=== PATIENT | male | born 1970 | race Caucasian/White ===

== ENCOUNTER 2022-03-05 15:16 | Emergency (ER) | payer OTHER ==
[~2022-03-05] VITALS: Ht 162.6 cm; Wt 93.4 kg
[2022-03-05 15:33] VITALS: BP 162/106
[2022-03-05 18:35] LABS: BASOPHILS # (AUTO) 0.1 K/uL (0.00-0.22); BASOPHILS % (AUTO) 0.7 % (0.0-2.0); EOSINOPHILS # (AUTO) 0.5 K/uL (0-0.4); EOSINOPHILS % (AUTO) 4.6 % (0.0-4.0); HEMATOCRIT 36.5 % (36-52); HEMOGLOBIN 12.1 g/dL (12.0-18.0); LYMPHOCYTES # (AUTO) 1.5 K/uL (2.0-11.5); MEAN CORPUSCULAR HEMOGLOBIN 31 pg (27-31); MEAN CORPUSCULAR HGB CONC 33 g/dL (33-37); MEAN CORPUSCULAR VOLUME 92.4 fL (80-94); MONOCYTES # (AUTO) 0.6 K/uL (0.8-1.0); MONOCYTES % (AUTO) 6.3 % (1.7-9.3); NEUTROPHILS # (AUTO) 7.3 K/uL (1.8-7.7); NEUTROPHILS % (AUTO) 73.4 % (42.2-75.2); PLATELET COUNT (AUTO) 260 K/uL (140-450); RED BLOOD CELL COUNT(AUTO) 3.95 MIL/uL (4.20-6.10); RED CELL DISTRIBUTION WIDTH 15.8 % (11.6-13.7); WHITE BLOOD COUNT (AUTO) 9.9 K/uL (4.8-10.8)
[2022-03-05 18:56] LABS: ALBUMIN 1.8 g/dL (3.4-5.0); ANION GAP 13.7 (8-16); CHLORIDE 103 mmol/L (98-107); CREATININE 1.3 mg/dL (0.6-1.3); GFR ARICAN-AMERICAN 75 mL/min (>90); GLUCOSE 136 mg/dL (74-106); POTASSIUM 4.7 mmol/L (3.5-5.1); SODIUM SERUM 135 mmol/L (136-145); TOTAL BILIRUBIN 1.5 mg/dL (0.0-1.0); UREA NITROGEN, BLOOD 19 mg/dL (7-18)
== END 2022-03-05 18:59 | disposition left against medical advice (07) ==
LOC: MED 15:16
DX: R14.0 Abdominal distension (gaseous) (principal); R11.10 Vomiting, unspecified; R06.02 Shortness of breath; Z87.19 Personal history of other diseases of the digestive system; R60.0 Localized edema; Z88.6 Allergy status to analgesic agent
CPT/HCPCS: 36415; 80053; 85025; 99283

== ENCOUNTER 2022-03-06 08:30 | Inpatient (IN) | payer OTHER ==
[~2022-03-06] VITALS: Ht 162.6 cm; Wt 95.7 kg
[2022-03-06 08:41] VITALS: BP 140/89
[2022-03-06] MEDS ORDERED: MORPHINE SULFATE 4 MG/ML SYR IVP ONE (09:05)
[2022-03-06] MEDS ORDERED: ONDANSETRON 4 MG/2 ML VIAL IVP ONE (09:05)
[2022-03-06] MEDS ORDERED: cefTRIAXone 2,000 MG in DEXTROSE 5% 100 ML IV ONE (09:05)
[2022-03-06] MEDS ORDERED: cefTRIAXone 2,000 MG VIAL ONE (09:10)
[2022-03-06] MEDS ORDERED: LIDOCAINE/EPI MPF 1%1:200000 30 ML VIAL INJ ONE (09:20)
[2022-03-06 09:28] LABS: BASOPHILS # (AUTO) 0.1 K/uL (0.00-0.22); BASOPHILS % (AUTO) 0.7 % (0.0-2.0); EOSINOPHILS # (AUTO) 0.6 K/uL (0-0.4); EOSINOPHILS % (AUTO) 6.9 % (0.0-4.0); HEMATOCRIT 36.2 % (36-52); LYMPHOCYTES # (AUTO) 1.9 K/uL (2.0-11.5); LYMPHOCYTES % (AUTO) 20.4 % (20.5-51.1); MEAN CORPUSCULAR HEMOGLOBIN 30 pg (27-31); MEAN CORPUSCULAR HGB CONC 33 g/dL (33-37); MEAN CORPUSCULAR VOLUME 91.6 fL (80-94); MONOCYTES # (AUTO) 0.6 K/uL (0.8-1.0); MONOCYTES % (AUTO) 6.8 % (1.7-9.3); NEUTROPHILS % (AUTO) 65.2 % (42.2-75.2); PLATELET COUNT (AUTO) 235 K/uL (140-450); RED BLOOD CELL COUNT(AUTO) 3.95 MIL/uL (4.20-6.10); RED CELL DISTRIBUTION WIDTH 15.5 % (11.6-13.7); WHITE BLOOD COUNT (AUTO) 9.2 K/uL (4.8-10.8)
--- NOTE | 2022-03-06 09:30 | NUR ---
X-Ray at bedside. Addendum: 03/06/22 at 1539 by MEDR The patient's care was reviewed and supervised by Christine Elias, RN, RN.
--- NOTE | 2022-03-06 09:40 | NUR ---
51 y/o male bib self, pt presents to ed with c/o abd pain for 2 weeks, pt was seen here yesterday with same s/s. a&ox4, syriac speaking, ambulates with steady gait. abd round/hard/tender with palpation. pmh: liver cirrhosis allergy: ibuprofen
[2022-03-06 09:45] LABS: PROTHROMBIN TIME 13.1 secs (10.8-13.4)
[2022-03-06 09:58] LABS: ALBUMIN 1.8 g/dL (3.4-5.0); ANION GAP 12.9 (8-16); CARBON DIOXIDE 23.4 mmol/L (21-32); CHLORIDE 104 mmol/L (98-107); CREATININE 1.2 mg/dL (0.6-1.3); GFR ARICAN-AMERICAN 82 mL/min (>90); GLUCOSE 91 mg/dL (74-106); POTASSIUM 4.3 mmol/L (3.5-5.1); TOTAL BILIRUBIN 1.6 mg/dL (0.0-1.0); UREA NITROGEN, BLOOD 20 mg/dL (7-18)
[2022-03-06 09:59] LABS: SODIUM SERUM 136 mmol/L (136-145)
[2022-03-06 10:05] LABS: APPEARANCE,URINE CLEAR (CLEAR); BILIRUBIN,URINE 1+ (NEGATIVE); BLOOD, URINE 3+ (NEGATIVE); COLOR,URINE YELLOW (YELLOW); LEUKOCYTE ESTERASE ,URINE NEGATIVE (NEGATIVE); NITRITE, URINE NEGATIVE (NEGATIVE); UGLUCOSE NEGATIVE (NEGATIVE)
[2022-03-06 10:25] LABS: OTHER CASTS, URINE None Seen /LPF (None Seen); RBC,URINE 11-20 (MOD) /HPF (0-5); WBC,URINE 0-5 /HPF (0-5)
--- NOTE | 2022-03-06 10:26 | NUR ---
Med recon done. Patient does not take any medication.
[2022-03-06] MEDS ORDERED: ONDANSETRON 4 MG/2 ML VIAL IVP PRN (10:30)
[2022-03-06] MEDS ORDERED: MORPHINE SULFATE 2 MG/ML SYR IVP PRN (10:30)
[2022-03-06] MEDS ORDERED: ACETAMINOPHEN 325 MG TAB PO PRN (10:30)
[2022-03-06] MEDS ORDERED: LORazepam 2 MG/ML VIAL IVP PRN (10:30)
[2022-03-06] MEDS ORDERED: HYDROcodone/APAP 5/325 MG 1 TAB TAB PO PRN (10:30)
[2022-03-06] MEDS ORDERED: LACTULOSE 20 GM/30 ML UDC PO ONE (10:55)
--- NOTE | 2022-03-06 11:07 | NUR ---
Patient will be admitted to care of DR. BURRELL. Admited to MED-SURG. Will go to room 122A. Belongings list completed. Report to BROCK MCDANIEL.
[2022-03-06] MEDS: LEVOFLOXACIN 750 MG/D5W PREMIX 150 ML IV SCH (11:40)
--- NOTE | 2022-03-06 11:56 | NUR ---
AROUND 1130, ER NURSE BROUGHT PATIENT TO [facility] WITH WHEELCHAIR. PATIENT IS ABLE TO AMBULATORY TO HIS BED WITH NO ASSIST. PER ER NURSE REPORT THAT PATIENT COME FROM HOME FOR ABDOMEN DISTENTION WITH PAIN. PATIENT DIAGNOSIS ASCITES W/ HX OF LIVER CIRRHOSIS. PATIENT IS FULL COD, ALLERGY TO IBUPROFEN, IV SITE AT R. AC 20G, SALINE LOCK. STRAIGHT I&O. OBSERVATIONS STATUS. ADMISSION VITAL WITHIN PATIENT'S BASELINE (T-P-R:[id number], BP:141/104 ON ROOM AIR, DENY PAIN). WILL CONTINUE TO MONITOR.
[2022-03-06] MEDS: ALBUMIN HUMAN 25% 100 ML IV SCH ×2 (14:12→21:44)
[2022-03-06 15:17] VITALS: BP 141/104
--- NOTE | 2022-03-06 19:31 | NUR ---
RECEIVED ENDORSEMENT FROM DAY SHIFT NURSE FOR CONTINUITY OF CARE. PT IS ON BED, AWAKE, ALERT AND VERBALLY RESPONSIVE. PT VERBA;IZED OF HAVING MILD AND TOLERABLE PAIN ON UPPER ABDOMEN AREA WHICH HE DOES NOT NEED MEDICATION AT THIS TIME. PT IS AT ROOM AIR. NO SOB OR DISTRESS. PT SALINE LOCK ON RIGHT AC 20G INTACT AND PATENT. SKIN INTACT, NO SKIN PROBLEM. CONTINUE MONITORING.
--- NOTE | 2022-03-06 19:32 | NUR ---
ENDORSE PATIENT TO PM SHIFT NURSE WHILE PATIENT REST ON BED, PIV R. AC 20G, SALINE LOCK. STRAIGHT I&O. OBSERVATIONS STATUS
[2022-03-06 20:00] VITALS: BP 154/101
--- NOTE | 2022-03-06 21:44 | NUR ---
INFUSE ALBUMIN WITH WELL TOLERATED, NO SIDE REACTION.
[2022-03-06] MEDS: FUROSEMIDE 40 MG/4 ML VIAL IVP SCH (21:45)
--- NOTE | 2022-03-06 23:44 | NUR ---
ALBUMIN INFUSION COMPLETED. WELL TOLERATED.
[2022-03-07] VITALS: BP 141/90
--- NOTE | 2022-03-07 00:15 | NUR ---
PT IS ASLEEP. NO SOB OR DISTRESS. NO GAGGING OR VOMITING.
[2022-03-07 04:00] VITALS: BP 121/64
[2022-03-07 05:26] LABS: BASOPHILS % (AUTO) 0.5 % (0.0-2.0); EOSINOPHILS # (AUTO) 0.4 K/uL (0-0.4); EOSINOPHILS % (AUTO) 4.8 % (0.0-4.0); HEMATOCRIT 32.6 % (36-52); HEMOGLOBIN 10.8 g/dL (12.0-18.0); LYMPHOCYTES # (AUTO) 1.3 K/uL (2.0-11.5); LYMPHOCYTES % (AUTO) 15.9 % (20.5-51.1); MEAN CORPUSCULAR HEMOGLOBIN 30 pg (27-31); MEAN CORPUSCULAR HGB CONC 33 g/dL (33-37); MONOCYTES # (AUTO) 0.7 K/uL (0.8-1.0); MONOCYTES % (AUTO) 8.9 % (1.7-9.3); NEUTROPHILS # (AUTO) 5.6 K/uL (1.8-7.7); NEUTROPHILS % (AUTO) 69.9 % (42.2-75.2); PLATELET COUNT (AUTO) 186 K/uL (140-450); RED BLOOD CELL COUNT(AUTO) 3.54 MIL/uL (4.20-6.10); RED CELL DISTRIBUTION WIDTH 15.4 % (11.6-13.7)
[2022-03-07] MEDS: ALBUMIN HUMAN 25% 100 ML IV SCH (05:34)
--- NOTE | 2022-03-07 05:34 | NUR ---
INFUSE ALBUMIN PER ORDER WITH WELL TOLERATED, NO SIDE REACTION.
[2022-03-07 06:12] LABS: ALBUMIN 2.3 g/dL (3.4-5.0); CARBON DIOXIDE 25.4 mmol/L (21-32); CREATININE 1.2 mg/dL (0.6-1.3); MAGNESIUM 1.9 mg/dL (1.8-2.4); POTASSIUM 4.4 mmol/L (3.5-5.1); TOTAL BILIRUBIN 1.5 mg/dL (0.0-1.0)
--- NOTE | 2022-03-07 07:26 | NUR ---
PT IS ASLEEP AND STABLE. ALL SAFETY MEASURES IN PLACE. WILL ENDORSE TO THE DAY SHIFT NURSE FOR CONTINUITY OF CARE.
[2022-03-07 08:00] VITALS: BP 126/74
[2022-03-07] MEDS: FUROSEMIDE 40 MG/4 ML VIAL IVP SCH ×2 (09:14→21:07)
[2022-03-07] MEDS: SPIRONOLACTONE 50 MG TAB PO SCH (09:14)
--- NOTE | 2022-03-07 09:27 | NUR ---
PATIENT HAS BEEN SCREENED AND CATEGORIZED LOW NUTRITION RISK. PATIENT WILL BE SEEN WITHIN 7 DAYS OF ADMISSION. 03/13/[address]
[2022-03-07 12:00] VITALS: BP 126/74
[2022-03-07] MEDS ORDERED: ALBUMIN HUMAN 25% 200 ML IV SCH (12:30)
[2022-03-07] MEDS: LEVOFLOXACIN 750 MG/D5W PREMIX 150 ML IV SCH (13:11)
[2022-03-07 16:00] VITALS: BP 118/66
--- NOTE | 2022-03-07 19:25 | NUR ---
RECEIVED PT ENDORSEMENT FROM DAY SHIFT NURSE FOR CONTINUITY OF CARE. PT IS ON BED AWAKE, ALERT AND RESPONSIVE. SKIN INTACT AND WARM. SALINE LOCK IV ON RIGHT AC INTACT AND PATENT. PT STATED FEELS BETTER THAN YESTERDAY. BILATERAL LOWER EXTREMITIES WITH PITTING EDEMA +4, PT STATED FEELING OF TOLERATED PAIN ON BLE WHEN SKIN IS PRESSED. CONTINUE MONITORING.
[2022-03-07 20:00] VITALS: BP 130/69
--- NOTE | 2022-03-07 21:10 | NUR ---
PT RECEIVES EVENING MED WITH WELL TOLERATED, NO SIDE REACTION. PT IS AWAKE ALERT AND VERBALLY RESPONSIVE.
[2022-03-08] VITALS: BP 122/70
--- NOTE | 2022-03-08 01:13 | NUR ---
PT IS SLEEPING, NO SOB OR DISTRESS.
--- NOTE | 2022-03-08 02:00 | NUR ---
PT ASLEEP. NO SOB OR DISTRESS.
[2022-03-08 04:00] VITALS: BP 123/71
--- NOTE | 2022-03-08 04:30 | NUR ---
PT USES RESTROOM, AMBULATE INDEPENDENTLY. DENIES OF ANY PAIN OR DISCOMFORT AT THIS TIME.
--- NOTE | 2022-03-08 07:22 | NUR ---
PT IS ON BED, ASLEEP AND ON STABLE CONDITION. NO SOB OR DISTRESS. ALL SAFETY MEASURES IN PLACE. ENDORSED TO DAY SHIFT NURSE FOR CONTINUITY OF CARE.
--- NOTE | 2022-03-08 07:30 | NUR ---
RECEIVED REPORT FROM [facility]. PT A/O X4. ABLE TO MAKE NEEDS KNOWN. NO SOB OR RESPIRATORY DISTRESS. ON RA. RR EVEN & UNLABORED. DENIES PAIN. LLQ DRESSING C/D/I (S/P PARACENTESIS 03/07/22 WITH 10 L OUT). BLE PITTING EDEMA +4. STRICT I&O. RAC #20 SL. NEEDS ALL MET AT THIS TIME. ALL SAFETY MEASURES IN PLACE.
[2022-03-08 08:00] VITALS: BP 108/68
[2022-03-08] MEDS: SPIRONOLACTONE 50 MG TAB PO SCH (09:07)
[2022-03-08] MEDS: FUROSEMIDE 40 MG/4 ML VIAL IVP SCH (09:07)
[2022-03-08 09:50] LABS: ANION GAP 7.5 (8-16); CARBON DIOXIDE 29.6 mmol/L (21-32); CREATININE 1.2 mg/dL (0.6-1.3); POTASSIUM 4.1 mmol/L (3.5-5.1)
[2022-03-08 10:14] LABS: ALBUMIN 2.4 g/dL (3.4-5.0); BILIRUBIN,DIRECT 0.7 mg/dL (0.0-0.3); MAGNESIUM 1.6 mg/dL (1.8-2.4); TOTAL BILIRUBIN 1.5 mg/dL (0.0-1.0)
[2022-03-08 10:19] LABS: BASOPHILS # (AUTO) 0.1 K/uL (0.00-0.22); BASOPHILS % (AUTO) 0.7 % (0.0-2.0); EOSINOPHILS # (AUTO) 0.4 K/uL (0-0.4); EOSINOPHILS % (AUTO) 5.6 % (0.0-4.0); HEMATOCRIT 37.5 % (36-52); HEMOGLOBIN 12.3 g/dL (12.0-18.0); LYMPHOCYTES # (AUTO) 1.3 K/uL (2.0-11.5); LYMPHOCYTES % (AUTO) 17.9 % (20.5-51.1); MEAN CORPUSCULAR HEMOGLOBIN 30 pg (27-31); MEAN CORPUSCULAR HGB CONC 33 g/dL (33-37); MEAN CORPUSCULAR VOLUME 92.3 fL (80-94); MONOCYTES # (AUTO) 0.5 K/uL (0.8-1.0); MONOCYTES % (AUTO) 6.2 % (1.7-9.3); NEUTROPHILS # (AUTO) 5.2 K/uL (1.8-7.7); NEUTROPHILS % (AUTO) 69.6 % (42.2-75.2); PLATELET COUNT (AUTO) 185 K/uL (140-450); RED BLOOD CELL COUNT(AUTO) 4.06 MIL/uL (4.20-6.10); RED CELL DISTRIBUTION WIDTH 15.5 % (11.6-13.7); WHITE BLOOD COUNT (AUTO) 7.4 K/uL (4.8-10.8)
[2022-03-08] MEDS ORDERED: MAG SULF 2000 MG/WATER PREMIX 100 ML IV SCH (11:00)
[2022-03-08] MEDS: LEVOFLOXACIN 750 MG/D5W PREMIX 150 ML IV SCH (11:01)
--- NOTE | 2022-03-08 12:40 | NUR ---
ONE TIME DOSE MAGNESIUM SULFATE IVPB GIVEN PER MD ORDER. ALL QUESTIONS ANSWERED. ALL NEEDS MET. ALL SAFETY MEASURES IN PLACE.
[2022-03-08 16:00] VITALS: BP 127/81
[2022-03-08] MEDS: FUROSEMIDE 40 MG TAB PO SCH (16:07)
--- NOTE | 2022-03-08 17:34 | NUR ---
PT RESTING COMFORTABLY IN BED. NO SOB NOTED. RR EVEN & UNLABORED. NO COMPLAINTS AT THIS TIME. ALL SAFETY MEASURES IN PLACE.
--- NOTE | 2022-03-08 19:26 | NUR ---
REPORT GIVEN TO NIGHTSHIFT NURSEJEFERSON FOR CONTINUITY OF CARE. PT STABLE.
--- NOTE | 2022-03-08 19:27 | NUR ---
RECEIVED SHIFT REPORT FROM CHRIS GUTIÉRREZ, PATIENT WAS STABLE DURING SHIFT REPORT. PATIENT WAS IN BED AWAKE WATCHING TV. PATIENT CAN VERBALIZE WHY HE IS IN THE HOSPITAL. NURSING NOTED DRESSING CLEAN AND INTACT ON HIS LEFT LATERAL ABDOMEN WHERE PARACENTESIS WAS DONE 03/07/22. PATIENT WAS BREATHING ON ROOM AIR WITHOUT INCIDENT. KEPT CLEAN AND DRY. SIDE RAILS UP X 3 FOR SAFETY AND REPOSITIONING. CALL LIGHT WITHIN REACH FOR ASSISTANCE AND PATIENT WAS ENCOURAGE TO USE THE CALL LIGHT. [email or web address]
[2022-03-08 20:00] VITALS: BP 102/72
--- NOTE | 2022-03-08 22:02 | NUR ---
COVERING RN NEHAL WAS GIVEN A WRITTEN REPORT OF PATIENT AND IV COVERAGES TO COVER FOR THE ENTIRE SHIFT. NEHAL WAS ENCOURAGED TO CHECK IN THE CHART TO VERIFY THE REPORT AND LOOK FOR ANY UPDATED NEW ORDERS. [email or web address]
--- NOTE | 2022-03-08 23:56 | NUR ---
PATIENT NOTED IN BED ASLEEP. NO NOTED S/S OF PAIN/DISCOMFORT. NO NOTED S/S OF RESPIRATORY DISTRESS. CALL LIGHT WITHIN REACH FOR ASSISTANCE. [email or web address]
--- NOTE | 2022-03-09 01:21 | NUR ---
PATIENT NOTED IN BED ASLEEP. NO NOTED S/S OF PAIN/DISCOMFORT. NO NOTED S/S OF RESPIRATORY DISTRESS. CALL LIGHT WITHIN REACH FOR ASSISTANCE. [email or web address]
--- NOTE | 2022-03-09 03:40 | NUR ---
PATIENT NOTED IN BED ASLEEP. NO NOTED S/S OF PAIN/DISCOMFORT. NO NOTED S/S OF RESPIRATORY DISTRESS. CALL LIGHT WITHIN REACH FOR ASSISTANCE. [email or web address]
--- NOTE | 2022-03-09 05:11 | NUR ---
PATIENT WAS ABLE TO SLEEP DURING THE NIGHT. PATIENT WAS CONCERN ABOUT HIS BLOOD PRESSURE NOTED LOW, NURSING STAFF GAVE PATIENT EDUCATION ON THE MATTER. PATIENT UNDERSTOOD AND WAS ABLE TO REPEAT BACK WITH UNDERSTANDING. DRESSING TO ABDOMEN STILL INTACT. PATIENT REMAIN CLEAN AND DRY. SIDE RAILS UP X 2 FOR SAFETY AND ADJUSTMENT. CALL LIGHT WITHIN REACH. [email or web address]
--- NOTE | 2022-03-09 07:35 | NUR ---
ENDORSED PATIENT TO CHRIS RN, PATIENT WAS STABLE DURING SHIFT CHANGE. [email or web address]
--- NOTE | 2022-03-09 07:36 | NUR ---
RECEIVED REPORT FROM NIGHTSHIFT NURSE. PT A/O X4. ABLE TO MAKE NEEDS KNOWN. NO SOB OR RESPIRATORY DISTRESS. ON RA. ABDOMEN DISTENDED. LLQ WITH DRESSING C/D/I, (S/P PARACENTESIS 03/07). PITTING EDEMA +4 BLE. IV TO SL. SKIN INTACT. PLAN OF CARE DISCUSSED. ALL NEEDS MET AT THIS TIME. ALL SAFETY MEASURES IN PLACE.
[2022-03-09 08:00] VITALS: BP 111/61
[2022-03-09] MEDS: FUROSEMIDE 40 MG TAB PO SCH (08:39)
[2022-03-09] MEDS: SPIRONOLACTONE 50 MG TAB PO SCH (08:39)
[2022-03-09] MEDS ORDERED: FURO40TA9 PO (09:36)
[2022-03-09] MEDS ORDERED: LEVO750T75 PO (09:36)
[2022-03-09] MEDS ORDERED: ACET-1182 PO (09:36)
[2022-03-09] MEDS ORDERED: SPIR50TA PO (09:36)
[2022-03-09] MEDS: LEVOFLOXACIN 750 MG/D5W PREMIX 150 ML IV SCH (11:26)
--- NOTE | 2022-03-09 11:30 | NUR ---
ANTIBIOTICS INFUSING. PT IN NO DISTRESS. ON RA. DENIES PAIN. NEEDS ALL MET. ALL SAFETY MEASURES IN PLACE.
[2022-03-09 12:53] VITALS: BP 111/61
--- NOTE | 2022-03-09 14:40 | NUR ---
DISCHARGE INSTRUCTIONS GIVEN. PT VERBALIZED UNDERSTANDING. IV ON RAC #20 FLUSHED AND DISCONTINUED, CATHETER INTACT, NO ACTIVE BLEEDING. PT WHEELED OUT VIA WHEELCHAIR.
== END 2022-03-09 14:40 | disposition home or self-care (01) | DRG 720 ==
LOC: MED 08:30 → MMU 10:36 → MTU 10:54 → OBSVTOIN 03-08 09:37
PROVIDERS: ADMIT Hospitalist; ATTEND Hospitalist
PROC: 0W9G3ZZ Drainage of Peritoneal Cavity, Percutaneous Approach (ICD-10-PCS; principal; 2022-03-07)
DX: A41.9 Sepsis, unspecified organism (principal); E43 Unspecified severe protein-calorie malnutrition; K65.2 Spontaneous bacterial peritonitis; R18.8 Other ascites; E88.09 Other disorders of plasma-protein metabolism, not elsewhere classified; K74.60 Unspecified cirrhosis of liver; E80.6 Other disorders of bilirubin metabolism; Z20.822 Contact with and (suspected) exposure to COVID-19; Z88.1 Allergy status to other antibiotic agents
CPT/HCPCS: 49083; G0378; 36415; 71045; 76705; 80048; 80053; 80076; 81001; 82140; 82550; 82553; 83605; 83735; 83880; 84484; 85025; 85610; 85730; 87040; 87081; 87086; 93005; J0696; J1940; J1956; J2001; J2270; J2405; J3475; P9046; Q0092

== ENCOUNTER 2022-07-28 10:47 | Inpatient (IN) | payer OTHER ==
[~2022-07-28] VITALS: Ht 162.6 cm; Wt 79.4 kg
[~2022-07-28 10:47] MED LIST: FURO40TA9 PO; SPIR50TA PO
[2022-07-28 11:10] VITALS: BP 146/85
--- NOTE | 2022-07-28 11:11 | NUR ---
PT AMB TO BED 6
--- NOTE | 2022-07-28 11:31 | NUR ---
52 Y/O MALE BIB SELF C/O ABD PAIN AND SOB SECONDARY TO ASCITES, NOTED JAUNDICED SKIN AND ABD DISTENTION AT THIS TIME. DENIES ANY NVD. STATES THAT HIS LAST PARACENTESIS WAS 1 MONTH AGO. CHANGED INTO A GOWN AND PLACED ON BEDSIDE MONITOR. HOB ADJUSTED FOR COMFORT PMH: LIVER DISEASE, ASCITES, PARACENTESIS, LIVER CIRRHOSIS
--- NOTE | 2022-07-28 13:27 | NUR ---
CALL RECEIVED FROM PREETI Fang AT [facility]. "PLACE PT UNDER OBSERVATION UNTIL PENDING LABS ARE COMPLETED "
[2022-07-28 13:38] LABS: BASOPHILS # (AUTO) 0.1 K/uL (0.00-0.22); BASOPHILS % (AUTO) 1.2 % (0.0-2.0); EOSINOPHILS # (AUTO) 0.2 K/uL (0-0.4); HEMATOCRIT 21.4 % (36-52); HEMOGLOBIN 7.2 g/dL (12.0-18.0); LYMPHOCYTES # (AUTO) 1.2 K/uL (2.0-11.5); LYMPHOCYTES % (AUTO) 16.2 % (20.5-51.1); MEAN CORPUSCULAR HEMOGLOBIN 29 pg (27-31); MEAN CORPUSCULAR HGB CONC 34 g/dL (33-37); MEAN CORPUSCULAR VOLUME 86.2 fL (80-94); MONOCYTES # (AUTO) 0.7 K/uL (0.8-1.0); MONOCYTES % (AUTO) 9.4 % (1.7-9.3); NEUTROPHILS # (AUTO) 5.3 K/uL (1.8-7.7); NEUTROPHILS % (AUTO) 70.2 % (42.2-75.2); PLATELET COUNT (AUTO) 247 K/uL (140-450); RED BLOOD CELL COUNT(AUTO) 2.48 MIL/uL (4.20-6.10); RED CELL DISTRIBUTION WIDTH 14.1 % (11.6-13.7); WHITE BLOOD COUNT (AUTO) 7.5 K/uL (4.8-10.8)
[2022-07-28] MEDS ORDERED: POTASSIUM CHLORIDE 10 MEQ TABER PO PRN (14:00)
[2022-07-28] MEDS ORDERED: ACETAMINOPHEN 325 MG TAB PO PRN (14:00)
[2022-07-28] MEDS ORDERED: MAG SULF 2000 MG/WATER PREMIX 50 ML IV PRN (14:00)
[2022-07-28] MEDS ORDERED: HYDROcodone/APAP 7.5/325 MG 1 TAB PO PRN (14:00)
[2022-07-28] MEDS ORDERED: ONDANSETRON 4 MG/2 ML VIAL IVP PRN (14:00)
[2022-07-28] MEDS ORDERED: PANT40EC56 PO (14:01)
[2022-07-28] MEDS ORDERED: BUME1TAB92 PO (14:02)
[2022-07-28 14:03] LABS: PROTHROMBIN TIME 12.8 secs (10.8-13.4)
[2022-07-28] MEDS ORDERED: LACT10SO40 PO (14:03)
[2022-07-28 14:14] LABS: ALBUMIN 2.7 g/dL (3.4-5.0); ANION GAP 8.7 (8-16); CARBON DIOXIDE 28.4 mmol/L (21-32); CREATININE 1.5 mg/dL (0.6-1.3); POTASSIUM 4.1 mmol/L (3.5-5.1)
[2022-07-28 14:22] LABS: APPEARANCE,URINE CLEAR (CLEAR); BILIRUBIN,URINE NEGATIVE (NEGATIVE); BLOOD, URINE 3+ (NEGATIVE); LEUKOCYTE ESTERASE ,URINE NEGATIVE (NEGATIVE); NITRITE, URINE NEGATIVE (NEGATIVE); PH,URINE 5.5 (5.0-9.0); UGLUCOSE NEGATIVE (NEGATIVE)
[2022-07-28 14:26] LABS: COLOR,URINE AMBER (YELLOW)
--- NOTE | 2022-07-28 14:30 | NUR ---
US AT BEDSIDE
[2022-07-28 14:35] LABS: WBC,URINE 0-5 /HPF (0-5)
--- NOTE | 2022-07-28 14:44 | NUR ---
XRAY AT BEDSIDE
--- NOTE | 2022-07-28 14:51 | NUR ---
LAB AT BEDSIDE
[2022-07-28 14:59] LABS: AMYLASE 29 U/L (25-115); CHOL/HDL RATIO 2.8 (1-4.5); HDL CHOLESTEROL 48 mg/dL (40-60); LDL (CALC) 78 mg/dL (60-100); MAGNESIUM 2.1 mg/dL (1.8-2.4); PHOSPHORUS 3.4 mg/dL (2.5-4.9); THYROID STIMULATING HORMONE 2.91 uIU/mL (0.34-3.74); TRIGLYCERIDES 45 mg/dL (30-150)
--- NOTE | 2022-07-28 19:21 | NUR ---
REPORT GIVEN TO JUICE SHAW. TRANSFER OF CARE AT THIS TIME
--- NOTE | 2022-07-28 20:00 | NUR ---
pt awaiting admission, on personnel monitor.
[2022-07-28] MEDS: DOCUSATE SODIUM 100 MG GELCAP PO SCH (20:50)
--- NOTE | 2022-07-28 23:13 | NUR ---
pt repositioned for comfort, awaiting admission
--- NOTE | 2022-07-29 01:30 | NUR ---
pt resting in room and on surveillance system monitor awaiting admission. mouth care provided due to NPO status.
--- NOTE | 2022-07-29 03:15 | NUR ---
pt resting in room and stated his pain went down to a 3/10
--- NOTE | 2022-07-29 06:44 | NUR ---
lab at bedside
[2022-07-29 07:08] LABS: BASOPHILS # (AUTO) 0.1 K/uL (0.00-0.22); BASOPHILS % (AUTO) 1.4 % (0.0-2.0); EOSINOPHILS # (AUTO) 0.3 K/uL (0-0.4); EOSINOPHILS % (AUTO) 4.1 % (0.0-4.0); HEMATOCRIT 21.7 % (36-52); HEMOGLOBIN 7.2 g/dL (12.0-18.0); LYMPHOCYTES # (AUTO) 1.7 K/uL (2.0-11.5); LYMPHOCYTES % (AUTO) 25.5 % (20.5-51.1); MEAN CORPUSCULAR HEMOGLOBIN 29 pg (27-31); MEAN CORPUSCULAR HGB CONC 33 g/dL (33-37); MONOCYTES # (AUTO) 0.6 K/uL (0.8-1.0); MONOCYTES % (AUTO) 9.3 % (1.7-9.3); NEUTROPHILS # (AUTO) 3.9 K/uL (1.8-7.7); NEUTROPHILS % (AUTO) 59.7 % (42.2-75.2); PLATELET COUNT (AUTO) 261 K/uL (140-450); RED BLOOD CELL COUNT(AUTO) 2.52 MIL/uL (4.20-6.10); RED CELL DISTRIBUTION WIDTH 13.8 % (11.6-13.7); WHITE BLOOD COUNT (AUTO) 6.6 K/uL (4.8-10.8)
--- NOTE | 2022-07-29 07:23 | NUR ---
Pt report given to Yuni. Transfer of care at this time.
--- NOTE | 2022-07-29 07:27 | NUR ---
Report recieved from COLIN Donald for transfer of care.
[2022-07-29 07:31] LABS: ANION GAP 10.4 (8-16); CARBON DIOXIDE 27.5 mmol/L (21-32); CREATININE 1.3 mg/dL (0.6-1.3); POTASSIUM 3.9 mmol/L (3.5-5.1)
[2022-07-29 07:35] LABS: MAGNESIUM 2.3 mg/dL (1.8-2.4); PHOSPHORUS 4.4 mg/dL (2.5-4.9)
--- NOTE | 2022-07-29 09:15 | NUR ---
Patient is currently laying in bed, all needs met by staff.
[2022-07-29] MEDS: PANTOPRAZOLE 40 MG INJ VIAL IVP SCH (09:17)
[2022-07-29] MEDS: DOCUSATE SODIUM 100 MG GELCAP PO SCH ×2 (09:21→21:38)
[2022-07-29] MEDS: FUROSEMIDE 40 MG TAB PO SCH (09:22)
[2022-07-29] MEDS: SPIRONOLACTONE 50 MG TAB PO SCH (09:24)
--- NOTE | 2022-07-29 11:45 | NUR ---
Patient requesting to eat or he will go AMA. Patient explained he is currently NPO. Dr. Sears notified of patients request.
--- NOTE | 2022-07-29 12:12 | NUR ---
per md aviles, pt is okay for liquid diet at this time, but npo at midnight
--- NOTE | 2022-07-29 13:22 | NUR ---
Patient was offered a snack.
--- NOTE | 2022-07-29 16:55 | NUR ---
Per patient, brother dropped off liquids for him to eat. Patient noted to be drinking juice.
--- NOTE | 2022-07-29 18:24 | NUR ---
Patient is laying in bed, respirations even and unlabored. All needs met by staff.
--- NOTE | 2022-07-29 19:11 | NUR ---
Report given to COLIN Donald for transfer of care.
--- NOTE | 2022-07-29 19:28 | NUR ---
PT IN ROOM ON THE PHONE, PT STATED PAIN IS 3/10. NPO AFTER 0000, CLEAR LIQUID DIET
--- NOTE | 2022-07-29 20:00 | NUR ---
pt repostioned for comfort, pt denied pain at this time
--- NOTE | 2022-07-29 21:47 | NUR ---
report given to mathew clements
--- NOTE | 2022-07-29 22:00 | NUR ---
Patient will be admitted to care of Dr. Benson. Admited to Tele. Will go to room 111A. Belongings list completed. Report to Ani GUTIÉRREZ.
[2022-07-29 22:05] VITALS: BP 120/72
--- NOTE | 2022-07-29 22:05 | NUR ---
PATIENT ADMITTED FROM ED, CAME VIA GURNEY, TRANSFERRED TO BED X3 STAFF. PATIENT IS AWAKE, ALERT AND ORIENTED, DENIES PAIN, SOB NOTED WITH EXERTION. VITALS TAKEN, MRSA DONE. ASCITES NOTED. PATIENT ORIENTED TO ROOM, ALL SAFETY MEASURES IN PLACE.
--- NOTE | 2022-07-29 23:30 | NUR ---
URINE COLLECTED FOR DRUG SCREEN, SENT TO LAB.
[2022-07-30] VITALS: BP 128/75
[2022-07-30 01:40] LABS: BARBITURATE, URINE NEGATIVE ng/ml (NEG <=200); BENZODIAZEPINE, URINE NEGATIVE ng/mL (NEG <=200); CANNABINOID, URINE NEGATIVE ng/mL (NEG <=50); COCAINE, URINE NEGATIVE ng/mL (NEG <=300); OPIATE, URINE POSITIVE ng/mL (NEG <=2000); PHENCYCLIDINE SCREEN,URINE NEGATIVE ng/mL (NEG <=25)
--- NOTE | 2022-07-30 03:16 | NUR ---
PATIENT IS ASLEEP, NO SIGNS OF DISTRESS NOTED. CALL LIGHT WITHIN REACH.
[2022-07-30 04:00] VITALS: BP 121/80
--- NOTE | 2022-07-30 07:13 | NUR ---
ENDORSED PATIENT TO DAY NURSE FOR CONTINUITY OF CARE. NEEDS MET THROUGHOUT THE SHIFT, PATIENT IN STABLE CONDITION.
[2022-07-30 07:28] LABS: ANION GAP 10.2 (8-16); CARBON DIOXIDE 27.5 mmol/L (21-32); CREATININE 1.3 mg/dL (0.6-1.3); POTASSIUM 3.7 mmol/L (3.5-5.1)
[2022-07-30 07:29] LABS: MAGNESIUM 1.9 mg/dL (1.8-2.4); PHOSPHORUS 3.8 mg/dL (2.5-4.9)
[2022-07-30 07:50] VITALS: BP 129/80
[2022-07-30 07:52] LABS: BASOPHILS # (AUTO) 0.1 K/uL (0.00-0.22); EOSINOPHILS # (AUTO) 0.2 K/uL (0-0.4); LYMPHOCYTES # (AUTO) 1.4 K/uL (2.0-11.5); LYMPHOCYTES % (AUTO) 22.4 % (20.5-51.1); MEAN CORPUSCULAR HEMOGLOBIN 29 pg (27-31); MEAN CORPUSCULAR HGB CONC 34 g/dL (33-37); MEAN CORPUSCULAR VOLUME 84.9 fL (80-94); MONOCYTES # (AUTO) 0.6 K/uL (0.8-1.0); MONOCYTES % (AUTO) 9.3 % (1.7-9.3); NEUTROPHILS # (AUTO) 3.9 K/uL (1.8-7.7); NEUTROPHILS % (AUTO) 64.3 % (42.2-75.2); PLATELET COUNT (AUTO) 243 K/uL (140-450); RED BLOOD CELL COUNT(AUTO) 2.31 MIL/uL (4.20-6.10); RED CELL DISTRIBUTION WIDTH 13.8 % (11.6-13.7); WHITE BLOOD COUNT (AUTO) 6.1 K/uL (4.8-10.8)
[2022-07-30 08:29] LABS: HEMATOCRIT 19.6 % (36-52); HEMOGLOBIN 6.7 g/dL (12.0-18.0)
--- NOTE | 2022-07-30 08:47 | NUR ---
PATIENT HAS BEEN SCREENED AND CATEGORIZED MODERATE NUTRITION RISK. PATIENT WILL BE SEEN WITHIN 3-5 DAYS OF ADMISSION. 07/28/22-08/02/[address]
[2022-07-30] MEDS ORDERED: LIDOCAINE MPF 1% 0 ML ONE (09:33)
[2022-07-30] MEDS: SPIRONOLACTONE 50 MG TAB PO SCH (09:56)
[2022-07-30] MEDS: FUROSEMIDE 40 MG TAB PO SCH (09:56)
[2022-07-30] MEDS: PANTOPRAZOLE 40 MG INJ VIAL IVP SCH (09:56)
[2022-07-30] MEDS: DOCUSATE SODIUM 100 MG GELCAP PO SCH ×2 (09:56→20:42)
[2022-07-30 12:22] VITALS: BP 112/68
--- NOTE | 2022-07-30 14:25 | NUR ---
PATIENT REFUSES BLOOD TRANSFUSION.
[2022-07-30 17:42] LABS: SPECIMENTYPE,BODY FLUID PARACENTESIS
[2022-07-30 17:43] LABS: APPEARANCE,SPUN,BODY FLUID CLEAR (CLEAR); APPEARANCE,UNSPUN,BODY FLUID CLEAR (CLEAR); COLOR,BODY FLUID YELLOW (LT YELLOW); GLUCOSE,BODY FLUID 105 mg/dL; RBC, BODY FLUID 16 /cu. mm.; TOTAL VOLUME,BODY FLUID 16.5 mL; WBC, BODY FLUID 2 /cu. mm.
[2022-07-30 18:39] VITALS: BP 111/95
--- NOTE | 2022-07-30 19:30 | NUR ---
PATIENT IN BED, IS AWAKE, ALERT AND ORIENTED, DENIES PAIN UPON ASSESSMENT, NO SIGNS OF DISTRESS NOTED. CALL LIGHT WITHIN REACH.
[2022-07-30 20:00] VITALS: BP 106/55
--- NOTE | 2022-07-30 20:42 | NUR ---
SCHEDULED MEDICATION GIVEN ORDERED.
--- NOTE | 2022-07-31 00:30 | NUR ---
PATIENT IS AWAKE, TALKING WITH ROOM MATE. PATIENT DENIES PAIN, DENIES SOB UPON ASSESSMENT. PATIENT INFORMED OF NPO STATUS, VERBALIZED UNDERSTANDING.
[2022-07-31 04:00] VITALS: BP 98/55
--- NOTE | 2022-07-31 07:26 | NUR ---
ENDORSED TO DAY NURSE FOR CONTINUITY OF CARE. NEEDS MET THROUGHOUT THE SHIFT. PATIENT IN STABLE CONDITION.
--- NOTE | 2022-07-31 07:30 | NUR ---
RECEIVED REPORT FROM PAPER REWINDER. PT IN BED WITH HOB ELEVATED. AOX4, ABLE TO MAKE NEEDS KNOWN. ON ROOM AIR, NO C/O PAIN. AMBULATORY TO BATHROOM. LAC IV 20G SALINE LOCKED
[2022-07-31] MEDS ORDERED: fentaNYL citrate 0.05 MG/ML VIAL ONE (07:58)
[2022-07-31] MEDS ORDERED: MIDAZOLAM 5 MG/5 ML VIAL ONE (07:58)
--- NOTE | 2022-07-31 08:30 | NUR ---
EDUCATION PROVIDED REGARDING EGD AND BLOOD TRANSFUSION. PT REFUSED BOTH PROCEDURES DR LUNA NOTIFIED
[2022-07-31] MEDS: PANTOPRAZOLE 40 MG INJ VIAL IVP SCH (08:43)
[2022-07-31] MEDS: DOCUSATE SODIUM 100 MG GELCAP PO SCH (08:43)
[2022-07-31] MEDS: SPIRONOLACTONE 50 MG TAB PO SCH (08:43)
[2022-07-31] MEDS: FUROSEMIDE 40 MG TAB PO SCH (08:43)
[2022-07-31 10:19] VITALS: BP 115/66
[2022-07-31] MEDS ORDERED: EPOETIN ALFA-EPBX 4,000 UNITS/ML VIAL ONE (10:55)
--- NOTE | 2022-07-31 10:55 | NUR ---
DR LUNA AT BEDSIDE SPEAKING TO PT. PT DECIDED TO GO AMA
[2022-07-31] MEDS ORDERED: EPOETIN ALFA-EPBX 4,000 UNITS/ML VIAL SUBQ SCH (11:00)
--- NOTE | 2022-07-31 11:05 | NUR ---
RETACRIT GIVEN ORDERED. PT SIGNED AMA FORM. ASSISTED TO FRONT LOBBY
== END 2022-07-31 11:05 | disposition left against medical advice (07) | DRG 280 ==
LOC: MED 10:47 → MTU 14:03
PROC: 0W9G3ZZ Drainage of Peritoneal Cavity, Percutaneous Approach (ICD-10-PCS; principal; 2022-07-31)
DX: K70.31 Alcoholic cirrhosis of liver with ascites (principal); N17.0 Acute kidney failure with tubular necrosis; E44.0 Moderate protein-calorie malnutrition; E87.1 Hypo-osmolality and hyponatremia; Z20.822 Contact with and (suspected) exposure to COVID-19; D64.9 Anemia, unspecified; E83.51 Hypocalcemia; R31.9 Hematuria, unspecified; N40.0 Benign prostatic hyperplasia without lower urinary tract symptoms; Z91.199 Patient's noncompliance with other medical treatment and regimen due to unspecified reason; Z88.6 Allergy status to analgesic agent; Z79.899 Other long term (current) drug therapy; Z68.30 Body mass index [BMI] 30.0-30.9, adult; I85.10 Secondary esophageal varices without bleeding
CPT/HCPCS: 36415; 71045; 76705; 80048; 80053; 80305; 81001; 82140; 82150; 82945; 83036; 83605; 83690; 83735; 83880; 84100; 84157; 84439; 84443; 84484; 85025; 85610; 85730; 86886; 86900; 86901; 86920; 87081; 87086; 89051; 93005; 96374; 99285; C9113; J2001; J2250; J3010; Q0092; Q5106

== ENCOUNTER 2022-08-20 10:16 | Emergency (ER) | payer OTHER ==
[~2022-08-20] VITALS: Ht 152.4 cm; Wt 80.3 kg
[~2022-08-20 10:16] MED LIST changes: +BUME1TAB92 PO; -FURO40TA9 PO; +LACT10SO40 PO; +PANT40EC56 PO; -SPIR50TA PO
[2022-08-20 10:34] VITALS: BP 126/79
[2022-08-20 11:20] LABS: BASOPHILS # (AUTO) 0.1 K/uL (0.00-0.22); BASOPHILS % (AUTO) 1.1 % (0.0-2.0); EOSINOPHILS # (AUTO) 0.4 K/uL (0-0.4); EOSINOPHILS % (AUTO) 5.8 % (0.0-4.0); HEMATOCRIT 26.1 % (36-52); HEMOGLOBIN 8.6 g/dL (12.0-18.0); LYMPHOCYTES # (AUTO) 1.3 K/uL (2.0-11.5); MEAN CORPUSCULAR HEMOGLOBIN 28 pg (27-31); MEAN CORPUSCULAR HGB CONC 33 g/dL (33-37); MONOCYTES # (AUTO) 0.4 K/uL (0.8-1.0); MONOCYTES % (AUTO) 6.1 % (1.7-9.3); NEUTROPHILS # (AUTO) 4.8 K/uL (1.8-7.7); PLATELET COUNT (AUTO) 207 K/uL (140-450); RED BLOOD CELL COUNT(AUTO) 3.07 MIL/uL (4.20-6.10); RED CELL DISTRIBUTION WIDTH 17.1 % (11.6-13.7)
[2022-08-20 11:41] LABS: ALBUMIN 2.3 g/dL (3.4-5.0); ANION GAP 9.8 (8-16); CARBON DIOXIDE 25.2 mmol/L (21-32); CREATININE 1.2 mg/dL (0.6-1.3); TOTAL BILIRUBIN 0.7 mg/dL (0.0-1.0)
--- NOTE | 2022-08-20 11:46 | NUR ---
52 Y/O MALE BIB SELF C/O ABD DISTENTION, LAST PARACENTESIS 08/12/22 IN [facility], PER PT LAST CENTESIS REMOVED 12LITERS. DENIES ANY NVD ALLERGY: MOTRIN PMH: LIVER CIRRHOSIS, KIDNEY FAILURE
--- NOTE | 2022-08-20 11:52 | NUR ---
ASSUMED PATIENT , NURSING ASSESSMENT COMPLETED.
--- NOTE | 2022-08-20 12:16 | NUR ---
SEEN AND EVALUATED BY , MSE COMPLETED.
[2022-08-20] MEDS ORDERED: ALBUMIN HUMAN 25% 100 ML IV ONE (15:05)
[2022-08-20 16:31] VITALS: BP 119/68
--- NOTE | 2022-08-20 16:32 | NUR ---
Patient discharged with v/s stable. Written and verbal after care instructions given and explained. Patient verbalized understanding. Ambulatory with steady gait. All questions addressed prior to discharge. Advised to follow up with PMD.
== END 2022-08-20 16:32 | disposition home or self-care (01) ==
LOC: MED 10:16
DX: R18.8 Other ascites (principal); K74.60 Unspecified cirrhosis of liver; Z79.1 Long term (current) use of non-steroidal anti-inflammatories (NSAID); Z79.899 Other long term (current) drug therapy
CPT/HCPCS: 36415; 49083; 80053; 83690; 85025; 96365; 99285; P9046

== ENCOUNTER 2022-08-31 15:09 | Emergency (ER) | payer OTHER ==
[~2022-08-31] VITALS: Ht 162.6 cm; Wt 77.1 kg
[2022-08-31 15:26] VITALS: BP 137/74
[2022-08-31] MEDS ORDERED: MORPHINE SULFATE 4 MG/ML SYR IM ONE (16:00)
--- NOTE | 2022-08-31 19:27 | NUR ---
Patiet lying in bed, A/Ox4, chest rise and fall symmetrical, no c/o pain or s/s of distress.
--- NOTE | 2022-08-31 19:28 | NUR ---
Note schuyler in EDM - 08/31/22 at 1929 by [email or web address] Patiet lying in bed, A/Ox4, chest rise and fall symmetrical, no c/o pain or s/s of distress.
--- NOTE | 2022-08-31 20:00 | NUR ---
Patiet lying in bed, A/Ox4, chest rise and fall symmetrical, no c/o pain or s/s of distress.
--- NOTE | 2022-08-31 20:30 | NUR ---
Patiet lying in bed, A/Ox4, chest rise and fall symmetrical, no c/o pain or s/s of distress.
--- NOTE | 2022-08-31 21:40 | NUR ---
Paracentesis draining stopped, total 11 bottles. ER physician aware. Patient lying in bed, A/Ox4, chest rise and fall symmetrical, no c/o pain or s/s of distress.
--- NOTE | 2022-08-31 21:50 | NUR ---
Patient discharged with v/s stable, procedure site covered, no drainage or bleeding. Ambulatory with steady gait. Patiet A/Ox4, chest rise and fall symmetrical, no c/o pain or s/s of distress. Written and verbal after care instructions given and explained. Patient verbalized understanding. All questions addressed prior to discharge. Advised to follow up with PMD.
[2022-08-31 21:55] VITALS: BP 108/61
== END 2022-08-31 21:50 | disposition home or self-care (01) ==
LOC: MED 15:09
DX: R18.8 Other ascites (principal); Z79.899 Other long term (current) drug therapy; Z88.6 Allergy status to analgesic agent
CPT/HCPCS: 49083; 96372; 99285; J2270

== ENCOUNTER 2022-09-17 07:25 | Inpatient (IN) | payer OTHER ==
[~2022-09-17] VITALS: Ht 162.6 cm; Wt 79.4 kg
[~2022-09-17 07:25] MED LIST changes: +LACT-58 PO; -LACT10SO40 PO
[2022-09-17 07:48] VITALS: BP 112/67
--- NOTE | 2022-09-17 07:50 | NUR ---
PT AMBULATED TO ER BED 4
[2022-09-17] MEDS ORDERED: MAG SULF 2000 MG/WATER PREMIX 50 ML IV PRN (08:00)
--- NOTE | 2022-09-17 08:40 | NUR ---
ASSUMED PATIENT CARE, NURSING ASSESSMENT COMPLETED.
[2022-09-17 08:44] LABS: BASOPHILS # (AUTO) 0.1 K/uL (0.00-0.22); BASOPHILS % (AUTO) 1.3 % (0.0-2.0); EOSINOPHILS # (AUTO) 0.2 K/uL (0-0.4); EOSINOPHILS % (AUTO) 3.4 % (0.0-4.0); HEMATOCRIT 21.7 % (36-52); HEMOGLOBIN 7.1 g/dL (12.0-18.0); LYMPHOCYTES # (AUTO) 0.9 K/uL (2.0-11.5); LYMPHOCYTES % (AUTO) 18.3 % (20.5-51.1); MEAN CORPUSCULAR HEMOGLOBIN 26 pg (27-31); MEAN CORPUSCULAR HGB CONC 33 g/dL (33-37); MEAN CORPUSCULAR VOLUME 78.5 fL (80-94); MONOCYTES # (AUTO) 0.4 K/uL (0.8-1.0); MONOCYTES % (AUTO) 9.4 % (1.7-9.3); NEUTROPHILS # (AUTO) 3.2 K/uL (1.8-7.7); NEUTROPHILS % (AUTO) 67.6 % (42.2-75.2); PLATELET COUNT (AUTO) 143 K/uL (140-450); RED BLOOD CELL COUNT(AUTO) 2.76 MIL/uL (4.20-6.10); WHITE BLOOD COUNT (AUTO) 4.7 K/uL (4.8-10.8)
--- NOTE | 2022-09-17 08:44 | NUR ---
DR DEGROOT AT BEDSIDE, MSE COMPLETED.
[2022-09-17 08:54] LABS: ALBUMIN 1.6 g/dL (3.4-5.0); ANION GAP 10.9 (8-16); CREATININE 1.4 mg/dL (0.6-1.3); POTASSIUM 4.9 mmol/L (3.5-5.1); TOTAL BILIRUBIN 0.8 mg/dL (0.0-1.0)
[2022-09-17] MEDS ORDERED: MORPHINE SULFATE 4 MG/ML SYR IVP ONE (09:05)
[2022-09-17] MEDS ORDERED: ONDANSETRON 4 MG/2 ML VIAL IVP ONE (09:05)
--- NOTE | 2022-09-17 12:00 | NUR ---
RECEIVED REPORT FROM ER NURSE AT 1150. PT ARRIVED TO MST UNIT @1200. PT IS AOX4, ON RM AIR, AMBULATORY, IV TO RIGHT AC 20G CLEAN AND INTACT - SALINE LOCK, PT ABDOMEN VERY DISTENDED (ASCITES), PT REPORTS PAIN IN ABDOMEN BUT TOLERABLE AT THIS TIME (GIVEN PAIN MED IN ER). CHIEF COMPLAINT: ABD PAIN/DISTENTION PT VITALS STABLE UPON ARRIVAL. ORIENTED PT TO ROOM, BATHROOM, BED MECHANICS, CALL LIGHT. BED IN LOWEST POSITION, 2 SIDE RAILS UP, CALL LIGHT PLACED WITHIN REACH.
--- NOTE | 2022-09-17 12:15 | NUR ---
Patient will be admitted to care of [facility]. Admited to MED-SURG. Will go to room 120. Belongings list completed. Report to
[2022-09-17 15:47] LABS: PROTHROMBIN TIME 11.8 secs (10.8-13.4)
[2022-09-17 16:00] VITALS: BP 109/61
--- NOTE | 2022-09-17 19:00 | NUR ---
ENDORSED PT TO NIGHTSHIFT NURSE FOR CONTINUITY OF CARE. PT STABLE, NO SIGNS OF DISTRESS, NO REPORTS OF PAIN. BED IN LOWEST POSITION, SIDE RAILS UP, CALL LIGHT WITHIN REACH.
--- NOTE | 2022-09-17 19:20 | NUR ---
RECEIVED REPORT FROM DAY SHIFT NURSE FOR CONTINUITY OF CARE. PT IS AWAKE, A&O X4, THAI SPEAKING BUT DOES UNDERSTAND SOME MOH[place]K. AMBULATORY AND CONTINENT. ON ROOM AIR WITH NO SIGNS OF RESPIRATORY DISTRESS NOTED. PT ABDOMEN VERY DISTENDED BUT REPORTS NO PAIN AT THIS TIME. CALL LIGHT WITHIN REACH, BED TO LOWEST POINT. WILL MAKE FREQUENT ROUNDS.
[2022-09-17 20:00] VITALS: BP 106/66
[2022-09-17] MEDS ORDERED: POTASSIUM CHLORIDE 10 MEQ TABER PO PRN (22:00)
[2022-09-17] MEDS ORDERED: DOCUSATE SODIUM 100 MG GELCAP PO PRN (22:00)
[2022-09-17] MEDS ORDERED: ZOLPIDEM 10 MG TAB PO PRN (22:00)
[2022-09-17] MEDS ORDERED: ONDANSETRON 4 MG/2 ML VIAL IVP PRN (22:00)
[2022-09-17] MEDS ORDERED: MORPHINE SULFATE 2 MG/ML SYR IVP PRN (22:00)
[2022-09-17] MEDS ORDERED: ACETAMINOPHEN 325 MG TAB PO PRN (22:00)
[2022-09-17] MEDS ORDERED: LORazepam 2 MG/ML VIAL IVP PRN (22:00)
--- NOTE | 2022-09-17 22:00 | NUR ---
PULLED OUT WRONG MEDICATION
--- NOTE | 2022-09-17 22:20 | NUR ---
PT RECEIVED FIRST DOSE OF ROCEPHIN. TOLERATED WELL, NO REACTIONS PRESENT. WILL CONTINUE TO MONITOR.
[2022-09-17] MEDS ORDERED: ceFAZolin 1,000 MG VIAL ONE (22:22)
[2022-09-17] MEDS ORDERED: cefTRIAXone 1,000 MG VIAL ONE (22:23)
--- NOTE | 2022-09-18 02:08 | NUR ---
PT ASLEEP AT THIS TIME. NO SIGNS OF ACUTE DISTRESS NOTED. CHEST RISE AND FALL NOTED. WILL CONTINUE TO MONITOR
[2022-09-18 04:41] VITALS: BP 101/61
[2022-09-18 06:10] LABS: BASOPHILS # (AUTO) 0.1 K/uL (0.00-0.22); EOSINOPHILS # (AUTO) 0.3 K/uL (0-0.4); EOSINOPHILS % (AUTO) 5.6 % (0.0-4.0); HEMATOCRIT 20.9 % (36-52); LYMPHOCYTES # (AUTO) 1.5 K/uL (2.0-11.5); MEAN CORPUSCULAR HEMOGLOBIN 26 pg (27-31); MEAN CORPUSCULAR HGB CONC 33 g/dL (33-37); MEAN CORPUSCULAR VOLUME 78.4 fL (80-94); MONOCYTES # (AUTO) 0.5 K/uL (0.8-1.0); MONOCYTES % (AUTO) 9.3 % (1.7-9.3); NEUTROPHILS # (AUTO) 3.3 K/uL (1.8-7.7); NEUTROPHILS % (AUTO) 58.1 % (42.2-75.2); PLATELET COUNT (AUTO) 142 K/uL (140-450); RED BLOOD CELL COUNT(AUTO) 2.66 MIL/uL (4.20-6.10); RED CELL DISTRIBUTION WIDTH 16.8 % (11.6-13.7); WHITE BLOOD COUNT (AUTO) 5.7 K/uL (4.8-10.8)
[2022-09-18 06:12] LABS: HEMOGLOBIN 6.8 g/dL (12.0-18.0)
[2022-09-18 06:14] LABS: ANION GAP 11.4 (8-16); CARBON DIOXIDE 21.9 mmol/L (21-32); CREATININE 1.3 mg/dL (0.6-1.3); POTASSIUM 6.3 mmol/L (3.5-5.1)
--- NOTE | 2022-09-18 09:15 | NUR ---
PATIENT HAS BEEN SCREENED AND CATEGORIZED LOW NUTRITION RISK. PATIENT WILL BE SEEN WITHIN 7 DAYS OF ADMISSION. 09/24/[address]
[2022-09-18] MEDS ORDERED: LIDOCAINE 1% 500 MG/ 50 ML VIAL INJ SCH (10:50)
--- NOTE | 2022-09-18 11:30 | NUR ---
PT HAVING PARACENTESIS DONE AT BEDSIDE (@1130) PRE PROCEDURE VITALS STABLE (TEMP:98.7, PULSE:62, BP: 110/64, RR: 16, O2: 99)
--- NOTE | 2022-09-18 12:05 | NUR ---
PT DONE WITH PARACENTESIS. 8L OUT. PT VITALS STABLE.
[2022-09-18 12:41] VITALS: BP 107/65
--- NOTE | 2022-09-18 13:00 | NUR ---
PT NEED BLOOD TRANSFUSION, HGB: 6.8L. MD INFORMED, BLOOD TRANSFUSION ORDERED. PT INFORMED, CONSENT OBTAINED.
--- NOTE | 2022-09-18 16:35 | NUR ---
BLOOD TRANSFUSION START @1630 PRE-TRANSFUSION VITALS, TEMP: 98.2, PULSE: 89, RR: 16, BP: 93/56, NO PAIN 15-MIN VIBHA VITALS, TEMP: 98.3, PULSE: 88, RR: 16, BP: 96/55, NO PAIN PT IS STABLE, REPORTS NO PAIN, WILL CONTINUE WITH TRANSFUSION.
--- NOTE | 2022-09-18 19:30 | NUR ---
RECEIVED REPORT FROM DAY SHIFT NURSE DENNIS FOR CONTINUITY OF CARE. PT AWAKE IN BED. BLOOD TRANSFUSION ON GOING. RESPIRATIONS EVEN AND UNLABORED ON RA. NO DISTRESS NOTED. DENIES PAIN. POC DISCUSSED WITH PT AND RN LITZY. CALL LIGHT WITHIN REACH. SAFETY PRECAUTIONS IN PLACE.
[2022-09-18 20:00] VITALS: BP 106/61
--- NOTE | 2022-09-18 20:23 | NUR ---
INFORMED DR VIVAS ABOUT PT'S POTASSIUM 6.3. AWAITING FOR ORDERS.
--- NOTE | 2022-09-18 20:25 | NUR ---
BLOOD TRANSFUSION DONE. V/S 106/61, 82,18,98.2, 99%. NO BLOOD TRANSFUSION REACTION NOTED.
--- NOTE | 2022-09-18 21:34 | NUR ---
ADMINISTERED DUE MED. PT TOLERATED WELL.
[2022-09-18 22:09] LABS: HEMATOCRIT 24.9 % (36-52); HEMOGLOBIN 8.3 g/dL (12.0-18.0)
--- NOTE | 2022-09-19 00:53 | NUR ---
PT COMPLAINING OF DIFFICULTY DEFECATING. PT STATED HIS LAST BM WAS ONE WEEK AGO. PRN MED FOR CONSTIPATION GIVEN.
[2022-09-19 04:00] VITALS: BP 101/66
--- NOTE | 2022-09-19 04:22 | NUR ---
PT REQUESTED FOR SNACKS. SNACKS GIVEN. NO COMPLAINTS OF PAIN. BREATHING EVEN AND UNLABORED. NO DISTRESS NOTED. SAFETY PRECAUTIONS IN PLACE.
[2022-09-19 05:57] LABS: BASOPHILS % (AUTO) 0.7 % (0.0-2.0); EOSINOPHILS # (AUTO) 0.2 K/uL (0-0.4); EOSINOPHILS % (AUTO) 3.3 % (0.0-4.0); HEMATOCRIT 26.2 % (36-52); HEMOGLOBIN 8.6 g/dL (12.0-18.0); LYMPHOCYTES # (AUTO) 1.2 K/uL (2.0-11.5); LYMPHOCYTES % (AUTO) 19.2 % (20.5-51.1); MEAN CORPUSCULAR HEMOGLOBIN 26 pg (27-31); MEAN CORPUSCULAR HGB CONC 33 g/dL (33-37); MONOCYTES # (AUTO) 0.5 K/uL (0.8-1.0); MONOCYTES % (AUTO) 7.7 % (1.7-9.3); NEUTROPHILS # (AUTO) 4.2 K/uL (1.8-7.7); NEUTROPHILS % (AUTO) 69.1 % (42.2-75.2); PLATELET COUNT (AUTO) 132 K/uL (140-450); RED BLOOD CELL COUNT(AUTO) 3.31 MIL/uL (4.20-6.10); RED CELL DISTRIBUTION WIDTH 16.4 % (11.6-13.7)
[2022-09-19 07:13] LABS: ANION GAP 13.1 (8-16); CARBON DIOXIDE 20.5 mmol/L (21-32); CREATININE 1.2 mg/dL (0.6-1.3); POTASSIUM 5.6 mmol/L (3.5-5.1)
--- NOTE | 2022-09-19 07:23 | NUR ---
GAVE BEDSIDE REPORT TO BROCK HYATT. PT IS STABLE.
[2022-09-19 07:40] VITALS: BP 104/60
[2022-09-19 11:26] VITALS: BP 101/62
--- NOTE | 2022-09-19 13:47 | NUR ---
PATIENT DISCHARGE TO HOME WITH A COPY OF DISCHARGE INSTRUCTIONS AND ALL BELONGINGS . INTACT 20 GAUGE INTRAVENOUS CATHETER TIP REMOVAL FROM RIGHT ANTECUBITAL SPACE. PATIENT IDENTIFICATION BRACELET REMOVAL. PATIENT TRANSPORT TO HOME VIA BROTHER'S PRIVATE AUTOMOBILE.
== END 2022-09-19 13:05 | disposition home or self-care (01) | DRG 280 ==
LOC: MED 07:25 → MTU 11:00 → OBSVTOIN 09-18 11:13
PROVIDERS: ADMIT Family Medicine; ATTEND Family Medicine
PROC: 0W9G3ZZ Drainage of Peritoneal Cavity, Percutaneous Approach (ICD-10-PCS; principal; 2022-09-18)
PROC: 30233N1 Transfusion of Nonautologous Red Blood Cells into Peripheral Vein, Percutaneous Approach (ICD-10-PCS; 2022-09-18)
DX: K70.31 Alcoholic cirrhosis of liver with ascites (principal); E43 Unspecified severe protein-calorie malnutrition; E83.51 Hypocalcemia; E87.1 Hypo-osmolality and hyponatremia; D64.9 Anemia, unspecified; Z20.822 Contact with and (suspected) exposure to COVID-19; F10.10 Alcohol abuse, uncomplicated; D72.819 Decreased white blood cell count, unspecified; R14.0 Abdominal distension (gaseous); Z88.6 Allergy status to analgesic agent; Z79.899 Other long term (current) drug therapy; Y90.9 Presence of alcohol in blood, level not specified; Z68.30 Body mass index [BMI] 30.0-30.9, adult; E66.9 Obesity, unspecified
CPT/HCPCS: 49083; 96374; 96375; 99285; G0378; 36415; 36430; 76705; 80048; 80053; 83036; 83605; 83690; 83735; 85018; 85025; 85610; 85730; 86886; 86900; 86901; 86920; 87040; 87081; J0690; J0696; J1644; J2001; J2270; J2405; J7060; P9016; Q0092

== ENCOUNTER 2022-10-05 07:08 | Emergency (ER) | payer OTHER ==
[~2022-10-05] VITALS: Ht 162.6 cm; Wt 78.9 kg
[2022-10-05 07:24] VITALS: BP 122/79
--- NOTE | 2022-10-05 07:28 | NUR ---
AMB. TO BED 11 W NO DIFFICULTY. NO DISTRESS
--- NOTE | 2022-10-05 07:48 | NUR ---
PT C/O ABD PAIN 8/10 X 5DYS, HX OF PSORISIS. PT RESTING IN BED. NO ACUTE DISTRESS.
--- NOTE | 2022-10-05 07:54 | NUR ---
DR. CUMMINGS AT BEDSIDE.
--- NOTE | 2022-10-05 08:40 | NUR ---
DR. CUMMINGS AT BEDSIDE PERFORMING PARACENTESIS.
--- NOTE | 2022-10-05 08:57 | NUR ---
ONE LITER COMPLETED, CHANGED CANISTER PER SECOND LITER. PT TOLERATED WELL. VITALS STABLE.
--- NOTE | 2022-10-05 10:53 | NUR ---
NINE LITERS COMPLETED. PT TOLERATED WELL. VITALS STABLE.
[2022-10-05 11:18] VITALS: BP 109/65
== END 2022-10-05 11:19 | disposition home or self-care (01) ==
LOC: MED 07:08
DX: R18.8 Other ascites (principal); Z79.899 Other long term (current) drug therapy; Z88.6 Allergy status to analgesic agent
CPT/HCPCS: 49083; 99285

== ENCOUNTER 2022-10-10 11:57 | Emergency (ER) | payer OTHER ==
[~2022-10-10] VITALS: Ht 162.6 cm; Wt 77.1 kg
[2022-10-10 12:13] VITALS: BP 132/85
--- NOTE | 2022-10-10 12:47 | NUR ---
52 YO MALE BIBS PATIENT C/O ASCITES WORSENING. STATES HE HAD PARACENTESIS 1X WEEK AGO. STATES THE FLUID BUILT UP FAST THIS TIME ARROUND. HX OF LIVER CIRRHOSIS. ALLERGIES TO IBUPROFEN
--- NOTE | 2022-10-10 12:54 | NUR ---
PROVIDED WATER, ANNIA BELLO
[2022-10-10 13:30] LABS: BASOPHILS # (AUTO) 0.1 K/uL (0.00-0.22); EOSINOPHILS # (AUTO) 0.2 K/uL (0-0.4); EOSINOPHILS % (AUTO) 4.2 % (0.0-4.0); HEMATOCRIT 22.7 % (36-52); HEMOGLOBIN 7.4 g/dL (12.0-18.0); LYMPHOCYTES # (AUTO) 1.1 K/uL (2.0-11.5); LYMPHOCYTES % (AUTO) 20.8 % (20.5-51.1); MEAN CORPUSCULAR HEMOGLOBIN 25 pg (27-31); MEAN CORPUSCULAR HGB CONC 32 g/dL (33-37); MEAN CORPUSCULAR VOLUME 78.2 fL (80-94); MONOCYTES # (AUTO) 0.7 K/uL (0.8-1.0); MONOCYTES % (AUTO) 12.4 % (1.7-9.3); NEUTROPHILS # (AUTO) 3.3 K/uL (1.8-7.7); NEUTROPHILS % (AUTO) 61.6 % (42.2-75.2); PLATELET COUNT (AUTO) 199 K/uL (140-450); WHITE BLOOD COUNT (AUTO) 5.3 K/uL (4.8-10.8)
[2022-10-10 13:46] LABS: PROTHROMBIN TIME 12.1 secs (10.8-13.4)
[2022-10-10 14:12] LABS: ALBUMIN 1.4 g/dL (3.4-5.0); ANION GAP 12.1 (8-16); CREATININE 1.1 mg/dL (0.6-1.3); POTASSIUM 4.1 mmol/L (3.5-5.1); TOTAL BILIRUBIN 0.5 mg/dL (0.0-1.0)
[2022-10-10] MEDS ORDERED: LIDOCAINE 1% 500 MG/ 50 ML VIAL INJ ONE (15:00)
--- NOTE | 2022-10-10 15:06 | NUR ---
CONSENT OBTAINED FOR PARACENTESIS.
[2022-10-10] MEDS ORDERED: LIDOCAINE MPF 1% 5 ML ONE (15:08)
[2022-10-10] MEDS ORDERED: LIDOCAINE MPF 1% 10 MG/ML VIAL INJ ONE (15:10)
[2022-10-10 15:18] LABS: APPEARANCE,URINE CLEAR (CLEAR); BILIRUBIN,URINE NEGATIVE (NEGATIVE); BLOOD, URINE TRACE-I (NEGATIVE); COLOR,URINE YELLOW (YELLOW); LEUKOCYTE ESTERASE ,URINE NEGATIVE (NEGATIVE); NITRITE, URINE NEGATIVE (NEGATIVE); UGLUCOSE NEGATIVE (NEGATIVE)
[2022-10-10 15:32] LABS: RBC,URINE 0-5 /HPF (0-5); WBC,URINE NONE SEEN /HPF (0-5)
--- NOTE | 2022-10-10 15:50 | NUR ---
PARACENTESIS DONE BY DR FERNANDEZ. SITE DRAINING NORMALLY. PT VITALS STABLE AT THIS TIME
[2022-10-10] MEDS ORDERED: MORPHINE SULFATE 4 MG/ML SYR IVP ONE (16:05)
--- NOTE | 2022-10-10 17:20 | NUR ---
PT SWABBED FOR COVID AND SENT TO LAB
[2022-10-10 17:36] LABS: APPEARANCE,SPUN,BODY FLUID CLEAR (CLEAR); APPEARANCE,UNSPUN,BODY FLUID CLEAR (CLEAR); COLOR,BODY FLUID LT YELLOW (LT YELLOW); RBC, BODY FLUID 0 /cu. mm.; SPECIMENTYPE,BODY FLUID PARACENTESIS; TOTAL VOLUME,BODY FLUID 75 mL; WBC, BODY FLUID 0 /cu. mm.
[2022-10-10 17:42] LABS: GLUCOSE,BODY FLUID 116 mg/dL
[2022-10-10 17:47] VITALS: BP 107/69
== END 2022-10-10 18:45 | disposition home or self-care (01) ==
LOC: MED 11:57
DX: R18.8 Other ascites (principal); Z20.822 Contact with and (suspected) exposure to COVID-19; K74.60 Unspecified cirrhosis of liver; Z79.899 Other long term (current) drug therapy; Z98.890 Other specified postprocedural states
CPT/HCPCS: 36415; 49083; 80053; 81001; 82945; 83605; 83690; 84157; 85025; 85610; 85730; 87040; 87070; 87205; 87426; 89051; 96374; 99285; J2001; J2270

== ENCOUNTER 2022-10-15 07:10 | Emergency (ER) | payer OTHER ==
[~2022-10-15] VITALS: Ht 162.6 cm; Wt 79.8 kg
[2022-10-15 07:21] VITALS: BP 129/76
--- NOTE | 2022-10-15 08:10 | NUR ---
pt already seen by md, will get paracentesis, signed consent
[2022-10-15 08:22] LABS: BASOPHILS # (AUTO) 0.1 K/uL (0.00-0.22); BASOPHILS % (AUTO) 0.9 % (0.0-2.0); EOSINOPHILS # (AUTO) 0.4 K/uL (0-0.4); EOSINOPHILS % (AUTO) 5.8 % (0.0-4.0); HEMATOCRIT 26.1 % (36-52); HEMOGLOBIN 8.3 g/dL (12.0-18.0); LYMPHOCYTES # (AUTO) 1.2 K/uL (2.0-11.5); LYMPHOCYTES % (AUTO) 19.5 % (20.5-51.1); MEAN CORPUSCULAR HEMOGLOBIN 25 pg (27-31); MEAN CORPUSCULAR HGB CONC 32 g/dL (33-37); MEAN CORPUSCULAR VOLUME 77.7 fL (80-94); MONOCYTES # (AUTO) 0.4 K/uL (0.8-1.0); MONOCYTES % (AUTO) 7.2 % (1.7-9.3); NEUTROPHILS # (AUTO) 4.1 K/uL (1.8-7.7); NEUTROPHILS % (AUTO) 66.6 % (42.2-75.2); PLATELET COUNT (AUTO) 215 K/uL (140-450); RED BLOOD CELL COUNT(AUTO) 3.35 MIL/uL (4.20-6.10); RED CELL DISTRIBUTION WIDTH 17.6 % (11.6-13.7); WHITE BLOOD COUNT (AUTO) 6.1 K/uL (4.8-10.8)
[2022-10-15 08:46] LABS: ALBUMIN 1.5 g/dL (3.4-5.0); CARBON DIOXIDE 22.8 mmol/L (21-32); CREATININE 1.3 mg/dL (0.6-1.3); POTASSIUM 3.8 mmol/L (3.5-5.1); TOTAL BILIRUBIN 0.6 mg/dL (0.0-1.0)
[2022-10-15 09:08] LABS: PROTHROMBIN TIME 11.4 secs (10.8-13.4)
--- NOTE | 2022-10-15 10:18 | NUR ---
had paracentesis done, denies any pain, sr on cm, o2 sat 98 % ra, sr up times 2
[2022-10-15 10:29] VITALS: BP 112/71
== END 2022-10-15 10:29 | disposition home or self-care (01) ==
LOC: MED 07:10
DX: R18.8 Other ascites (principal); K74.60 Unspecified cirrhosis of liver; Z88.5 Allergy status to narcotic agent; Z79.899 Other long term (current) drug therapy
CPT/HCPCS: 36415; 49083; 80053; 83690; 85025; 85610; 85730; 99285

== ENCOUNTER 2022-10-20 20:27 | Emergency (ER) | payer OTHER ==
[~2022-10-20] VITALS: Ht 162.6 cm; Wt 77.1 kg
[2022-10-20 20:53] VITALS: BP 121/77
--- NOTE | 2022-10-20 21:06 | NUR ---
PT TO ROOM 4
[2022-10-20 21:25] LABS: BASOPHILS # (AUTO) 0.1 K/uL (0.00-0.22); BASOPHILS % (AUTO) 0.9 % (0.0-2.0); EOSINOPHILS # (AUTO) 0.4 K/uL (0-0.4); EOSINOPHILS % (AUTO) 5.4 % (0.0-4.0); HEMATOCRIT 23.7 % (36-52); HEMOGLOBIN 7.7 g/dL (12.0-18.0); LYMPHOCYTES # (AUTO) 1.1 K/uL (2.0-11.5); LYMPHOCYTES % (AUTO) 14.9 % (20.5-51.1); MEAN CORPUSCULAR HEMOGLOBIN 25 pg (27-31); MEAN CORPUSCULAR HGB CONC 32 g/dL (33-37); MEAN CORPUSCULAR VOLUME 76.3 fL (80-94); MONOCYTES # (AUTO) 0.6 K/uL (0.8-1.0); MONOCYTES % (AUTO) 7.6 % (1.7-9.3); NEUTROPHILS # (AUTO) 5.3 K/uL (1.8-7.7); NEUTROPHILS % (AUTO) 71.2 % (42.2-75.2); PLATELET COUNT (AUTO) 264 K/uL (140-450); RED BLOOD CELL COUNT(AUTO) 3.11 MIL/uL (4.20-6.10); RED CELL DISTRIBUTION WIDTH 17.6 % (11.6-13.7); WHITE BLOOD COUNT (AUTO) 7.4 K/uL (4.8-10.8)
[2022-10-20 21:41] LABS: PROTHROMBIN TIME 11.5 secs (10.8-13.4)
[2022-10-20 21:42] LABS: ALBUMIN 1.4 g/dL (3.4-5.0); ANION GAP 10.5 (8-16); CARBON DIOXIDE 23.8 mmol/L (21-32); CREATININE 1.4 mg/dL (0.6-1.3); POTASSIUM 4.3 mmol/L (3.5-5.1); TOTAL BILIRUBIN 0.3 mg/dL (0.0-1.0)
[2022-10-20] MEDS ORDERED: ALBUMIN HUMAN 25% 100 ML IV ONE (21:50)
--- NOTE | 2022-10-20 21:59 | NUR ---
consent signed for paracentesis and placed in the chart.
--- NOTE | 2022-10-20 22:17 | NUR ---
REINA MEZA at bedside for procedure.
--- NOTE | 2022-10-20 23:32 | NUR ---
Approximately 11.2 L of fluid output from paracentesis procedure. Drainage is non-purulent, no odor, yellow in color, and noted no output of blood. ER MD aware and per MD no send out for culture or analysis.
--- NOTE | 2022-10-21 00:31 | NUR ---
IV removed, catheter intact and site benign. Applied folded 4x4 gauze and tape to stop bleeding.
--- NOTE | 2022-10-21 00:35 | NUR ---
called patient's brother to pick patient up. was told will be here in 30mins. patient made aware
[2022-10-21 00:37] VITALS: BP 104/60
--- NOTE | 2022-10-21 00:37 | NUR ---
Patient discharged. Written and verbal after care instructions given and explained. Patient verbalized understanding. Ambulatory with steady gait. ID band removed. All questions addressed prior to discharge. Advised to follow up with PMD.
== END 2022-10-21 00:37 | disposition home or self-care (01) ==
LOC: MED 20:27
DX: R18.8 Other ascites (principal); Z79.899 Other long term (current) drug therapy; Z88.6 Allergy status to analgesic agent
CPT/HCPCS: 36415; 49083; 80053; 85025; 85610; 96365; 96366; 99285; P9046

== ENCOUNTER 2022-10-25 19:56 | Emergency (ER) | payer OTHER ==
[~2022-10-25] VITALS: Ht 162.6 cm; Wt 72.6 kg
[2022-10-25 20:00] VITALS: BP 115/70
--- NOTE | 2022-10-25 20:00 | NUR ---
TO BED AMBULATORY
[2022-10-25 21:39] LABS: BASOPHILS # (AUTO) 0.1 K/uL (0.00-0.22); BASOPHILS % (AUTO) 1.2 % (0.0-2.0); EOSINOPHILS # (AUTO) 0.4 K/uL (0-0.4); HEMATOCRIT 23.1 % (36-52); HEMOGLOBIN 7.3 g/dL (12.0-18.0); LYMPHOCYTES # (AUTO) 1.2 K/uL (2.0-11.5); LYMPHOCYTES % (AUTO) 16.7 % (20.5-51.1); MEAN CORPUSCULAR HEMOGLOBIN 24 pg (27-31); MEAN CORPUSCULAR HGB CONC 32 g/dL (33-37); MEAN CORPUSCULAR VOLUME 75.7 fL (80-94); MONOCYTES # (AUTO) 0.6 K/uL (0.8-1.0); MONOCYTES % (AUTO) 9.1 % (1.7-9.3); NEUTROPHILS # (AUTO) 4.6 K/uL (1.8-7.7); PLATELET COUNT (AUTO) 263 K/uL (140-450); RED BLOOD CELL COUNT(AUTO) 3.05 MIL/uL (4.20-6.10); RED CELL DISTRIBUTION WIDTH 17.3 % (11.6-13.7); WHITE BLOOD COUNT (AUTO) 6.9 K/uL (4.8-10.8)
--- NOTE | 2022-10-25 21:47 | NUR ---
PT TO BED 11
[2022-10-25 21:50] LABS: PROTHROMBIN TIME 12.1 secs (10.8-13.4)
[2022-10-25 21:54] LABS: ALBUMIN 1.6 g/dL (3.4-5.0); ANION GAP 10.8 (8-16); CARBON DIOXIDE 23.7 mmol/L (21-32); CREATININE 1.5 mg/dL (0.6-1.3); POTASSIUM 4.5 mmol/L (3.5-5.1); TOTAL BILIRUBIN 0.4 mg/dL (0.0-1.0)
--- NOTE | 2022-10-25 21:57 | NUR ---
Patient resting in bed, A/Ox4, chest rise and fall symmetrical, no s/s of distress, on monitor.
--- NOTE | 2022-10-25 22:02 | NUR ---
ER Physician at bedside assessing patient.
--- NOTE | 2022-10-25 23:00 | NUR ---
Dr. Palm starting Paracentesis setup.
--- NOTE | 2022-10-25 23:48 | NUR ---
Dr. Palm finished Paracentesis setup.
--- NOTE | 2022-10-25 23:50 | NUR ---
Starting draining procedure. Patient tolerating procedure, no c/o pain or s/s of distress. Patient verbalizes pain relief.
--- NOTE | 2022-10-26 00:02 | NUR ---
Starting draining procedure. Patient tolerating procedure, no c/o pain or s/s of distress. Patient verbalizes pain relief. Addendum: 10/26/22 at 0210 by [email or web address] Continuing draining procedure. Patient tolerating procedure, no c/o pain or s/s of distress. Patient verbalizes pain relief.
--- NOTE | 2022-10-26 00:18 | NUR ---
Patient resting in bed, A/Ox4, chest rise and fall symmetrical, no s/s of distress, on monitor. Dr. Palm at bedside performing procedure.
--- NOTE | 2022-10-26 01:00 | NUR ---
Starting draining procedure. Patient tolerating procedure, no c/o pain or s/s of distress. Patient verbalizes pain relief. Addendum: 10/26/22 at 0210 by [email or web address] Continuing draining procedure. Patient tolerating procedure, no c/o pain or s/s of distress. Patient verbalizes pain relief.
--- NOTE | 2022-10-26 01:45 | NUR ---
Continuing draining procedure. Patient tolerating procedure, no c/o pain or s/s of distress. Patient verbalizes pain relief.
--- NOTE | 2022-10-26 01:50 | NUR ---
Draining procedure completed. Patient tolerated procedure, no c/o pain or s/s of distress. Patient verbalizes pain relief.
[2022-10-26 02:17] VITALS: BP 100/64
== END 2022-10-26 02:16 | disposition home or self-care (01) ==
LOC: MED 19:56
DX: R18.8 Other ascites (principal); K74.60 Unspecified cirrhosis of liver; D64.9 Anemia, unspecified; Z88.8 Allergy status to other drugs, medicaments and biological substances; Z79.899 Other long term (current) drug therapy
CPT/HCPCS: 36415; 49083; 80053; 83690; 85025; 85610; 99285

== ENCOUNTER 2022-10-30 09:56 | Emergency (ER) | payer OTHER ==
[~2022-10-30] VITALS: Ht 162.6 cm; Wt 72.6 kg
[2022-10-30 11:00] VITALS: BP 109/70
[2022-10-30 11:35] LABS: BASOPHILS # (AUTO) 0.1 K/uL (0.00-0.22); BASOPHILS % (AUTO) 1.2 % (0.0-2.0); EOSINOPHILS # (AUTO) 0.4 K/uL (0-0.4); EOSINOPHILS % (AUTO) 7.4 % (0.0-4.0); HEMATOCRIT 23.8 % (36-52); HEMOGLOBIN 7.5 g/dL (12.0-18.0); LYMPHOCYTES # (AUTO) 1.1 K/uL (2.0-11.5); LYMPHOCYTES % (AUTO) 17.9 % (20.5-51.1); MEAN CORPUSCULAR HEMOGLOBIN 24 pg (27-31); MEAN CORPUSCULAR HGB CONC 32 g/dL (33-37); MEAN CORPUSCULAR VOLUME 74.9 fL (80-94); MONOCYTES # (AUTO) 0.6 K/uL (0.8-1.0); MONOCYTES % (AUTO) 9.7 % (1.7-9.3); NEUTROPHILS # (AUTO) 3.9 K/uL (1.8-7.7); NEUTROPHILS % (AUTO) 63.8 % (42.2-75.2); PLATELET COUNT (AUTO) 250 K/uL (140-450); RED BLOOD CELL COUNT(AUTO) 3.17 MIL/uL (4.20-6.10); RED CELL DISTRIBUTION WIDTH 17.2 % (11.6-13.7); WHITE BLOOD COUNT (AUTO) 6.1 K/uL (4.8-10.8)
[2022-10-30 11:53] LABS: PROTHROMBIN TIME 11.9 secs (10.8-13.4)
[2022-10-30 11:56] LABS: ALBUMIN 1.5 g/dL (3.4-5.0); ANION GAP 11.1 (8-16); CARBON DIOXIDE 22.7 mmol/L (21-32); CREATININE 1.5 mg/dL (0.6-1.3); POTASSIUM 3.8 mmol/L (3.5-5.1); TOTAL BILIRUBIN 0.5 mg/dL (0.0-1.0)
--- NOTE | 2022-10-30 12:42 | NUR ---
PT AMBULATED TO BED 5
--- NOTE | 2022-10-30 12:45 | NUR ---
52YO MALE PT C/O ABD PRESSURED PAIN AND DISTENTION X5DAYS. PAIN AT MOST ON MOVEMENT. REPORTS ONSET W/ N/V-blood AND SOB. PT W/ HX ASCITES AND RECENTLY SEEN IN ER ON 10/25 FOR S/S. STATES PARACENTESIS COMPLETION W/ 10L COLLECTED DURING VISIT. ABD FIRM, DISTENDED AND TENDER. DENIES V, CHEST PAIN, OR TAKING MEDICATION. 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 O2 100% RA. RESPIRATIONS EVEN AND UNLABORED. HOB POSITIONED PER COMFORT HX: ASCITES, CIRRHOSIS ALLEGIES: IBUPROFEN
--- NOTE | 2022-10-30 17:41 | NUR ---
1 LITER OF AMNIOCENTHESIS WALKED TO LAB PER DR LOONEY VERBAL ORDER.
--- NOTE | 2022-10-30 17:59 | NUR ---
HOUSE SUP CALLED TO REQUEST PARACENTHESIS CONTAINERS.
[2022-10-30] MEDS ORDERED: ALBUMIN HUMAN 25% 100 ML IV ONE (18:20)
--- NOTE | 2022-10-30 18:52 | NUR ---
The patient's care was reviewed and supervised by ELIGIO FELICIANO RN.
[2022-10-30 18:56] LABS: APPEARANCE,SPUN,BODY FLUID CLEAR (CLEAR); APPEARANCE,UNSPUN,BODY FLUID CLEAR (CLEAR); COLOR,BODY FLUID LT YELLOW (LT YELLOW); SPECIMENTYPE,BODY FLUID PARACENTESIS
[2022-10-30 18:57] LABS: TOTAL VOLUME,BODY FLUID 1150 mL; WBC, BODY FLUID 7 /cu. mm.
[2022-10-30 18:59] LABS: GLUCOSE,BODY FLUID 107 mg/dL; RBC, BODY FLUID 17 /cu. mm.
[2022-10-30 19:00] VITALS: BP 111/67
--- NOTE | 2022-10-30 19:00 | NUR ---
ALBUMIN IV RATE INCREASED TO INFUSE IN [address] NAVARRO
--- NOTE | 2022-10-30 20:26 | NUR ---
The patient's care was reviewed and supervised by Federica Banda RN.
== END 2022-10-30 20:10 | disposition home or self-care (01) ==
LOC: MED 09:56
DX: K70.31 Alcoholic cirrhosis of liver with ascites (principal); Z87.448 Personal history of other diseases of urinary system; Z79.899 Other long term (current) drug therapy; Z88.6 Allergy status to analgesic agent
CPT/HCPCS: 36415; 49083; 80053; 82945; 84157; 85025; 85610; 85730; 87070; 89051; 96365; 96366; 99285; P9046

== ENCOUNTER 2022-11-05 09:19 | Emergency (ER) | payer OTHER ==
[~2022-11-05] VITALS: Ht 162.6 cm; Wt 78.5 kg
[2022-11-05 09:21] VITALS: BP 126/72
--- NOTE | 2022-11-05 10:40 | NUR ---
Patient being evaluated by physician at bedside.
--- NOTE | 2022-11-05 11:00 | NUR ---
ASSISTED MD TO PERFORM PARACENTESIS
--- NOTE | 2022-11-05 11:30 | NUR ---
TOLERATING PARACENTESIS, VSS, CLEAR GLORIA COLORED FLUID DRAINING.
--- NOTE | 2022-11-05 12:08 | NUR ---
11 L OF PERITONEAL FLUID DRAINED, , LORENZO WELL, ABDOMEN SOFTER, FLAT , MD AT BS TO [facility]EE[facility] PT, CATH DCD BY MD , NO BLEEDING , DRESSING APPLIED , VSS
[2022-11-05 12:59] VITALS: BP 110/52
--- NOTE | 2022-11-05 13:01 | NUR ---
Patient discharged with v/s stable. Written and verbal after care instructions given and explained. Patient verbalized understanding. Wheel Chair Assisted with . All questions addressed prior to discharge. Advised to follow up with PMD.
== END 2022-11-05 13:01 | disposition home or self-care (01) ==
LOC: MED 09:19
DX: K74.69 Other cirrhosis of liver (principal); R18.8 Other ascites; N18.9 Chronic kidney disease, unspecified; Z79.899 Other long term (current) drug therapy
CPT/HCPCS: 49083; 99285

== ENCOUNTER 2022-11-12 06:56 | Emergency (ER) | payer OTHER ==
[~2022-11-12] VITALS: Ht 162.6 cm; Wt 77.1 kg
[2022-11-12 07:16] VITALS: BP 110/74
--- NOTE | 2022-11-12 07:22 | NUR ---
PT AMB TO BED 4
--- NOTE | 2022-11-12 07:46 | NUR ---
52YO M PRESENTS W/ABD DISTENTION REQUESTING FOR PARACENTESIS, PT FREQUENTLY SEEN IN ER WEEKLY, PT STATES INSURANCE WILL APPOVE FOR PCP IN DECEMBER. NAD. SAFETY MAINTAINED. HX: LIVER CIRRHOSIS
--- NOTE | 2022-11-12 07:54 | NUR ---
paracentesis procedure set up: verbal order from md greenberg
--- NOTE | 2022-11-12 08:18 | NUR ---
MD CUMMINGS AT BEDSIDE FOR EVALUATION
[2022-11-12] MEDS ORDERED: ONDANSETRON 4 MG ODT PO ONE (08:20)
--- NOTE | 2022-11-12 08:58 | NUR ---
DR CUMMINGS AT BEDSIDE PERFORMING PARACENTESIS.
--- NOTE | 2022-11-12 10:52 | NUR ---
The patient's care was reviewed and supervised by [facility], RN.
[2022-11-12 10:54] VITALS: BP 110/56
== END 2022-11-12 10:52 | disposition home or self-care (01) ==
LOC: MED 06:56
DX: R18.8 Other ascites (principal); Z87.448 Personal history of other diseases of urinary system; Z79.899 Other long term (current) drug therapy; Z88.6 Allergy status to analgesic agent
CPT/HCPCS: 49083; 99285; Q0162

== ENCOUNTER 2022-11-18 19:01 | Emergency (ER) | payer OTHER ==
[~2022-11-18] VITALS: Ht 162.6 cm; Wt 74.4 kg
[2022-11-18 19:06] VITALS: BP 117/75
--- NOTE | 2022-11-18 19:10 | NUR ---
MD Tinoco at bedside examining pt.
--- NOTE | 2022-11-18 19:37 | NUR ---
Paracentesis performed by MD Tinoco. Pt tolerated procedure well. Pt being monitored at this time. Connected to monitor; VS stabe at this time.
[2022-11-18] MEDS ORDERED: ACETAMINOPHEN EXTRA STRENGTH 500 MG TAB PO ONE (19:40)
--- NOTE | 2022-11-18 20:39 | NUR ---
Catheter draining ascitic fluid to bottle. Patient tolerating procedure well. Patient being monitored at this time. Connected to monitor; VS stable at this time.
--- NOTE | 2022-11-18 22:15 | NUR ---
Catheter removed by Dr. Zaidi. 10 bottles of ascitic fluid drained. Patient tolerated procedure well. Patient being monitored at this time. Connected to monitor; VS stable at this time.
[2022-11-18 22:50] VITALS: BP 101/59
== END 2022-11-18 22:50 | disposition home or self-care (01) ==
LOC: MED 19:01
DX: R18.8 Other ascites (principal); R11.0 Nausea; Z88.6 Allergy status to analgesic agent; Z79.899 Other long term (current) drug therapy
CPT/HCPCS: 49083; 99285

== ENCOUNTER 2022-11-25 21:00 | Emergency (ER) | payer OTHER ==
[~2022-11-25] VITALS: Ht 162.6 cm; Wt 74.5 kg
[2022-11-25 21:10] VITALS: BP 113/75
--- NOTE | 2022-11-25 21:13 | NUR ---
TO LOBBY A/W BED AMBULATORY
--- NOTE | 2022-11-25 21:57 | NUR ---
PT TO BED #11
--- NOTE | 2022-11-25 22:00 | NUR ---
RESTING ON BED. NOT IN DISTRESS, W/ PAIN AT ABDOMEN AT "9/10" ATTACHED TO MONITOR
--- NOTE | 2022-11-25 22:30 | NUR ---
SIGNED CONSENT FOR US GUIDED PARACENTESIS ATTACHED TO CHART
--- NOTE | 2022-11-25 22:32 | NUR ---
DR. EDOUARD AT BEDSIDE
[2022-11-25] MEDS ORDERED: MORPHINE SULFATE 4 MG/ML SYR IM ONE (22:45)
[2022-11-25] MEDS ORDERED: LIDOCAINE MPF 1% 10 MG/ML VIAL INJ ONE (23:00)
--- NOTE | 2022-11-25 23:00 | NUR ---
US GUIDED PARACENTESIS STARTED BY DR. EDOUARD
--- NOTE | 2022-11-25 23:30 | NUR ---
US GUIDED PARACENTESIS DONE. PT TOLERATED THE PROCEDURE. NO COMPLAINT OF PAIN.
[2022-11-26] MEDS ORDERED: ALBUMIN HUMAN 5 % 500 ML IV ONE ×2 (00:05→00:36)
[2022-11-26] MEDS ORDERED: MORPHINE SULFATE 4 MG/ML SYR IVP ONE (00:20)
--- NOTE | 2022-11-26 02:00 | NUR ---
86044 ML OF ABDOMINAL FLUID THROUGH PARACENTESIS
--- NOTE | 2022-11-26 02:37 | NUR ---
PT RESTING ON BED, NOT IN DISTRESS, WITH EYES CLOSE
[2022-11-26 04:35] VITALS: BP 105/59
== END 2022-11-26 04:35 | disposition home or self-care (01) ==
LOC: MED 21:00
DX: R18.8 Other ascites (principal); K74.60 Unspecified cirrhosis of liver; N18.9 Chronic kidney disease, unspecified; Z88.5 Allergy status to narcotic agent; Z79.899 Other long term (current) drug therapy
CPT/HCPCS: 49083; 96361; 96374; 99285; J2001; J2270; P9041

== ENCOUNTER 2022-12-02 16:46 | Inpatient (IN) | payer OTHER ==
[~2022-12-02] VITALS: Ht 162.6 cm; Wt 73.0 kg
[2022-12-02] MEDS: LACTULOSE 20 GM/30 ML UDC PO SCH
[2022-12-02 16:47] VITALS: BP 120/75; PULSE 63; RESP 16; TEMP 98; O2SAT 99
--- NOTE | 2022-12-02 16:55 | NUR ---
AMBULATED TO BED 8
[2022-12-02 17:16] LABS: BASOPHILS # (AUTO) 0.1 K/uL (0.00-0.22); BASOPHILS % (AUTO) 0.9 % (0.0-2.0); EOSINOPHILS % (AUTO) 0.3 % (0.0-4.0); HEMATOCRIT 22.4 % (36-52); HEMOGLOBIN 7.1 g/dL (12.0-18.0); LYMPHOCYTES # (AUTO) 1.1 K/uL (2.0-11.5); LYMPHOCYTES % (AUTO) 13.6 % (20.5-51.1); MEAN CORPUSCULAR HEMOGLOBIN 22 pg (27-31); MEAN CORPUSCULAR HGB CONC 32 g/dL (33-37); MONOCYTES # (AUTO) 0.5 K/uL (0.8-1.0); MONOCYTES % (AUTO) 6.1 % (1.7-9.3); NEUTROPHILS # (AUTO) 6.3 K/uL (1.8-7.7); NEUTROPHILS % (AUTO) 79.1 % (42.2-75.2); PLATELET COUNT (AUTO) 279 K/uL (140-450); RED BLOOD CELL COUNT(AUTO) 3.25 MIL/uL (4.20-6.10); RED CELL DISTRIBUTION WIDTH 17.4 % (11.6-13.7); WHITE BLOOD COUNT (AUTO) 7.9 K/uL (4.8-10.8)
[2022-12-02] MEDS ORDERED: ONDANSETRON 4 MG/2 ML VIAL IVP ONE (17:30)
[2022-12-02 17:35] LABS: ALBUMIN 1.8 g/dL (3.4-5.0); ANION GAP 13.9 (8-16); CARBON DIOXIDE 19.2 mmol/L (21-32); CREATININE 1.5 mg/dL (0.6-1.3); TOTAL BILIRUBIN 0.7 mg/dL (0.0-1.0)
--- NOTE | 2022-12-02 17:43 | NUR ---
GAURAV FROM CALLED TO REPORT LABS;K 6.1 , BUN 53, CREA 1.46
[2022-12-02 17:44] LABS: POTASSIUM 6.1 mmol/L (3.5-5.1)
--- NOTE | 2022-12-02 17:45 | NUR ---
AWARE OF CRITICAL LABS
--- NOTE | 2022-12-02 17:57 | NUR ---
The patient's care was reviewed and supervised by DWAYNE SANTOS RN.
--- NOTE | 2022-12-02 17:57 | NUR ---
N/V ANTIEMETIC GIVEN ORDERED
--- NOTE | 2022-12-02 17:58 | NUR ---
LAB CALLED FOR HGB 7.1, HCT 22.4, INFORMED
[2022-12-02] MEDS ORDERED: PANTOPRAZOLE 40 MG INJ VIAL IVP ONE (18:30)
[2022-12-02] MEDS ORDERED: OCTREOTIDE ACETATE 100 MCG/ML VIAL IV ONE (18:30)
[2022-12-02] MEDS ORDERED: INSULIN REGULAR, HUMAN 100 UNIT/ML VIAL IV ONE (18:35)
[2022-12-02] MEDS ORDERED: FUROSEMIDE 40 MG/4 ML VIAL IVP ONE (18:35)
[2022-12-02] MEDS ORDERED: CALCIUM GLUC 1 GM/50 mL NS BAG 50 ML IV ONE (18:35)
[2022-12-02] MEDS ORDERED: DEXTROSE 50% 50 ML SYR IVP ONE (18:35)
[2022-12-02] MEDS ORDERED: SODIUM ZIRCONIUM CYCLOSILICATE 10 GM POWD.PACK PO ONE (18:35)
[2022-12-02 19:04] LABS: APPEARANCE,URINE CLEAR (CLEAR); BILIRUBIN,URINE NEGATIVE (NEGATIVE); BLOOD, URINE NEGATIVE (NEGATIVE); COLOR,URINE YELLOW (YELLOW); LEUKOCYTE ESTERASE ,URINE NEGATIVE (NEGATIVE); NITRITE, URINE NEGATIVE (NEGATIVE); UGLUCOSE NEGATIVE (NEGATIVE)
[2022-12-02] MEDS ORDERED: ALBUTEROL 0.083% 2.5 MG/3 ML NEBU INH ONE (19:10)
[2022-12-02 19:20] VITALS: PULSE 91; RESP 10; O2SAT 100
[2022-12-02 19:21] LABS: PROTHROMBIN TIME 11.5 secs (10.8-13.4)
[2022-12-02 19:29] LABS: RBC,URINE 0-5 /HPF (0-5)
[2022-12-02 19:30] LABS: TRICHOMONAS,URINE None Seen /HPF (None Seen); YEAST,URINE None Seen /HPF (None Seen)
--- NOTE | 2022-12-02 19:30 | NUR ---
Елена payan in [facility] - 12/02/22 at 1932 by MARISSA REPORT ISMAEL BOWENS RN. ALL QUESTIONS ANSWERED
--- NOTE | 2022-12-02 19:33 | NUR ---
Received report to COLIN Barney.
[2022-12-02] MEDS ORDERED: SODIUM ZIRCONIUM CYCLOSILICATE 10 GM POWD.PACK ONE (20:14)
[2022-12-02] MEDS ORDERED: PANTOPRAZOLE 40 MG INJ VIAL ONE (20:14)
[2022-12-02] MEDS: PANTOPRAZOLE 80 MG in NACL 0.9% 100 ML IVP SCH (20:30)
--- NOTE | 2022-12-02 21:11 | NUR ---
Called ICU to give report. Receiving nurse is with another patient. Will call back in 10 minutes.
--- NOTE | 2022-12-02 21:39 | NUR ---
Called ICU and gave report to BROCK Stinson
--- NOTE | 2022-12-02 22:10 | NUR ---
RECEIVED REPORT FROM ER NURSE, GOGO GUTIÉRREZ. RECEIVED PT FROM ER VIA GURNEY, AWAKE AND ORIENTED X4. ABLE TO AMBULATE WITH ASSIST. ASSISTED SAFELY ON BED. BED SET TO SEMI[place]'S POSITION WITH SIDE RAILS RAISED UP AND SAFETY PRECAUTIONS INITIATED. PT IS ON ROOM AIR AT 100% O2SAT. NO PRESENCE OF COUGH. WITH ABDOMINAL DISTENTION NOTED - SOFT, NON-TENDER. WITH RIGHT ANTECUBITAL IV ACCESS G20. WITH BILATERAL WRIST G20 IV ACCESS WITH RIGHT IV FLOWING TO PROTONIX DRIP. SKIN IS INTACT. CONTINENT AND ABLE TO VOID THRU URINAL. NO COMPLAINTS OF PAIN. SKIN IS INTACT. WILL MONITOR PT CLOSELY.
[2022-12-02 22:15] VITALS: PULSE 99; RESP 20; O2SAT 100
[2022-12-02 23:00] VITALS: BP 122/68; PULSE 99; RESP 20; TEMP 97.1; O2SAT 100
--- NOTE | 2022-12-02 23:05 | NUR ---
HEMOGLOBIN 7.1. WITH BT ORDER AND WITH AVAILABLE BLOOD. FACILITATED CONSENT. PRE-TRANSFUSION VS RECORDED T-97.1F, ID-[id number], RR-20CPM, BP-115/75MMHG.
--- NOTE | 2022-12-02 23:10 | NUR ---
BT STARTED WITH PRBC "A"POSITIVE [id number] - VERIFIED WITH NURSE ADARSH RN. BT REGULATED AT 100ML/HR. MONITORED FOR BT REACTIONS. 5155 - NO REACTIONS OBSERVED. REGULATED TO 120 ML/HR. KEPT MONITORED.
[2022-12-02] MEDS ORDERED: OCTREOTIDE ACETATE 100 MCG/ML VIAL ONE (23:39)
--- NOTE | 2022-12-02 23:44 | NUR ---
SANDOSTATIN IV GIVEN PER PREVIOUS ORDER AT ER.
--- NOTE | 2022-12-02 23:55 | NUR ---
PT HAVING NAUSEA AND VOMITING. NO STANDING ORDER FOR ZOFRAN. INFORMED DR. POLLOCK ABOUT PTS STATUS AND CLARIFIED LACTULOSE ORDER. WITH ORDER FOR ZOFRAN - GIVEN. LACTULOSE ORDER NOT ADMINISTERED ADVISED SINCE PT IS ON NPO.
[2022-12-03] VITALS (19 sets, daily range): BP systolic 102–124; BP diastolic 64–85; PULSE 80–98; RESP 13–18; TEMP 96.9–97.5; O2SAT 95–100
[2022-12-03] MEDS ORDERED: ONDANSETRON 4 MG/2 ML VIAL IVP PRN (00:05)
[2022-12-03] MEDS ORDERED: ONDANSETRON 4 MG/2 ML VIAL ONE (00:11)
--- NOTE | 2022-12-03 02:00 | NUR ---
BT COMPLETED WITHOUT ADVERSE EFFECTS.
--- NOTE | 2022-12-03 02:30 | NUR ---
2ND BAG OF BLOOD STARTED. VERIFIED WITH BROCK ALTAMIRANO. VS MONITORED ACCORDINGLY.
[2022-12-03] MEDS ORDERED: PANTOPRAZOLE 40 MG INJ VIAL ONE (05:23)
[2022-12-03] MEDS: PANTOPRAZOLE 80 MG in NACL 0.9% 100 ML IVP SCH ×2 (05:38→15:25)
--- NOTE | 2022-12-03 06:00 | NUR ---
2ND BAG OF BLOOD COMPLETED. H&H ORDERED FOR NEXT SHIFT. NO REACTIONS NOTED.
--- NOTE | 2022-12-03 07:30 | NUR ---
REPORT GIVEN TO DAY SHIFT NURSELOTUS RN. ALL QUESTIONS ANSWERED.
--- NOTE | 2022-12-03 07:31 | NUR ---
RECEIVED REPORT FROM LCSW NURSE FOR CONTINUITY OF CARE. PATIENT LYING DOWN IN BED. NO DISTRESS NOTED. DENIES ANY PAIN. AAOX4, NO HEMATEMESIS. ABDOMEN DISTENDED, SOFT, ASCITIC. HAS HISTORY OF LIVER CIRRHOSIS. SKIN INTACT. IV SITES INTACT, PATENT AND INFUSING IVF PER MD ORDERS. REVIEWED PLAN OF CARE WITH PATIENT. VERBALIZED UNDERSTANDING. SAFETY MEASURES IN PLACE, CALL LIGHT WITHIN REACH. WILL CONTINUE TO MONITOR.
[2022-12-03 08:36] LABS: HEMATOCRIT 30.4 % (36-52); HEMOGLOBIN 9.8 g/dL (12.0-18.0)
[2022-12-03] MEDS ORDERED: OCTREOTIDE ACETATE 100 MCG/ML VIAL IV SCH (09:00)
[2022-12-03] MEDS ORDERED: SPIRONOLACTONE 50 MG TAB PO SCH (09:00)
[2022-12-03 09:13] LABS: BASOPHILS # (AUTO) 0.1 K/uL (0.00-0.22); EOSINOPHILS # (AUTO) 0.2 K/uL (0-0.4); EOSINOPHILS % (AUTO) 2.8 % (0.0-4.0); HEMATOCRIT 29.9 % (36-52); HEMOGLOBIN 9.8 g/dL (12.0-18.0); LYMPHOCYTES # (AUTO) 1.3 K/uL (2.0-11.5); LYMPHOCYTES % (AUTO) 19.3 % (20.5-51.1); MEAN CORPUSCULAR HEMOGLOBIN 25 pg (27-31); MEAN CORPUSCULAR HGB CONC 33 g/dL (33-37); MEAN CORPUSCULAR VOLUME 75.3 fL (80-94); MONOCYTES # (AUTO) 0.4 K/uL (0.8-1.0); MONOCYTES % (AUTO) 6.2 % (1.7-9.3); NEUTROPHILS # (AUTO) 4.8 K/uL (1.8-7.7); NEUTROPHILS % (AUTO) 70.7 % (42.2-75.2); PLATELET COUNT (AUTO) 198 K/uL (140-450); RED BLOOD CELL COUNT(AUTO) 3.97 MIL/uL (4.20-6.10); RED CELL DISTRIBUTION WIDTH 20.1 % (11.6-13.7); WHITE BLOOD COUNT (AUTO) 6.7 K/uL (4.8-10.8)
[2022-12-03 09:21] LABS: ANION GAP 15.9 (8-16); CARBON DIOXIDE 18.5 mmol/L (21-32); CREATININE 1.9 mg/dL (0.6-1.3)
[2022-12-03 09:24] LABS: POTASSIUM 6.4 mmol/L (3.5-5.1)
--- NOTE | 2022-12-03 09:40 | NUR ---
PATIENT HAS BEEN SCREENED AND CATEGORIZED HIGH NUTRITION RISK. PATIENT WILL BE SEEN WITHIN 1-2 DAYS OF ADMISSION. 12/02/22-12/04/[address] REFERRAL RECEIVED FOR VOMITING > 3 DAYS
--- NOTE | 2022-12-03 09:45 | NUR ---
DR. DECKER ON UNIT TALKING WITH PATIENT. WILL CONTINUE TO MONITOR.
[2022-12-03] MEDS ORDERED: SODIUM POLYSTYRENE 15 GM/60 ML UDBTL PO SCH (10:00)
[2022-12-03] MEDS ORDERED: FUROSEMIDE 20 MG/2 ML VIAL IVP SCH (10:00)
[2022-12-03] MEDS: LACTULOSE 20 GM/30 ML UDC PO SCH ×2 (10:06→21:00)
[2022-12-03] MEDS: DEXT 5% / NACL 0.45% 1,000 ML IV SCH (10:07)
--- NOTE | 2022-12-03 11:08 | NUR ---
SCHEDULED MEDICATIONS DUE GIVEN. WILL CONTINUE TO MONITOR.
--- NOTE | 2022-12-03 12:01 | NUR ---
12/03/22 RD INITIAL ASSESSMENT COMPLETED. PLEASE REFER TO NUTRITION ASSESSMENT UNDER CARE ACTIVITY FOR ESTIMATED NUTRITIONAL NEEDS. 1. RECOMMEND HEPATIC DIET TOLERATED 2. MONITOR GI SYMPTOMS 3. RD TO FOLLOW-UP 2-3 DAYS, HIGH RISK ALBA CARVER RD
--- NOTE | 2022-12-03 13:00 | NUR ---
HAD ANOTHER BM, #2 TODAY, BLACK STOOL. WILL CONTINUE TO MONITOR.
--- NOTE | 2022-12-03 16:10 | NUR ---
FOLLOWED UP WITH WORKERS COMPENSATION EXAMINER FOR PARACENTESIS. NO IR MD ON WEEKENDS, MOST LIKELY PARACENTESIS WILL BE DONE TOMORROW. RADIOLOGY UNIT WILL CALL IR MD TOMORROW AND CONFIRM. ORDERED LABS, PT, PTT, INR REQUIRED FOR POSSIBLE PARACENTESIS TOMORROW PER US TECH.
[2022-12-03 16:35] LABS: ANION GAP 15.3 (8-16); CARBON DIOXIDE 19.1 mmol/L (21-32); POTASSIUM 4.4 mmol/L (3.5-5.1)
--- NOTE | 2022-12-03 19:22 | NUR ---
GAVE REPORT TO BALANCE BRIDGE INSPECTOR NURSE FOR CONTINUITY OF CARE. PATIENT SITTING IN BED WATCHING TV.
--- NOTE | 2022-12-03 20:50 | NUR ---
PT IN STABLE CONDITION AT THIS TIME, FAMILY MEMBER AT BEDSIDE
[2022-12-04] VITALS (8 sets, daily range): BP systolic 103–129; BP diastolic 63–81; PULSE 74–108; RESP 14–19; TEMP 97.6–98.8; O2SAT 96–100
[2022-12-04] MEDS ORDERED: PANTOPRAZOLE 40 MG INJ VIAL ONE (00:37)
[2022-12-04] MEDS: PANTOPRAZOLE 80 MG in NACL 0.9% 100 ML IVP SCH (00:47)
[2022-12-04 05:21] LABS: BASOPHILS # (AUTO) 0.1 K/uL (0.00-0.22); BASOPHILS % (AUTO) 1.1 % (0.0-2.0); EOSINOPHILS # (AUTO) 0.3 K/uL (0-0.4); EOSINOPHILS % (AUTO) 5.9 % (0.0-4.0); HEMATOCRIT 28.4 % (36-52); HEMOGLOBIN 9.5 g/dL (12.0-18.0); LYMPHOCYTES # (AUTO) 0.9 K/uL (2.0-11.5); LYMPHOCYTES % (AUTO) 14.6 % (20.5-51.1); MEAN CORPUSCULAR HEMOGLOBIN 25 pg (27-31); MEAN CORPUSCULAR HGB CONC 33 g/dL (33-37); MEAN CORPUSCULAR VOLUME 74.4 fL (80-94); MONOCYTES # (AUTO) 0.5 K/uL (0.8-1.0); MONOCYTES % (AUTO) 8.3 % (1.7-9.3); NEUTROPHILS # (AUTO) 4.1 K/uL (1.8-7.7); NEUTROPHILS % (AUTO) 70.1 % (42.2-75.2); PLATELET COUNT (AUTO) 196 K/uL (140-450); RED BLOOD CELL COUNT(AUTO) 3.81 MIL/uL (4.20-6.10); RED CELL DISTRIBUTION WIDTH 19.8 % (11.6-13.7); WHITE BLOOD COUNT (AUTO) 5.9 K/uL (4.8-10.8)
[2022-12-04 05:39] LABS: PROTHROMBIN TIME 12.5 secs (10.8-13.4)
[2022-12-04 06:09] LABS: ANION GAP 12.9 (8-16); CARBON DIOXIDE 21.2 mmol/L (21-32); CREATININE 1.8 mg/dL (0.6-1.3); POTASSIUM 4.1 mmol/L (3.5-5.1)
--- NOTE | 2022-12-04 06:49 | NUR ---
TRANSFER OF CARE GIVEN TO LULÚ GUTIÉRREZ FOR CONTINUATION OF CARE.
[2022-12-04] MEDS: DEXT 5% / NACL 0.45% 1,000 ML IV SCH (07:34)
--- NOTE | 2022-12-04 07:44 | NUR ---
GOT REPORT FROM NIGHT NURSE OF ICU ,NO SOB DISCUSSED POC WITH PT.GWENDOLYN
[2022-12-04] MEDS: OCTREOTIDE ACETATE 1.25 MG in NACL 0.9% 250 ML IV SCH (08:47)
[2022-12-04] MEDS: PANTOPRAZOLE 40 MG INJ VIAL IVP SCH ×2 (08:55→21:24)
[2022-12-04] MEDS: LACTULOSE 20 GM/30 ML UDC PO SCH ×2 (09:00→21:24)
--- NOTE | 2022-12-04 10:00 | NUR ---
PT USED BATHROOM HAD BM AND ABLE TO GET BACK TO THE BED WITHOUT PANTOGRAPH ENGRAVER.[id number]
--- NOTE | 2022-12-04 11:00 | NUR ---
PT IS RESTING IV FLUID IS INFUSING ORDERED.[id number]
--- NOTE | 2022-12-04 14:18 | NUR ---
DC PLANNIN YRS OLD MALE PATIENT WAS ADMITTED FROM HOME WITH A DX OF SEIZURE AND UTI. PATIENT HAS A HX OF CEREBRAL PALSY, CHRONIC RESPIRATORY FAILURE , TRACH TO VENT. CXR SHOWED PROBABLE LEFT BASE ATELECTASIS BUT NO RADIOGRAPHICALLY ACUTE CARDIOPULMONARY DISEASE. ABDOMINAL US SHOWED MODERATED ASCITES. PARACENTESIS ORDERED, ADMINISTERED IVF, IV ABX ROCEPHIN AND CONTINUED HOME MEDS. DC PLAN TO GO HOME WHEN STABLE. CM TO FOLLOW
--- NOTE | 2022-12-04 17:16 | NUR ---
Recruitment Intern COLLET GLUER conducted this discharge planning assessment. Pt. stated he resides with brother who works. Pt. stated 75% of time, he can use his lea to get into the house. 25% of time, if he has too much fluid in his stomach, he is unable to get up the two stairs to get inside. He will wait for brother to get home or neighbors will assist to get him inside. Pt stated he has not been working for the past 9 months due to his illness. Pt. stated he is hungry, but has to wait until his endoscopy procedure.Pt. stated the Dr. could not do the procedure so now he has to wait and remain hungry. Pt. stated he wanted to change PCP. COLLET GLUER advised pt. on how to do so. COLLET GLUER will remain available as needed.
[2022-12-04 18:55] LABS: HEMATOCRIT 29.6 % (36-52); HEMOGLOBIN 9.4 g/dL (12.0-18.0)
--- NOTE | 2022-12-04 19:23 | NUR ---
GAVE THE REPORT TO THE NIGHT NURSE, PT IS HAVENING LATE DINNER C/O EGD CANCELLED.
--- NOTE | 2022-12-04 19:30 | NUR ---
RECEIVED REPORT FROM DAY SHIFT NURSE LULÚ FOR CONTINUITY OF CARE. PATIENT IS A&O X4. PATIENT IS ON ROOM AIR. BREATHING IS NORMAL WITH SYMMETRICAL RISE AND FALL OF CHEST. IV IS A 20G RAC, AND A 22G R WRIST; RUNNING D5 1/2 NS AT 50ML. PATIENT IS SLEEPING SEMI-FOWLERS IN BED. BED IS IN LOWEST POSITION, WHEELS LOCKED, CALL LIGHT IN PLACE. WILL CONTINUE TO OBSERVE PATIENT.
[2022-12-04 23:10] LABS: APPEARANCE,SPUN,BODY FLUID CLEAR (CLEAR); APPEARANCE,UNSPUN,BODY FLUID CLEAR (CLEAR); COLOR,BODY FLUID LT YELLOW (LT YELLOW); SPECIMENTYPE,BODY FLUID ASCITES
[2022-12-04 23:11] LABS: GLUCOSE,BODY FLUID 114 mg/dL; TOTAL VOLUME,BODY FLUID 11000 mL
[2022-12-04 23:47] LABS: RBC, BODY FLUID 29 /cu. mm.; WBC, BODY FLUID 11 /cu. mm.
[2022-12-05] VITALS: BP 101/62; PULSE 103; PULSE 95; RESP 18; TEMP 97.6; O2SAT 99
--- NOTE | 2022-12-05 01:30 | NUR ---
LOOKED IN ON PATIENT. PATIENT WAS SLEEPING, BREATHING WAS NORMAL WITH SYMMETRICAL RISE AND FALL OF CHEST. WILL CONTINUE TO OBSERVE PATIENT.
[2022-12-05 04:00] VITALS: BP 98/59; PULSE 92; PULSE 94; RESP 18; TEMP 98.8; O2SAT 98
[2022-12-05] MEDS: DEXT 5% / NACL 0.45% 1,000 ML IV SCH (04:38)
--- NOTE | 2022-12-05 04:45 | NUR ---
0400 PATIENT STARTED COMPLAINING OF LEG CRAMPS. CHECKED EMAR, PATIENT DIDN'T HAVE ANYTHING ON CHART FOR CRAMPING. DR. PERDOMO CAME IN TO LOOK IN ON PATIENT AT 0, INFORMED AT BEDSIDE OF PATIENT'S COMPLAINT OF LEG CRAMPING AND NO MEDS ON EMAR FOR IT. DR. PERDOMO INFORMED ME THAT HE'S A SHERIFF OFFICER AND ASKED WHO HIS PHYSICIAN WAS. I INFORMED HIM IT WAS DR. POLLOCK; HE TOLD ME THAT I SHOULD TELL THE DAY SHIFT NURSE TO LET THE DOCTOR KNOW WHEN HE MAKES ROUNDS. ALSO SAID IT MIGHT BE A POTASSIUM ISSUE, SO MAKE SURE THEY KNOW TO CHECK THE LABS. STATES PATIENT IS CLEAR FOR D/C FROM SHERIFF OFFICER STAND POINT.
[2022-12-05 05:25] LABS: BASOPHILS # (AUTO) 0.1 K/uL (0.00-0.22); BASOPHILS % (AUTO) 0.8 % (0.0-2.0); EOSINOPHILS # (AUTO) 0.4 K/uL (0-0.4); EOSINOPHILS % (AUTO) 6.1 % (0.0-4.0); HEMATOCRIT 27.4 % (36-52); LYMPHOCYTES % (AUTO) 15.6 % (20.5-51.1); MEAN CORPUSCULAR HEMOGLOBIN 24 pg (27-31); MEAN CORPUSCULAR HGB CONC 33 g/dL (33-37); MEAN CORPUSCULAR VOLUME 73.7 fL (80-94); MONOCYTES # (AUTO) 0.6 K/uL (0.8-1.0); MONOCYTES % (AUTO) 8.7 % (1.7-9.3); NEUTROPHILS # (AUTO) 4.5 K/uL (1.8-7.7); NEUTROPHILS % (AUTO) 68.8 % (42.2-75.2); PLATELET COUNT (AUTO) 159 K/uL (140-450); RED BLOOD CELL COUNT(AUTO) 3.72 MIL/uL (4.20-6.10); RED CELL DISTRIBUTION WIDTH 20.9 % (11.6-13.7); WHITE BLOOD COUNT (AUTO) 6.6 K/uL (4.8-10.8)
--- NOTE | 2022-12-05 07:25 | NUR ---
RECEIVED PT FROM ANCILLARY SERVICES MANAGER NURSE FOR CONTINUITY OF CARE. PT IS AWAKE AOX4, ABLE TO VERBALIZE NEEDS. RESPIRATIONS EVEN AND UNLABORED ON RA. IV ON RAC 20G, AND ON R WRIST 20G. IVF RUNNING AT 50 MLS/HR. NO DISTRESS NOTED, CALL LIGHT WITHIN REACH. ALL SAFETY PRECAUTIONS IN PLACE.
[2022-12-05 07:35] LABS: ALBUMIN 1.3 g/dL (3.4-5.0); ANION GAP 14.1 (8-16); CARBON DIOXIDE 19.4 mmol/L (21-32); CREATININE 1.4 mg/dL (0.6-1.3); POTASSIUM 4.5 mmol/L (3.5-5.1); TOTAL BILIRUBIN 0.6 mg/dL (0.0-1.0)
--- NOTE | 2022-12-05 07:51 | NUR ---
ENDORSED TO DAY SHIFT NURSE CRUZITO FOR CONTINUITY OF CARE. PATIENT IS STABLE.
[2022-12-05 08:00] VITALS: BP 101/61; PULSE 89; PULSE 97; RESP 18; TEMP 97.6; O2SAT 100; O2SAT 99
[2022-12-05] MEDS: OCTREOTIDE ACETATE 1.25 MG in NACL 0.9% 250 ML IV SCH (08:14)
[2022-12-05] MEDS: PANTOPRAZOLE 40 MG INJ VIAL IVP SCH (08:14)
[2022-12-05] MEDS ORDERED: PANT40EC56 PO (08:33)
[2022-12-05] MEDS ORDERED: ALBUMIN HUMAN 25% 100 ML IV SCH (08:40)
[2022-12-05] MEDS: LACTULOSE 20 GM/30 ML UDC PO SCH (09:00)
--- NOTE | 2022-12-05 13:57 | NUR ---
12/05/22 RD FOLLOW UP COMPLETED PLEASE REFER TO NUTRITION ASSESSMENT UNDER CARE ACTIVITY FOR ESTIMATED NUTRITIONAL NEEDS. 1. RD RECOMMENDS HEPATIC DIET TOLERATED. 2. RD TO FOLLOW-UP 7 DAYS, LOW RISK HAYES FARRELL RD
[2022-12-05] MEDS ORDERED: HYDROcodone/APAP 5/325 MG 1 TAB TAB PO SCH (15:27)
[2022-12-05 16:00] VITALS: BP 96/57; PULSE 91; RESP 18; TEMP 98.1; O2SAT 99
[2022-12-05 16:29] VITALS: BP 108/55; PULSE 77; RESP 18; TEMP 98.4
--- NOTE | 2022-12-05 17:00 | NUR ---
DC PACKET REVIEWED WITH PT. BOTH IV SITES REMOVED. PT IN STABLE CONDITION. PT BROTHER AT BEDSIDE. PT TAKEN VIA WHEELCHAIR TO [facility]. PT IN STABLE CONDITION, DC TO HOME.
== END 2022-12-05 17:10 | disposition home or self-care (01) | DRG 663 ==
LOC: MED 16:46 → MLD 19:58 → MIC 20:35 → MTU 12-04 06:45
PROVIDERS: ADMIT Family Medicine; ATTEND Family Medicine
PROC: 30233N1 Transfusion of Nonautologous Red Blood Cells into Peripheral Vein, Percutaneous Approach (ICD-10-PCS; 2022-12-02)
PROC: 0W9G3ZZ Drainage of Peritoneal Cavity, Percutaneous Approach (ICD-10-PCS; principal; 2022-12-04)
DX: D62 Acute posthemorrhagic anemia (principal); K76.7 Hepatorenal syndrome; K22.6 Gastro-esophageal laceration-hemorrhage syndrome; E44.0 Moderate protein-calorie malnutrition; E87.1 Hypo-osmolality and hyponatremia; D63.8 Anemia in other chronic diseases classified elsewhere; K70.31 Alcoholic cirrhosis of liver with ascites; E87.5 Hyperkalemia; N17.9 Acute kidney failure, unspecified; N18.9 Chronic kidney disease, unspecified; Z88.1 Allergy status to other antibiotic agents; Z68.27 Body mass index [BMI] 27.0-27.9, adult
CPT/HCPCS: 36415; 36430; 49083; 71045; 76705; 80048; 80053; 81001; 82140; 82945; 83690; 84157; 85018; 85025; 85610; 85730; 86886; 86900; 86901; 86920; 87070; 87075; 87205; 89051; 93005; 94644; 96374; 96375; 99291; C9113; J0610; J0696; J1815; J1940; J2001; J2354; J2405; J7030; J7060; J7613; P9016; P9046; Q0092

== ENCOUNTER 2022-12-11 09:04 | Emergency (ER) | payer OTHER ==
[~2022-12-11] VITALS: Ht 162.6 cm; Wt 74.4 kg
[2022-12-11 09:24] VITALS: BP 121/81; PULSE 108; RESP 20; TEMP 98.4; O2SAT 98
--- NOTE | 2022-12-11 09:28 | NUR ---
Patient ambulated to bed 9.
--- NOTE | 2022-12-11 09:32 | NUR ---
52 yo/m w c/o needing a paracentisis d/t abdominal fluid retention had last paracentisis last sunday w 11L out, awaiting for insurance to be able to go to pcp regularly. pt c/o abdominal pain 02/18, + sob, no chest pain. abdomen hard and distended. pt took a diuretic at 0630. pmh: cirrhosis allergies: ibuprofen
--- NOTE | 2022-12-11 09:58 | NUR ---
Dr. Her evaluating patient at bedside.
[2022-12-11 10:25] LABS: BASOPHILS # (AUTO) 0.1 K/uL (0.00-0.22); BASOPHILS % (AUTO) 0.7 % (0.0-2.0); EOSINOPHILS # (AUTO) 0.3 K/uL (0-0.4); EOSINOPHILS % (AUTO) 4.2 % (0.0-4.0); HEMATOCRIT 27.2 % (36-52); HEMOGLOBIN 9.1 g/dL (12.0-18.0); LYMPHOCYTES # (AUTO) 0.9 K/uL (2.0-11.5); MEAN CORPUSCULAR HEMOGLOBIN 25 pg (27-31); MEAN CORPUSCULAR HGB CONC 34 g/dL (33-37); MEAN CORPUSCULAR VOLUME 73.8 fL (80-94); MONOCYTES # (AUTO) 0.7 K/uL (0.8-1.0); MONOCYTES % (AUTO) 10.2 % (1.7-9.3); NEUTROPHILS # (AUTO) 5.3 K/uL (1.8-7.7); NEUTROPHILS % (AUTO) 72.9 % (42.2-75.2); PLATELET COUNT (AUTO) 199 K/uL (140-450); RED BLOOD CELL COUNT(AUTO) 3.69 MIL/uL (4.20-6.10); RED CELL DISTRIBUTION WIDTH 22.5 % (11.6-13.7); WHITE BLOOD COUNT (AUTO) 7.2 K/uL (4.8-10.8)
[2022-12-11 10:26] LABS: APPEARANCE,URINE CLEAR (CLEAR); BILIRUBIN,URINE NEGATIVE (NEGATIVE); BLOOD, URINE 2+ (NEGATIVE); COLOR,URINE YELLOW (YELLOW); LEUKOCYTE ESTERASE ,URINE NEGATIVE (NEGATIVE); NITRITE, URINE NEGATIVE (NEGATIVE); UGLUCOSE NEGATIVE (NEGATIVE)
[2022-12-11 10:45] LABS: CALCIUM OXALATE CRYSTALS,UR None Seen /HPF (None Seen); COARSE GRANULAR CASTS,URINE None Seen /LPF (None Seen); FINE GRANULAR CASTS,URINE None Seen /LPF (None Seen); HYALINE CASTS, URINE None Seen /LPF (None Seen); OTHER CASTS, URINE None Seen /LPF (None Seen); OTHER CRYSTALS,URINE None Seen /HPF (None Seen); RBC,URINE 0-5 /HPF (0-5); RED BLOOD CELL CASTS,URINE None Seen /LPF (None Seen); TRICHOMONAS,URINE None Seen /HPF (None Seen); TRIPLE PHOSPHATE CRYSTAL,UR None Seen /HPF (None Seen); URIC ACID CRYSTALS,URINE None Seen /HPF (None Seen); URINE AMORPHOUS URATE None Seen /HPF (None Seen); WAXY CASTS,URINE None Seen /LPF (None Seen)
[2022-12-11 10:46] LABS: YEAST,URINE Few /HPF (None Seen)
[2022-12-11 10:49] LABS: ALBUMIN 1.8 g/dL (3.4-5.0); ANION GAP 14.6 (8-16); CREATININE 1.1 mg/dL (0.6-1.3); POTASSIUM 4.6 mmol/L (3.5-5.1); TOTAL BILIRUBIN 0.6 mg/dL (0.0-1.0)
[2022-12-11 10:50] LABS: PROTHROMBIN TIME 11.9 secs (10.8-13.4)
--- NOTE | 2022-12-11 11:06 | NUR ---
paracentisis in progress.
--- NOTE | 2022-12-11 11:32 | NUR ---
approx 5L ascites fluid out at this time, ongoing draining.
[2022-12-11 11:33] LABS: GLUCOSE,BODY FLUID 111 mg/dL
--- NOTE | 2022-12-11 11:50 | NUR ---
paracentisis comlete pt reports feeling better. vss. 6.5L of ascitic fluid drained.
[2022-12-11] MEDS ORDERED: cefTRIAXone 1,000 MG VIAL ONE (14:37)
[2022-12-11 14:41] LABS: POLYNUCLEAR, BODY FLUID 36 %
[2022-12-11 14:42] LABS: APPEARANCE,SPUN,BODY FLUID CLEAR (CLEAR); APPEARANCE,UNSPUN,BODY FLUID SLIGHTLY CLOUDY (CLEAR); SPECIMENTYPE,BODY FLUID ASCITES; TOTAL VOLUME,BODY FLUID 5000 mL
[2022-12-11 14:43] LABS: COLOR,BODY FLUID LT YELLOW (LT YELLOW); RBC, BODY FLUID 88 /cu. mm.; WBC, BODY FLUID 100 /cu. mm.
--- NOTE | 2022-12-11 15:30 | NUR ---
per zully cali pt up for dc no other interventions required.
[2022-12-11 15:33] VITALS: BP 106/63; PULSE 83; RESP 19; TEMP 98.4; O2SAT 99
== END 2022-12-11 15:33 | disposition home or self-care (01) ==
LOC: MED 09:04
DX: R18.8 Other ascites (principal); K74.60 Unspecified cirrhosis of liver; Z79.899 Other long term (current) drug therapy
CPT/HCPCS: 36415; 49083; 71045; 80053; 81001; 82945; 83605; 83615; 83880; 84157; 85025; 85610; 85730; 87040; 87070; 87075; 87205; 89051; 93005; 96365; 99285; J0696; Q0092

== ENCOUNTER 2022-12-14 08:01 | Emergency (ER) | payer OTHER ==
[~2022-12-14] VITALS: Ht 162.6 cm; Wt 77.6 kg
[2022-12-14 08:20] VITALS: BP 132/87; PULSE 102; RESP 22; TEMP 97.6; O2SAT 98
--- NOTE | 2022-12-14 08:23 | NUR ---
PT AMBULATED TO BED 8
--- NOTE | 2022-12-14 08:33 | NUR ---
52YO M PRESENTS W/ASCITIS AND ABD DISTENTION X 4DAYS. PT W/HX OF LIVER CIRRHOSIS, PT STATES HE COMES TO ED WEEKLY FOR PARACENTHESIS UNTIL INSURANCE APPROVAL TO SEE GI. PT DENIES N,V,D, FEVER, CHILLS, SANTOS, CP, SOB, URINARY SYMPTOMS. NAD NOTED, SAFETY MAINTAINED. HX: ALCOHOL LIVER CIRRHOSIS, ESAPHAGEAL VARICES, GI BLEED
[2022-12-14 09:20] LABS: BASOPHILS # (AUTO) 0.1 K/uL (0.00-0.22); EOSINOPHILS # (AUTO) 0.4 K/uL (0-0.4); EOSINOPHILS % (AUTO) 6.6 % (0.0-4.0); HEMATOCRIT 27.2 % (36-52); HEMOGLOBIN 8.6 g/dL (12.0-18.0); LYMPHOCYTES % (AUTO) 16.8 % (20.5-51.1); MEAN CORPUSCULAR HEMOGLOBIN 25 pg (27-31); MEAN CORPUSCULAR HGB CONC 32 g/dL (33-37); MEAN CORPUSCULAR VOLUME 78.3 fL (80-94); MONOCYTES # (AUTO) 0.6 K/uL (0.8-1.0); MONOCYTES % (AUTO) 10.8 % (1.7-9.3); NEUTROPHILS # (AUTO) 3.8 K/uL (1.8-7.7); NEUTROPHILS % (AUTO) 64.8 % (42.2-75.2); PLATELET COUNT (AUTO) 189 K/uL (140-450); RED BLOOD CELL COUNT(AUTO) 3.48 MIL/uL (4.20-6.10); WHITE BLOOD COUNT (AUTO) 5.8 K/uL (4.8-10.8)
--- NOTE | 2022-12-14 09:22 | NUR ---
LAB AT BEDSIDE FOR BLOOD DRAW COLLECT
[2022-12-14 09:30] LABS: PROTHROMBIN TIME 11.6 secs (10.8-13.4)
[2022-12-14 09:35] LABS: ALBUMIN 1.5 g/dL (3.4-5.0); ANION GAP 11.4 (8-16); CARBON DIOXIDE 18.2 mmol/L (21-32); CREATININE 1.1 mg/dL (0.6-1.3); POTASSIUM 4.6 mmol/L (3.5-5.1); TOTAL BILIRUBIN 0.4 mg/dL (0.0-1.0)
--- NOTE | 2022-12-14 09:39 | NUR ---
DR FERNANDEZ AT BEDSIDE
[2022-12-14] MEDS ORDERED: PANTOPRAZOLE 40 MG TABEC PO ONE (09:40)
[2022-12-14] MEDS ORDERED: ALBUMIN HUMAN 25% 100 ML IV ONE (11:10)
--- NOTE | 2022-12-14 11:31 | NUR ---
PT RESPONDING WELL TO PARACENTHESIS
[2022-12-14 11:32] VITALS: O2SAT 98
--- NOTE | 2022-12-14 13:01 | NUR ---
PT SLEEPING, CHEST RISE/FALL NOTED
[2022-12-14] MEDS ORDERED: PANT40EC PO (13:37)
[2022-12-14 14:15] VITALS: BP 116/61; PULSE 72; RESP 15; TEMP 98.1; O2SAT 99
--- NOTE | 2022-12-14 14:15 | NUR ---
Patient discharged with v/s stable. Written and verbal after care instructions given and explained. Patient alert, oriented and verbalized understanding of instructions. Ambulatory with steady gait. All questions addressed prior to discharge. ID band removed. Patient advised to follow up with PMD. Rx of PROTONIX given. Opportunity to ask questions provided and answered.
--- NOTE | 2022-12-14 14:21 | NUR ---
The patient's care was reviewed and supervised by [place] 05 GEORGE, RN.
== END 2022-12-14 14:15 | disposition home or self-care (01) ==
LOC: MED 08:01
DX: K70.31 Alcoholic cirrhosis of liver with ascites (principal); D64.9 Anemia, unspecified; Z79.899 Other long term (current) drug therapy; Z88.6 Allergy status to analgesic agent
CPT/HCPCS: 36415; 49083; 80053; 83690; 85025; 85610; 96365; 99285; P9046

== ENCOUNTER 2022-12-19 07:34 | Observation (INO) | payer OTHER ==
[~2022-12-19] VITALS: Ht 162.6 cm; Wt 81.6 kg
[~2022-12-19 07:34] MED LIST changes: +PANT40EC PO
[2022-12-19 07:49] VITALS: BP 125/85; PULSE 93; RESP 18; TEMP 97.4; O2SAT 100
--- NOTE | 2022-12-19 07:53 | NUR ---
pt ambulatory to bed 09
--- NOTE | 2022-12-19 08:17 | NUR ---
PATIENT PRESENTS TO ED WITH PREVIOUS HISTORY OF CIRRHOSIS OF THE LIVER. PT HAS SIGNS OF A VERY LARGE ABD. NO SIGNS OF FEVER. PT WAS HERE ON December FOR A PARENCENTISIS, PER MD GAVIN THE PT HAD 90 MLS OF FLUID REMOVED. PT STATES FLUID HAS RETURNED. DENIES DIAREHHA BUT HAS SYMPTOMS OF NAUSEA AND VOMITTING; SKIN IS YELLOW TINGED/WARM/DRY; AAOX4 WITH EVEN AND STEADY GAIT; LUNGS CLEAR BL; HR EVEN AND REGULAR; PT DENIES ANY FEVER, CP, SOB, OR COUGH AT THIS TIME; PATIENT STATES PAIN OF 9/10 AT THIS TIME; VSS; PATIENT POSITIONED FOR COMFORT; HOB ELEVATED; BEDRAILS UP X2; BED DOWN. PTS CALL LGHT WITHIN REACH. ER MADE AWARE OF PT STATUS. PMHX CIRRHOSIS OF THE LIVER ALLERGIES RUBINA
[2022-12-19 08:28] LABS: BASOPHILS # (AUTO) 0.1 K/uL (0.00-0.22); BASOPHILS % (AUTO) 1.4 % (0.0-2.0); EOSINOPHILS # (AUTO) 0.2 K/uL (0-0.4); EOSINOPHILS % (AUTO) 3.8 % (0.0-4.0); HEMATOCRIT 24.8 % (36-52); HEMOGLOBIN 8.1 g/dL (12.0-18.0); LYMPHOCYTES # (AUTO) 1.1 K/uL (2.0-11.5); LYMPHOCYTES % (AUTO) 19.1 % (20.5-51.1); MEAN CORPUSCULAR HEMOGLOBIN 25 pg (27-31); MEAN CORPUSCULAR HGB CONC 33 g/dL (33-37); MEAN CORPUSCULAR VOLUME 77.3 fL (80-94); MONOCYTES # (AUTO) 0.5 K/uL (0.8-1.0); MONOCYTES % (AUTO) 8.7 % (1.7-9.3); NEUTROPHILS # (AUTO) 3.8 K/uL (1.8-7.7); PLATELET COUNT (AUTO) 255 K/uL (140-450); RED BLOOD CELL COUNT(AUTO) 3.21 MIL/uL (4.20-6.10); RED CELL DISTRIBUTION WIDTH 25.2 % (11.6-13.7); WHITE BLOOD COUNT (AUTO) 5.7 K/uL (4.8-10.8)
[2022-12-19 08:35] VITALS: BP 115/76
[2022-12-19 08:37] VITALS: O2SAT 100
--- NOTE | 2022-12-19 08:41 | NUR ---
PT HAS BEEN SET UP FOR PARACENTESIS, PT HAS BEEN PLACED ON THE MONITOR, LABS DRAWN, O2 SET UP, AND IS RESTING COMFORYABLY UNTIL PROVIDER IS READY. CALL LIGHT WITH IN REACH.
[2022-12-19 09:00] LABS: ALBUMIN 1.9 g/dL (3.4-5.0); ANION GAP 13.6 (8-16); CREATININE 1.3 mg/dL (0.6-1.3); POTASSIUM 5.6 mmol/L (3.5-5.1); TOTAL BILIRUBIN 0.6 mg/dL (0.0-1.0)
[2022-12-19 09:20] LABS: PROTHROMBIN TIME 11.6 secs (10.8-13.4)
--- NOTE | 2022-12-19 09:56 | NUR ---
PROVIDER AT BEDSIDE PT HAVING PARENCENTISIS PROCEDURE.
--- NOTE | 2022-12-19 10:05 | NUR ---
PT PARACENTISIS STARTED . PT IS DRAINING INTO FIRST LITER. PT IS ON MONITOR. VSS WNL . CALL LIGHT WITHIN REACH OF PT.
--- NOTE | 2022-12-19 10:17 | NUR ---
No signs and symptoms of discomfort. Pt has had 1 liter of fluid removed at this time.
[2022-12-19 11:37] LABS: ANION GAP 10.4 (8-16); CREATININE 1.1 mg/dL (0.6-1.3)
[2022-12-19 12:12] LABS: POTASSIUM 6.4 mmol/L (3.5-5.1)
[2022-12-19] MEDS ORDERED: ALBUMIN HUMAN 25% 50 ML IV ONE (12:45)
[2022-12-19] MEDS ORDERED: CALCIUM GLUC 1 GM/50 mL NS BAG 50 ML IV ONE ×2 (12:45)
[2022-12-19] MEDS ORDERED: DEXTROSE 50% 50 ML SYR IVP ONE (12:45)
[2022-12-19] MEDS ORDERED: INSULIN REGULAR, HUMAN 100 UNIT/ML VIAL IVP ONE (12:45)
[2022-12-19] MEDS ORDERED: PANTOPRAZOLE 40 MG INJ VIAL IVP ONE (12:45)
--- NOTE | 2022-12-19 13:32 | NUR ---
PT IS BEING MEDICATED BY BROCK LAY, PER PROVIDERS ORDERS.
[2022-12-19 17:44] VITALS: O2SAT 100
--- NOTE | 2022-12-19 17:44 | NUR ---
PT MOVED FROM BED 9 TO BED 6, PT CALM TALKING TO FRIEND AT BEDSIDE. AWAITING TELE BED ASSIGNMENT. AOX4. PT DENIES PAIN, N,V,D. NAD NOTED.
--- NOTE | 2022-12-19 18:42 | NUR ---
PT LEAVING AMA, DR VIVAS MESSAGED AND AWARE.
--- NOTE | 2022-12-19 18:44 | NUR ---
Patient does not wish to proceed with medical care recommended by DR VIVAS. Patient given information related to possible complications, up to and including , which could occur as a result of leaving hospital at this time. Patient verbalizes understanding of risks involved leaving against medical advice. Patient has signed AMA form.
[2022-12-19 19:37] VITALS: PULSE 63; RESP 15; TEMP 98.2; O2SAT 99
== END 2022-12-19 18:44 | disposition left against medical advice (07) ==
LOC: MED 07:34 → MTU 14:30
DX: R18.8 Other ascites (principal); K74.60 Unspecified cirrhosis of liver; D64.9 Anemia, unspecified; E87.5 Hyperkalemia; Z79.899 Other long term (current) drug therapy; Z53.29 Procedure and treatment not carried out because of patient's decision for other reasons
CPT/HCPCS: 36415; 80048; 80053; 83690; 85025; 85610; 93005; 96365; 96375; 99285; C9113; G0378; J0610; J1815; P9046

== ENCOUNTER 2022-12-23 10:02 | Emergency (ER) | payer OTHER ==
[~2022-12-23] VITALS: Ht 160 cm; Wt 63.5 kg
[2022-12-23 10:26] VITALS: BP 122/84; PULSE 98; RESP 16; TEMP 97.5; O2SAT 99
--- NOTE | 2022-12-23 10:36 | NUR ---
PATIENT AMBULATED TO BED 6.
[2022-12-23 11:01] VITALS: TEMP 98.1
--- NOTE | 2022-12-23 11:12 | NUR ---
PATIENT PRESENTS TO ED WITH ASCITIES TO THE ABD. PT STATES HE HAS PREVIOUS HISTORY OF CIRRHOSIS OF THE LIVER. PT STATES HE HAS NAUSEA AND VOMITTING AT 5AM. PT STATES HE HAS FEELS PRESSURE FROM THE FLUID IS GIVING HIM PAIN MIDLINE IN HIS ABD; SKIN IS YELLOW TINGED/WARM/DRY; AAOX4 WITH EVEN AND STEADY GAIT; LUNGS CLEAR BL; HR EVEN AND REGULAR; PT DENIES ANY FEVER, CP, SOB, OR COUGH AT THIS TIME; PATIENT STATES PAIN OF 9/10 AT THIS TIME; VSS; PATIENT POSITIONED FOR COMFORT; HOB ELEVATED; BEDRAILS UP X2; BED DOWN. CALL LIGHT WITH IN REACH.ER MADE AWARE OF PT STATUS. PMHX LIVER CIRRHOSIS
--- NOTE | 2022-12-23 11:19 | NUR ---
PT HAS BEEN SET UP FOR TAP OF ABD. PT HAS BEEN PLACED ON MONITOR; PT IS COMFORTABLE OFFERED PT BLANKET. PT IS RESTING ON THE MONITOR. AWAITING PROVIDERS INSTRUCTIONS.
--- NOTE | 2022-12-23 11:52 | NUR ---
Patient being evaluated by physician at bedside.
[2022-12-23 12:30] LABS: BASOPHILS # (AUTO) 0.1 K/uL (0.00-0.22); BASOPHILS % (AUTO) 1.3 % (0.0-2.0); EOSINOPHILS # (AUTO) 0.2 K/uL (0-0.4); EOSINOPHILS % (AUTO) 3.9 % (0.0-4.0); HEMOGLOBIN 8.5 g/dL (12.0-18.0); LYMPHOCYTES # (AUTO) 0.8 K/uL (2.0-11.5); LYMPHOCYTES % (AUTO) 14.8 % (20.5-51.1); MEAN CORPUSCULAR HEMOGLOBIN 25 pg (27-31); MEAN CORPUSCULAR HGB CONC 33 g/dL (33-37); MEAN CORPUSCULAR VOLUME 76.5 fL (80-94); MONOCYTES # (AUTO) 0.6 K/uL (0.8-1.0); MONOCYTES % (AUTO) 10.5 % (1.7-9.3); NEUTROPHILS # (AUTO) 3.8 K/uL (1.8-7.7); NEUTROPHILS % (AUTO) 69.5 % (42.2-75.2); PLATELET COUNT (AUTO) 256 K/uL (140-450); RED CELL DISTRIBUTION WIDTH 24.6 % (11.6-13.7); WHITE BLOOD COUNT (AUTO) 5.4 K/uL (4.8-10.8)
[2022-12-23 12:42] LABS: ALBUMIN 1.9 g/dL (3.4-5.0); ANION GAP 11.3 (8-16); CARBON DIOXIDE 20.8 mmol/L (21-32); CREATININE 1.6 mg/dL (0.6-1.3); POTASSIUM 5.1 mmol/L (3.5-5.1); TOTAL BILIRUBIN 0.7 mg/dL (0.0-1.0)
--- NOTE | 2022-12-23 12:48 | NUR ---
PT HAS SIGNED CONSENT FORM FOR PARACENTSIS. PT HAS BEEN EXPLAINED RISK AND CONCERNS OF TX. PT CONSENTS AND WISHES TO MOVE FORWARD WITH TX.
--- NOTE | 2022-12-23 13:00 | NUR ---
PT HAS BEEN SET UP FOR PARACENTISIS. PT VSS; PT IN SUPINE POSITION FOR COMFORT; PT SATES HE FEELS PRESSURE FROM THE ASCITIES; MADE AWARE.
--- NOTE | 2022-12-23 13:58 | NUR ---
PT HAS HAD 3 LITERS OF FLUID REMOVED FROM ASCITIES IN ABD. PT TOLERATING PROCEDURE WELL.
--- NOTE | 2022-12-23 14:27 | NUR ---
PTS ADB DISTENTION HAS SUBSIDED. PT HAD 10 LITERS OF FLUID REMOVED FROM PARACENTISIS. PT STATES PAIN SCALE IS AT LEVEL 3 PER PT. PT FEELS PRESSURE HAS GONE DOWN.
[2022-12-23] MEDS ORDERED: ALBUMIN HUMAN 25% 100 ML IV ONE (14:35)
--- NOTE | 2022-12-23 14:52 | NUR ---
PT HAS BEEN MEDICATED PER PROVIDERS ORDERS.
[2022-12-23 15:45] VITALS: BP 105/54; PULSE 96; RESP 14; O2SAT 98
--- NOTE | 2022-12-23 15:46 | NUR ---
Assisted primary nurse with dc. MD spoke with pt and gave order for dc. ACI given and reviewed with pt. Pt verbalized understanding. Pt is a/o x 4, vss, no ss of acute distress, breathing equal and unlabored, speech clear. IV removed and inspected for patency.
--- NOTE | 2022-12-23 15:49 | NUR ---
The patient's care was reviewed and supervised by [place] 04 ED, RN.
[2022-12-23 17:56] LABS: APPEARANCE,SPUN,BODY FLUID CLEAR (CLEAR); APPEARANCE,UNSPUN,BODY FLUID SLIGHTLY HAZY (CLEAR); SPECIMENTYPE,BODY FLUID ASCITES
[2022-12-23 17:57] LABS: COLOR,BODY FLUID LT YELLOW (LT YELLOW); TOTAL VOLUME,BODY FLUID 9000 mL
[2022-12-23 18:02] LABS: RBC, BODY FLUID 33 /cu. mm.; WBC, BODY FLUID 13 /cu. mm.
[2022-12-23 18:15] LABS: POLYNUCLEAR, BODY FLUID 23 %
[2022-12-23 18:59] LABS: GLUCOSE,BODY FLUID 111 mg/dL
== END 2022-12-23 15:45 | disposition home or self-care (01) ==
LOC: MED 10:02
DX: R18.8 Other ascites (principal); K74.60 Unspecified cirrhosis of liver; D64.9 Anemia, unspecified; Z88.6 Allergy status to analgesic agent; Z79.899 Other long term (current) drug therapy
CPT/HCPCS: 36415; 49083; 80053; 82945; 83690; 84157; 85025; 85610; 85730; 87070; 87075; 87205; 89051; 96365; 99284; P9046

== ENCOUNTER 2023-01-08 10:50 | Inpatient (IN) | payer OTHER ==
[~2023-01-08] VITALS: Ht 162.6 cm; Wt 81.6 kg
[2023-01-08] VITALS (7 sets, daily range): BP systolic 114–120; BP diastolic 55–70; PULSE 83–102; RESP 18–20; TEMP 98–98.8; O2SAT 96–100
[~2023-01-08 10:50] MED LIST changes: +HYDR-5191 PO
--- NOTE | 2023-01-08 11:00 | NUR ---
PT AMBULATED TO BED 8
--- NOTE | 2023-01-08 11:13 | NUR ---
MD DE LOS SANTOS AT BEDSIDE FOR EVALUATION
--- NOTE | 2023-01-08 11:15 | NUR ---
52YO MALE PT C/O INCREASED PRESSURED ABD PAIN AND SOB XTODAY. REPORTS INITIAL ONSET X1WEEK. ABD ROUND, FIRM, DISTENDED AND TENDER. LAST SEEN 12/23/22 FOR PARACENTESIS 9.6L COLLECTED. STATES PENDING GI CONSULT IN 30DAYS. DENIES N/V/D, FEVER, CHILLS OR CHEST PAIN. PT AAOX4, HOB POSITIONED PER COMFORT. CALL LIGHT WITHIN REACH. HX: LIVER CIRRHOSIS, ASCITES ALLERGIES: IBUPROFEN
--- NOTE | 2023-01-08 11:37 | NUR ---
WORSENING ABDOMINAL PAIN, SOB. PATIENT WITH A KNOWN HX OF LIVER CIRRHOSIS, RENAL DISEASE. HAS BEEN UNDERGOING MULTIPLE PARACENTESIS HERE.
--- NOTE | 2023-01-08 12:11 | NUR ---
lab at bedside
[2023-01-08 12:48] LABS: BASOPHILS # (AUTO) 0.1 K/uL (0.00-0.22); BASOPHILS % (AUTO) 1.3 % (0.0-2.0); EOSINOPHILS # (AUTO) 1.2 K/uL (0-0.4); EOSINOPHILS % (AUTO) 15.5 % (0.0-4.0); HEMATOCRIT 21.6 % (36-52); LYMPHOCYTES # (AUTO) 0.9 K/uL (2.0-11.5); LYMPHOCYTES % (AUTO) 12.1 % (20.5-51.1); MEAN CORPUSCULAR HEMOGLOBIN 24 pg (27-31); MEAN CORPUSCULAR HGB CONC 32 g/dL (33-37); MEAN CORPUSCULAR VOLUME 74.8 fL (80-94); MONOCYTES # (AUTO) 0.5 K/uL (0.8-1.0); MONOCYTES % (AUTO) 7.2 % (1.7-9.3); NEUTROPHILS # (AUTO) 4.8 K/uL (1.8-7.7); NEUTROPHILS % (AUTO) 63.9 % (42.2-75.2); PLATELET COUNT (AUTO) 260 K/uL (140-450); RED BLOOD CELL COUNT(AUTO) 2.89 MIL/uL (4.20-6.10); RED CELL DISTRIBUTION WIDTH 23.3 % (11.6-13.7); WHITE BLOOD COUNT (AUTO) 7.5 K/uL (4.8-10.8)
[2023-01-08 12:49] LABS: ALBUMIN 1.8 g/dL (3.4-5.0); CARBON DIOXIDE 24.6 mmol/L (21-32); CREATININE 1.7 mg/dL (0.6-1.3); POTASSIUM 5.6 mmol/L (3.5-5.1); TOTAL BILIRUBIN 0.7 mg/dL (0.0-1.0)
[2023-01-08 12:52] LABS: PROTHROMBIN TIME 11.9 secs (10.8-13.4)
[2023-01-08 13:07] LABS: HEMOGLOBIN 6.9 g/dL (12.0-18.0)
[2023-01-08 15:04] LABS: GLUCOSE,BODY FLUID 115 mg/dL
[2023-01-08] MEDS ORDERED: HYDROcodone/APAP 5/325 MG 1 TAB TAB PO PRN (16:05)
[2023-01-08] MEDS ORDERED: INSULIN REGULAR, HUMAN 100 UNIT/ML VIAL SUBQ ONE (16:05)
[2023-01-08] MEDS ORDERED: DEXTROSE 50% 50 ML SYR IVP ONE (16:05)
[2023-01-08] MEDS ORDERED: MAG SULF 2000 MG/WATER PREMIX 50 ML IV PRN (16:05)
[2023-01-08] MEDS ORDERED: SODIUM BICARBONATE 8.4% PFS 50 MEQ/50 ML SYR IVP ONE (16:05)
[2023-01-08] MEDS ORDERED: ACETAMINOPHEN 325 MG TAB PO PRN (16:05)
[2023-01-08] MEDS ORDERED: MORPHINE SULFATE 2 MG/ML SYR IVP PRN (16:05)
[2023-01-08] MEDS ORDERED: MAGNESIUM OXIDE 400 MG TAB PO PRN (16:05)
[2023-01-08] MEDS ORDERED: SODIUM ZIRCONIUM CYCLOSILICATE 10 GM POWD.PACK PO SCH (16:30)
[2023-01-08] MEDS ORDERED: cefTRIAXone 1,000 MG VIAL ONE (17:17)
[2023-01-08] MEDS ORDERED: diphenhydrAMINE 50 MG/ML VIAL IVP ONE (17:35)
[2023-01-08] MEDS ORDERED: FAMOTIDINE 20 MG/2 ML VIAL IV SCH (17:35)
[2023-01-08] MEDS ORDERED: FAMOTIDINE 20 MG/2 ML VIAL ONE (17:36)
[2023-01-08] MEDS ORDERED: diphenhydrAMINE 50 MG/ML VIAL ONE (17:36)
[2023-01-08 17:37] LABS: APPEARANCE,URINE CLEAR (CLEAR); BILIRUBIN,URINE NEGATIVE (NEGATIVE); BLOOD, URINE NEGATIVE (NEGATIVE); COLOR,URINE YELLOW (YELLOW); LEUKOCYTE ESTERASE ,URINE NEGATIVE (NEGATIVE); NITRITE, URINE NEGATIVE (NEGATIVE); UGLUCOSE NEGATIVE (NEGATIVE)
--- NOTE | 2023-01-08 17:37 | NUR ---
pt c/o itchyness. MD ZUNIGA PAGEBen. ERMD MADE AWARE
--- NOTE | 2023-01-08 17:43 | NUR ---
POSS ALLERGIC REACTION , C/O DIFF SWALLOWING , NO STRIDOR , SPO2 100% , + SLIGHT ITCHING , ANTIHISTAMINE GIVE ORDERED
--- NOTE | 2023-01-08 17:53 | NUR ---
The patient's care was reviewed and supervised by DWAYNE SANTOS RN.
--- NOTE | 2023-01-08 19:27 | NUR ---
REPORT GIVEN TO CARMITA SHAW. TRANSFER OF CARE AT THIS TIME
--- NOTE | 2023-01-08 19:36 | NUR ---
REPORT RECEIVED FROM COLIN BATES. PT LYING IN BED WITH NO S/S PAIN OR DISTRESS. CALL LIGHT WITHIN REACH. PT TO BE ADMITED.
[2023-01-08] MEDS: MIDODRINE 5 MG TAB PO SCH (20:13)
[2023-01-08 20:16] LABS: APPEARANCE,SPUN,BODY FLUID CLEAR (CLEAR); APPEARANCE,UNSPUN,BODY FLUID BLOODY (CLEAR); COLOR,BODY FLUID RED (LT YELLOW); RBC, BODY FLUID 40000 /cu. mm.; SPECIMENTYPE,BODY FLUID PARACENTESIS; TOTAL VOLUME,BODY FLUID 2950 mL; WBC, BODY FLUID 0 /cu. mm.
--- NOTE | 2023-01-08 20:28 | NUR ---
Patient will be admitted to care of DR. ZUNIGA AND BROCK SANCHES. Admited to [facility]. Will go to room 119B. Belongings list completed. Report to BROCK SANCHES.
[2023-01-08] MEDS ORDERED: OCTREOTIDE ACETATE 1000 MCG/5 ML VIAL ONE (21:48)
--- NOTE | 2023-01-08 21:49 | NUR ---
SANDOSTATIN NOT DISCONTINUED BUT GIVEN SUB-Q TO PATIENT. TOLERATED WELL.
--- NOTE | 2023-01-08 22:16 | NUR ---
Admitted from ER TO TELEMETRY UNIT , with chief complaint of ABDOMINAL PAIN , 52 y/o ,Male, Cooperative, AWAKE, A/OX3. RESPIRATION EVEN AND UNLABORED. IV SALINE LOCK AT THE RIGHT UPPER ARM AND LEFT HAND BOTH G20, PATENT AND INTACT. ABDOMEN DISTENDED, HAD PARACENTESIS PER PT IN ER TODAY, ABLE TO TAKE OUT 5 LITERS. BLOOD TRANSFUSION OF 1 UNIT PACKED CELLS ADMINISTERED IN ER PER MAINTENANCE DEPARTMENT MANAGER. NO EDEMA NOTED ON BILATERAL LOWER EXTREMITIES. HEAD TO TOE ASSESSMENT DONE WITH ARJUN RN, SKIN IS INTACT. SINUS RHYTHM ON TELE MONITORING. DENIES PAIN 0/10.oriented to call light, bed, phone,television, bathroom, smoking policy,visiting hours, procedures, ID bracelet on. Belongings list checked.
[2023-01-08] MEDS: ALBUMIN HUMAN 25% 100 ML IV SCH ×2 (22:38→22:39)
--- NOTE | 2023-01-08 22:39 | NUR ---
ALBUMIN IVPB ADMINISTERED BY ARJUN GUTIÉRREZ.
[2023-01-08] MEDS: OCTREOTIDE ACETATE 100 MCG/ML VIAL SUBQ SCH (22:41)
--- NOTE | 2023-01-08 22:52 | NUR ---
C/O NAUSEA AND VOMITING - WILL MEDICATE . CALL LIGHT WITHIN REACH , PT ON SEMI HIGH BACK REST , AAOX4 , WILL CONT. TO MONITOR
[2023-01-08] MEDS: ONDANSETRON 4 MG/2 ML VIAL IVP PRN (23:00)
--- NOTE | 2023-01-08 23:42 | NUR ---
RESTING IN BED, EYES CLOSED. NO NAUSEA AND VOMITING NOTED.
[2023-01-09] VITALS (11 sets, daily range): BP systolic 100–114; BP diastolic 54–69; PULSE 75–97; RESP 16–22; TEMP 97.6–98.6; O2SAT 95–100
--- NOTE | 2023-01-09 02:00 | NUR ---
SLEEPING COMFORTABLY IN BED. RESPIRATION EVEN AND UNLABORED.
--- NOTE | 2023-01-09 04:00 | NUR ---
SINUS RHYTHM ON TELE MONITORING. NO COMPLAINT OF PAIN 0/10.
[2023-01-09] MEDS: OCTREOTIDE ACETATE 100 MCG/ML VIAL SUBQ SCH ×3 (05:00→21:34)
--- NOTE | 2023-01-09 05:20 | NUR ---
SANDOSTATIN 1 MG SUB-Q NOT DISCONTINUED BUT ADMINISTERED TO PATIENT. SCANNING ERROR DUE TO SANDOSTATIN WAS OVERRIDE AND THERE ARE TWO SANDOSTATIN APPEARING IN THE EMAR, SCHEDULED AND THE OVERRIDE.
[2023-01-09 05:22] LABS: BASOPHILS # (AUTO) 0.1 K/uL (0.00-0.22); BASOPHILS % (AUTO) 1.6 % (0.0-2.0); EOSINOPHILS % (AUTO) 13.7 % (0.0-4.0); HEMATOCRIT 22.8 % (36-52); HEMOGLOBIN 7.6 g/dL (12.0-18.0); LYMPHOCYTES # (AUTO) 0.8 K/uL (2.0-11.5); LYMPHOCYTES % (AUTO) 11.8 % (20.5-51.1); MEAN CORPUSCULAR HEMOGLOBIN 25 pg (27-31); MEAN CORPUSCULAR HGB CONC 33 g/dL (33-37); MEAN CORPUSCULAR VOLUME 75.6 fL (80-94); MONOCYTES # (AUTO) 0.4 K/uL (0.8-1.0); MONOCYTES % (AUTO) 5.8 % (1.7-9.3); NEUTROPHILS # (AUTO) 4.9 K/uL (1.8-7.7); NEUTROPHILS % (AUTO) 67.1 % (42.2-75.2); PLATELET COUNT (AUTO) 200 K/uL (140-450); RED BLOOD CELL COUNT(AUTO) 3.01 MIL/uL (4.20-6.10); WHITE BLOOD COUNT (AUTO) 7.2 K/uL (4.8-10.8)
[2023-01-09] MEDS: OCTREOTIDE ACETATE 1000 MCG/5 ML VIAL ONE ×2 (05:24→05:50)
--- NOTE | 2023-01-09 06:00 | NUR ---
OBTAINED UA FOR URINE TEST. SENT TO LABORATORY.
[2023-01-09] MEDS: ALBUMIN HUMAN 25% 100 ML IV SCH ×2 (06:02→15:09)
[2023-01-09 06:04] LABS: ALBUMIN 1.9 g/dL (3.4-5.0); ANION GAP 11.7 (8-16); CARBON DIOXIDE 21.9 mmol/L (21-32); CREATININE 1.3 mg/dL (0.6-1.3); MAGNESIUM 2.4 mg/dL (1.8-2.4); TOTAL BILIRUBIN 4.1 mg/dL (0.0-1.0)
[2023-01-09 06:16] LABS: POTASSIUM 6.6 mmol/L (3.5-5.1)
--- NOTE | 2023-01-09 06:42 | NUR ---
INFORMED DR ABEBE LOONEY, PATIENT K LEVEL INCREASED FROM 5.6 YESTERDAY TO 6.6 TODAY. ORDER ONE TIME DOSE AND TID LOKELMA. ALSO ORDERED 1 GM CA GLUCONATE, 1 AMP SODIUM BICARB, 10 UNITS REGULAR INSULIN, 1AMP D50 AND 1 ALBUTEROL BREATHING TREATMENT
[2023-01-09] MEDS ORDERED: CALCIUM GLUC 1 GM/50 mL NS BAG 50 ML IV SCH (07:09)
[2023-01-09] MEDS ORDERED: INSULIN REGULAR, HUMAN 100 UNIT/ML VIAL IVP SCH (07:15)
[2023-01-09] MEDS ORDERED: DEXTROSE 50% 50 ML SYR IVP SCH (07:15)
[2023-01-09] MEDS ORDERED: SODIUM BICARBONATE 8.4% PFS 50 MEQ/50 ML SYR IVP SCH (07:30)
--- NOTE | 2023-01-09 07:35 | NUR ---
ENDORSED TO DENNIS GUTIÉRREZ FOR CONTINUITY OF CARE.
[2023-01-09] MEDS: ALBUTEROL 0.083% 2.5 MG/3 ML NEBU INH SCH ×5 (07:39→23:00)
[2023-01-09] MEDS ORDERED: NON-FORMULARY ITEM (Lactulose 30 ML) PO SCH (09:00)
[2023-01-09] MEDS: MIDODRINE 5 MG TAB PO SCH ×3 (09:02→21:33)
--- NOTE | 2023-01-09 09:05 | NUR ---
PATIENT HAS BEEN SCREENED AND CATEGORIZED LOW NUTRITION RISK. PATIENT WILL BE SEEN WITHIN 7 DAYS OF ADMISSION. 01/15/[address]
[2023-01-09] MEDS: LACTULOSE 20 GM/30 ML UDC PO SCH ×3 (10:53→18:38)
[2023-01-09] MEDS: SODIUM ZIRCONIUM CYCLOSILICATE 10 GM POWD.PACK PO SCH ×3 (10:53→18:38)
[2023-01-09] MEDS: PANTOPRAZOLE 40 MG TABEC PO SCH (10:54)
--- NOTE | 2023-01-09 12:15 | NUR ---
DC PLANNIN YRS OLD MALE PATIENT WAS ADMITTED FROM HOME WITH A DX OF ANEMIA. H/H ON ADMISSION 6.9/21.6 AND NA+ LEVEL 125 PATIENT HAS A HX OF LIVER CIRRHOSIS ,ASCITES. PT UNDERWENT PARACENTESIS WITH 7LFLUID REMOVED. RENAL US SHOWED ABDOMINAL ASCITES. TRANSFUSED 1 UNIT PRBC H/H POST TRANSFUSION 7.6/22.8. ADMINISTERED IV ALBUMEN AND IV ABX ROCEPHIN AND CONTINUED HOME MEDS. CONSULTED WITH NEPHRO. DC PLAN TO GO HOME WHEN STABLE. CM TO FOLLOW Addendum: 01/10/23 at 1121 by KANE LORENZO CM RECEIVED ORDER TO SETUP A FOLLOW UP APPOINTMENT WITH DR. ABEBE LOONEY IN TWO WEEKS CALLED LOCATED AT [address] [id number]. SPOKE WITH [facility] WHO SAID THAT THEY WOULD BE CONTACTING THE PATIENT DIRECTLY TO SCHEDULE THE FOLLOW UP APPOINTMENT. WENT TO BEDSIDE BUT PATIENT WAS IN DEEP SLEEP SO RELAYED ABOVE INFORMATION TO NURSE NEEMA.
[2023-01-09 12:56] LABS: ANION GAP 10.1 (8-16); CARBON DIOXIDE 23.9 mmol/L (21-32); CREATININE 1.3 mg/dL (0.6-1.3)
[2023-01-09] MEDS: ONDANSETRON 4 MG/2 ML VIAL IVP PRN ×2 (14:48→21:36)
--- NOTE | 2023-01-09 17:16 | NUR ---
ASSESSED PT THIS MORNING. PATIENT STATED HE WAS HAVING SOME DIFFICULTY BREATHING, BUT NO DISTRESS WAS NOTICEABLE - RR 18, HR 78, AND O2 SATURATION 96. PT ALSO STATED HE WAS VERY TIRED. AFTER FIRST TREATMENT, PT STATED WAS EASIER TO BREATH. PT NOT GIVEN THIRD TXN AT 1500 BECAUSE HE WAS SLEEPING AND HE WANTED TO REST. AT THAT TIME HIS O2 SATURATION WAS 100% AND NO RESPIRATORY DISTRESS WAS NOTED.LEFT PT RESTING. WILL CONTINUE TO MONITOR PT.
[2023-01-10] VITALS (7 sets, daily range): BP systolic 105–116; BP diastolic 57–69; PULSE 74–101; RESP 16–19; TEMP 97.8–98.6; O2SAT 94–100
--- NOTE | 2023-01-10 | NUR ---
PT STATED HE FEELS VERY NAUSEOUS AND THINKS HE HAS BEEN TAKING TOO MANY MEDICATIONS AND DOESNT WANT TO TAKE ANYMORE UNTIL HE FEELS BETTER. RN AWARE OF NAUSEA AND STOMACH PAIN. PT BILAT BS CLEAR NO SOB NO WHEEZING SPO2 94% ON ROOM AIR. PT CALL LIGHT AT BEDSIDE WITHIN REACH.
[2023-01-10] MEDS: ALBUTEROL 0.083% 2.5 MG/3 ML NEBU INH SCH ×4 (03:00→15:00)
[2023-01-10] MEDS: OCTREOTIDE ACETATE 100 MCG/ML VIAL SUBQ SCH ×2 (05:29→13:00)
[2023-01-10 05:52] LABS: BASOPHILS # (AUTO) 0.1 K/uL (0.00-0.22); BASOPHILS % (AUTO) 0.8 % (0.0-2.0); EOSINOPHILS # (AUTO) 0.7 K/uL (0-0.4); EOSINOPHILS % (AUTO) 8.1 % (0.0-4.0); HEMOGLOBIN 7.9 g/dL (12.0-18.0); LYMPHOCYTES # (AUTO) 0.8 K/uL (2.0-11.5); LYMPHOCYTES % (AUTO) 9.3 % (20.5-51.1); MEAN CORPUSCULAR HEMOGLOBIN 25 pg (27-31); MEAN CORPUSCULAR HGB CONC 33 g/dL (33-37); MEAN CORPUSCULAR VOLUME 75.1 fL (80-94); MONOCYTES # (AUTO) 0.5 K/uL (0.8-1.0); MONOCYTES % (AUTO) 6.4 % (1.7-9.3); NEUTROPHILS # (AUTO) 6.3 K/uL (1.8-7.7); NEUTROPHILS % (AUTO) 75.4 % (42.2-75.2); PLATELET COUNT (AUTO) 201 K/uL (140-450); RED CELL DISTRIBUTION WIDTH 21.5 % (11.6-13.7); WHITE BLOOD COUNT (AUTO) 8.4 K/uL (4.8-10.8)
[2023-01-10 06:12] LABS: ALBUMIN 2.3 g/dL (3.4-5.0); ANION GAP 12.6 (8-16); CARBON DIOXIDE 24.4 mmol/L (21-32); CREATININE 1.5 mg/dL (0.6-1.3); MAGNESIUM 2.3 mg/dL (1.8-2.4); TOTAL BILIRUBIN 1.4 mg/dL (0.0-1.0)
--- NOTE | 2023-01-10 07:00 | NUR ---
RECEIVED BEDSIDE REPORT FROM NIGHTSHIFT NURSE. PT IS ASLEEP IN BED, STABLE, NO SIGNS OF DISTRESS, NO REPORTS OF PAIN/DISCOMFORT. PT HAS CALL LIGHT WITHIN REACH. NO FURTHER NEEDS ARE TO BE MET AT THIS TIME. WILL CONTINUE WITH PT CARE.
[2023-01-10] MEDS: MIDODRINE 5 MG TAB PO SCH ×2 (07:24→13:00)
--- NOTE | 2023-01-10 07:33 | NUR ---
PT WAS SLEEPING THIS MORNING. WILL GO BACK LATER FOR BREATHING TREATMENT. NO DISTRESS NOTED, NO SOB NOTED. EQUAL CHEST RISE. CALL LIGHT WITHIN REACH OF PATIENT. WILL CONTINUE TO MONITOR.
[2023-01-10] MEDS: PANTOPRAZOLE 40 MG TABEC PO SCH (09:21)
[2023-01-10] MEDS: LACTULOSE 20 GM/30 ML UDC PO SCH ×2 (09:21→13:00)
[2023-01-10] MEDS: SODIUM ZIRCONIUM CYCLOSILICATE 10 GM POWD.PACK PO SCH ×2 (09:21→13:00)
[2023-01-10] MEDS ORDERED: CIPR500T4 PO (09:43)
--- NOTE | 2023-01-10 11:04 | NUR ---
PT REFUSED BREATHING TREATMENT, HE WOULD LIKE TO SLEEP. NO SOB, NO DISTRESS NOTED. CLEAR BREATH SOUNDS. CALL LIGHT WITHIN REACH OF PATIENT. WILL CONTINUE TO MONITOR THROUGHOUT SHIFT.
--- NOTE | 2023-01-10 15:16 | NUR ---
PT STATES THAT HE IS NOT SHORT OF BREATH AND FEELS WELL. HE REFUSED BREATHING TREATMENT AT THIS TIME. CALL LIGHT WITHIN REACH. WILL CONTINUE TO MONITOR.
--- NOTE | 2023-01-10 17:30 | NUR ---
PT INFORMED OF DC. DISCHARGE EDUCATION PROVIDED. PT VERBALIZE UNDERSTANDING. IV AND ID BAND WAS REMOVED. PT LEFT UNIT WITH BROTHER. STABLE UPON LEAVING. NO SIGNS OF DISTRESS.
[2023-01-11 15:05] LABS: ALBUMIN,BODY FLUID 0.2 g/dL
== END 2023-01-10 17:40 | disposition home or self-care (01) | DRG 280 ==
LOC: MED 10:50 → MTU 16:05
PROVIDERS: ADMIT Internal Medicine; ATTEND Internal Medicine
PROC: 0W9G3ZZ Drainage of Peritoneal Cavity, Percutaneous Approach (ICD-10-PCS; principal; 2023-01-08)
PROC: 30233N1 Transfusion of Nonautologous Red Blood Cells into Peripheral Vein, Percutaneous Approach (ICD-10-PCS; 2023-01-08)
DX: K70.31 Alcoholic cirrhosis of liver with ascites (principal); N17.9 Acute kidney failure, unspecified; E44.0 Moderate protein-calorie malnutrition; R65.10 Systemic inflammatory response syndrome (SIRS) of non-infectious origin without acute organ dysfunction; E87.1 Hypo-osmolality and hyponatremia; D50.9 Iron deficiency anemia, unspecified; E87.5 Hyperkalemia; N18.9 Chronic kidney disease, unspecified; Z88.6 Allergy status to analgesic agent; Z79.899 Other long term (current) drug therapy; Z68.30 Body mass index [BMI] 30.0-30.9, adult
CPT/HCPCS: 36415; 36430; 76770; 80048; 80053; 81003; 82945; 83540; 83605; 83690; 83735; 84157; 84300; 85025; 85610; 85730; 86886; 86900; 86901; 86920; 87040; 87070; 87075; 87081; 87205; 89051; 94640; 96365; 96372; 96375; 99291; J0610; J0696; J1200; J1815; J2354; J2405; J3490; J7060; J7613; P9016; P9046; Q0092

== ENCOUNTER 2023-01-15 20:10 | Emergency (ER) | payer OTHER ==
[~2023-01-15] VITALS: Ht 162.6 cm; Wt 81.6 kg
[~2023-01-15 20:10] MED LIST changes: -BUME1TAB92 PO; +CIPR500T4 PO; -PANT40EC56 PO
[2023-01-15 20:34] VITALS: BP 126/73; PULSE 111; RESP 17; TEMP 98.6; O2SAT 100
--- NOTE | 2023-01-15 20:36 | NUR ---
TO LOBBY A/W BED AMBULATORY
--- NOTE | 2023-01-15 22:17 | NUR ---
PT CALLED FOR EXAM. NO ANSWER.
--- NOTE | 2023-01-15 23:00 | NUR ---
PATIENT LEFT WITHOUT BEING SEEN BY DR. PÉREZ. NO FURTHER CARE PROVIDED FOR PATIENT.
== END 2023-01-15 23:00 | disposition left against medical advice (07) ==
LOC: MED 20:10
DX: Z53.21 Procedure and treatment not carried out due to patient leaving prior to being seen by health care provider (principal)
CPT/HCPCS: 99281

== ENCOUNTER 2023-01-16 06:45 | Emergency (ER) | payer MEDICAID, OTHER ==
[~2023-01-16] VITALS: Ht 162.6 cm; Wt 81.6 kg
[2023-01-16 06:53] VITALS: BP 125/73; PULSE 99; RESP 16; TEMP 98.2; O2SAT 98
[2023-01-16] MEDS ORDERED: ALBUMIN HUMAN 5 % 500 ML IV ONE (07:00)
[2023-01-16 07:15] VITALS: PULSE 91; TEMP 98.2; O2SAT 99
[2023-01-16] MEDS ORDERED: fentaNYL citrate 0.05 MG/ML VIAL IVP ONE (07:45)
[2023-01-16 09:07] VITALS: BP 144/66; RESP 20
== END 2023-01-16 07:47 | disposition home or self-care (01) ==
LOC: MED 06:45
DX: R18.8 Other ascites (principal); K74.60 Unspecified cirrhosis of liver; Z79.899 Other long term (current) drug therapy
CPT/HCPCS: 49083; 96365; 96366; 96367; 96375; 99285; J3010; P9041

== ENCOUNTER 2023-01-20 19:09 | Inpatient (IN) | payer MEDICAID ==
[~2023-01-20] VITALS: Ht 162.6 cm; Wt 78.0 kg
[2023-01-20 19:49] VITALS: BP 118/58; PULSE 96; RESP 16; TEMP 98.1; O2SAT 99
[2023-01-20 21:16] VITALS: O2SAT 99
[2023-01-20 23:35] VITALS: O2SAT 99
[2023-01-21 00:19] LABS: BASOPHILS # (AUTO) 0.1 K/uL (0.00-0.22); EOSINOPHILS # (AUTO) 0.4 K/uL (0-0.4); EOSINOPHILS % (AUTO) 6.5 % (0.0-4.0); HEMATOCRIT 21.5 % (36-52); LYMPHOCYTES # (AUTO) 0.7 K/uL (2.0-11.5); LYMPHOCYTES % (AUTO) 9.7 % (20.5-51.1); MEAN CORPUSCULAR HEMOGLOBIN 25 pg (27-31); MEAN CORPUSCULAR HGB CONC 32 g/dL (33-37); MEAN CORPUSCULAR VOLUME 76.7 fL (80-94); MONOCYTES # (AUTO) 0.6 K/uL (0.8-1.0); MONOCYTES % (AUTO) 8.3 % (1.7-9.3); NEUTROPHILS % (AUTO) 73.5 % (42.2-75.2); PLATELET COUNT (AUTO) 249 K/uL (140-450); RED BLOOD CELL COUNT(AUTO) 2.81 MIL/uL (4.20-6.10); RED CELL DISTRIBUTION WIDTH 22.3 % (11.6-13.7); WHITE BLOOD COUNT (AUTO) 6.8 K/uL (4.8-10.8)
[2023-01-21 00:57] LABS: ANION GAP 11.9 (8-16); CALCIUM 7.2 mg/dL (8.5-10.1); CARBON DIOXIDE 21.7 mmol/L (21-32); CREATININE 1.4 mg/dL (0.6-1.3); POTASSIUM 5.6 mmol/L (3.5-5.1); TOTAL BILIRUBIN 0.6 mg/dL (0.0-1.0); TOTAL PROTEIN, SERUM 5.8 g/dL (6.4-8.2)
[2023-01-21] MEDS ORDERED: fentaNYL citrate 0.05 MG/ML VIAL IVP ONE (01:00)
[2023-01-21] MEDS ORDERED: ALBUMIN HUMAN 5 % 250 ML IV ONE (01:40)
[2023-01-21 02:41] VITALS: O2SAT 99
[2023-01-21] MEDS ORDERED: FURO-570 PO (03:19)
[2023-01-21] MEDS ORDERED: BUME1TAB92 PO (03:19)
[2023-01-21 05:33] VITALS: BP 116/67; PULSE 78; RESP 20; TEMP 97.6; O2SAT 100
[2023-01-21 06:22] VITALS: PULSE 94
[2023-01-21 08:00] VITALS: BP 100/57; PULSE 78; RESP 17; TEMP 97.2; O2SAT 100
[2023-01-21 08:04] LABS: APPEARANCE,UNSPUN,BODY FLUID HAZY (CLEAR); SPECIMENTYPE,BODY FLUID PARACENTESIS
[2023-01-21 08:05] LABS: APPEARANCE,SPUN,BODY FLUID CLEAR (CLEAR); COLOR,BODY FLUID YELLOW (LT YELLOW); TOTAL VOLUME,BODY FLUID 1300 mL
[2023-01-21 08:08] LABS: GLUCOSE,BODY FLUID 105 mg/dL
[2023-01-21 09:09] LABS: PROTEIN, BODY FLUID 0.8 g/dL
[2023-01-21 09:35] LABS: RBC, BODY FLUID 312 /cu. mm.; WBC, BODY FLUID 11 /cu. mm.
[2023-01-21 09:36] LABS: POLYNUCLEAR, BODY FLUID 20 %
[2023-01-21] MEDS ORDERED: POTASSIUM CHLORIDE 10 MEQ TABER PO PRN (11:40)
[2023-01-21] MEDS ORDERED: MAG SULF 2000 MG/WATER PREMIX 50 ML IV PRN (11:40)
[2023-01-21] MEDS: LACTULOSE 20 GM/30 ML UDC PO SCH ×2 (14:14→18:14)
[2023-01-21] MEDS ORDERED: ACETAMINOPHEN 325 MG TAB PO PRN (15:20)
[2023-01-21 16:00] VITALS: BP 106/66; PULSE 83; RESP 18; TEMP 97.7; O2SAT 100
[2023-01-21 20:00] VITALS: BP 112/69; PULSE 88; RESP 18; TEMP 98.1; O2SAT 99
[2023-01-21 20:08] LABS: BASOPHILS % (AUTO) 0.7 % (0.0-2.0); EOSINOPHILS # (AUTO) 0.7 K/uL (0-0.4); EOSINOPHILS % (AUTO) 10.3 % (0.0-4.0); HEMATOCRIT 25.8 % (36-52); HEMOGLOBIN 8.5 g/dL (12.0-18.0); LYMPHOCYTES # (AUTO) 0.6 K/uL (2.0-11.5); MEAN CORPUSCULAR HEMOGLOBIN 26 pg (27-31); MEAN CORPUSCULAR HGB CONC 33 g/dL (33-37); MEAN CORPUSCULAR VOLUME 78.7 fL (80-94); MONOCYTES # (AUTO) 0.5 K/uL (0.8-1.0); MONOCYTES % (AUTO) 8.3 % (1.7-9.3); NEUTROPHILS # (AUTO) 4.6 K/uL (1.8-7.7); NEUTROPHILS % (AUTO) 70.7 % (42.2-75.2); PLATELET COUNT (AUTO) 204 K/uL (140-450); RED BLOOD CELL COUNT(AUTO) 3.27 MIL/uL (4.20-6.10); RED CELL DISTRIBUTION WIDTH 20.9 % (11.6-13.7); WHITE BLOOD COUNT (AUTO) 6.5 K/uL (4.8-10.8)
[2023-01-22 06:11] LABS: BASOPHILS # (AUTO) 0.1 K/uL (0.00-0.22); BASOPHILS % (AUTO) 1.3 % (0.0-2.0); EOSINOPHILS # (AUTO) 0.8 K/uL (0-0.4); EOSINOPHILS % (AUTO) 11.9 % (0.0-4.0); HEMATOCRIT 25.5 % (36-52); HEMOGLOBIN 8.5 g/dL (12.0-18.0); LYMPHOCYTES # (AUTO) 0.7 K/uL (2.0-11.5); LYMPHOCYTES % (AUTO) 10.9 % (20.5-51.1); MEAN CORPUSCULAR HEMOGLOBIN 26 pg (27-31); MEAN CORPUSCULAR HGB CONC 33 g/dL (33-37); MEAN CORPUSCULAR VOLUME 78.4 fL (80-94); MONOCYTES # (AUTO) 0.6 K/uL (0.8-1.0); MONOCYTES % (AUTO) 9.5 % (1.7-9.3); NEUTROPHILS # (AUTO) 4.4 K/uL (1.8-7.7); NEUTROPHILS % (AUTO) 66.4 % (42.2-75.2); PLATELET COUNT (AUTO) 207 K/uL (140-450); RED BLOOD CELL COUNT(AUTO) 3.25 MIL/uL (4.20-6.10); RED CELL DISTRIBUTION WIDTH 20.7 % (11.6-13.7); WHITE BLOOD COUNT (AUTO) 6.6 K/uL (4.8-10.8)
[2023-01-22 06:30] LABS: ANION GAP 11.3 (8-16); CALCIUM 7.4 mg/dL (8.5-10.1); CARBON DIOXIDE 20.1 mmol/L (21-32); CREATININE 1.1 mg/dL (0.6-1.3); POTASSIUM 5.4 mmol/L (3.5-5.1)
[2023-01-22] MEDS ORDERED: PANTOPRAZOLE 40 MG TABEC PO SCH (06:30)
[2023-01-22 06:35] LABS: MAGNESIUM 2.2 mg/dL (1.8-2.4); PHOSPHORUS 3.9 mg/dL (2.5-4.9)
[2023-01-22 08:00] VITALS: BP 111/67; PULSE 88; PULSE 91; RESP 18; TEMP 98.7; O2SAT 99
[2023-01-22] MEDS ORDERED: BUMETANIDE 1 MG TAB PO SCH (09:00)
[2023-01-22] MEDS ORDERED: FUROSEMIDE 40 MG TAB PO SCH (09:00)
[2023-01-22] MEDS ORDERED: SODIUM ZIRCONIUM CYCLOSILICATE 10 GM POWD.PACK PO SCH (09:30)
[2023-01-22] MEDS: LACTULOSE 20 GM/30 ML UDC PO SCH ×2 (09:41→12:23)
== END 2023-01-22 12:50 | disposition home or self-care (01) | DRG 280 ==
LOC: MED 19:09 → MTU 01-21 05:11
PROC: 0W9G3ZZ Drainage of Peritoneal Cavity, Percutaneous Approach (ICD-10-PCS; principal; 2023-01-21)
PROC: 30233N1 Transfusion of Nonautologous Red Blood Cells into Peripheral Vein, Percutaneous Approach (ICD-10-PCS; 2023-01-21)
DX: K70.31 Alcoholic cirrhosis of liver with ascites (principal); N17.0 Acute kidney failure with tubular necrosis; E43 Unspecified severe protein-calorie malnutrition; E87.1 Hypo-osmolality and hyponatremia; I50.9 Heart failure, unspecified; I11.0 Hypertensive heart disease with heart failure; D64.9 Anemia, unspecified; R74.01 Elevation of levels of liver transaminase levels; E87.5 Hyperkalemia; Z88.1 Allergy status to other antibiotic agents; Z79.899 Other long term (current) drug therapy; Z68.29 Body mass index [BMI] 29.0-29.9, adult
CPT/HCPCS: 36415; 49083; 80048; 80053; 82945; 83735; 84100; 84157; 85025; 86886; 86900; 86901; 86920; 87081; 89051; 96365; 96366; 96375; 99285; J3010; P9016; P9041

== ENCOUNTER 2023-01-26 09:58 | Emergency (ER) | payer MEDICAID ==
[~2023-01-26] VITALS: Ht 170.2 cm; Wt 74.8 kg
[~2023-01-26 09:58] MED LIST changes: +BUME1TAB92 PO; +FURO-570 PO
[2023-01-26 10:23] VITALS: BP 134/79; PULSE 101; RESP 17; TEMP 97.4; O2SAT 97
[2023-01-26 11:03] VITALS: O2SAT 97
[2023-01-26 11:15] VITALS: PULSE 77; RESP 16; O2SAT 100
[2023-01-26 13:11] VITALS: TEMP 97.4
[2023-01-26 13:12] VITALS: O2SAT 99
[2023-01-26 14:41] LABS: BASOPHILS # (AUTO) 0.1 K/uL (0.00-0.22); BASOPHILS % (AUTO) 1.2 % (0.0-2.0); EOSINOPHILS # (AUTO) 0.8 K/uL (0-0.4); EOSINOPHILS % (AUTO) 12.7 % (0.0-4.0); HEMATOCRIT 25.8 % (36-52); HEMOGLOBIN 8.5 g/dL (12.0-18.0); LYMPHOCYTES # (AUTO) 0.8 K/uL (2.0-11.5); LYMPHOCYTES % (AUTO) 11.8 % (20.5-51.1); MEAN CORPUSCULAR HEMOGLOBIN 26 pg (27-31); MEAN CORPUSCULAR HGB CONC 33 g/dL (33-37); MEAN CORPUSCULAR VOLUME 79.5 fL (80-94); MONOCYTES # (AUTO) 0.6 K/uL (0.8-1.0); MONOCYTES % (AUTO) 9.3 % (1.7-9.3); NEUTROPHILS # (AUTO) 4.2 K/uL (1.8-7.7); PLATELET COUNT (AUTO) 263 K/uL (140-450); RED BLOOD CELL COUNT(AUTO) 3.24 MIL/uL (4.20-6.10); RED CELL DISTRIBUTION WIDTH 21.1 % (11.6-13.7); WHITE BLOOD COUNT (AUTO) 6.5 K/uL (4.8-10.8)
[2023-01-26 15:02] LABS: ALBUMIN 1.8 g/dL (3.4-5.0); ANION GAP 11.9 (8-16); CALCIUM 7.4 mg/dL (8.5-10.1); CARBON DIOXIDE 21.3 mmol/L (21-32); CREATININE 1.2 mg/dL (0.6-1.3); POTASSIUM 4.2 mmol/L (3.5-5.1); TOTAL PROTEIN, SERUM 5.8 g/dL (6.4-8.2)
[2023-01-26 15:22] LABS: INR 1.14 (0.8-1.2); PARTIAL THROMBOPLASTIN TIME 28.1 secs (22-35.6); PROTHROMBIN TIME 11.9 secs (10.8-13.4)
[2023-01-26] MEDS ORDERED: LIDOCAINE MPF 1% 5 ML ONE ×2 (15:51→15:53)
[2023-01-26] MEDS ORDERED: LIDOCAINE 1% 500 MG/ 50 ML VIAL INJ ONE ×2 (15:55)
[2023-01-26] MEDS ORDERED: FURO-572 PO (17:43)
[2023-01-26] MEDS ORDERED: ALBUMIN HUMAN 25% 100 ML IV ONE (17:45)
[2023-01-26 21:20] VITALS: BP 105/64; PULSE 96; RESP 13; O2SAT 100
== END 2023-01-26 21:20 | disposition home or self-care (01) ==
LOC: MED 09:58
DX: R18.8 Other ascites (principal); Z79.899 Other long term (current) drug therapy; Z88.6 Allergy status to analgesic agent
CPT/HCPCS: 36415; 49083; 80053; 85025; 85610; 85730; 96365; 96366; 99285; J2001; P9046

== ENCOUNTER 2023-02-02 14:06 | Emergency (ER) | payer MEDICAID ==
[~2023-02-02] VITALS: Ht 165.1 cm; Wt 81.6 kg
[~2023-02-02 14:06] MED LIST changes: +FURO-572 PO
[2023-02-02 14:26] VITALS: BP 122/71; PULSE 110; RESP 16; TEMP 97.3; O2SAT 99
[2023-02-02 18:03] VITALS: O2SAT 99
[2023-02-02] MEDS ORDERED: traMADol 50 MG TAB PO ONE (18:10)
[2023-02-02 19:02] VITALS: BP 109/64; PULSE 91; RESP 14; TEMP 97.8
== END 2023-02-02 19:04 | disposition home or self-care (01) ==
LOC: MED 14:06
DX: R18.8 Other ascites (principal); R10.9 Unspecified abdominal pain; R11.10 Vomiting, unspecified; Z88.6 Allergy status to analgesic agent; Z79.899 Other long term (current) drug therapy
CPT/HCPCS: 49083; 99284

== ENCOUNTER 2023-02-08 14:03 | Emergency (ER) | payer MEDICAID ==
[~2023-02-08] VITALS: Ht 162.6 cm; Wt 74.5 kg
[2023-02-08 14:33] VITALS: BP 101/70; PULSE 102; RESP 16; TEMP 98; O2SAT 100
[2023-02-08 14:55] VITALS: O2SAT 100
[2023-02-08 15:14] LABS: BASOPHILS # (AUTO) 0.1 K/uL (0.00-0.22); BASOPHILS % (AUTO) 0.8 % (0.0-2.0); EOSINOPHILS # (AUTO) 0.4 K/uL (0-0.4); EOSINOPHILS % (AUTO) 5.7 % (0.0-4.0); HEMATOCRIT 24.8 % (36-52); HEMOGLOBIN 8.1 g/dL (12.0-18.0); LYMPHOCYTES # (AUTO) 0.7 K/uL (2.0-11.5); LYMPHOCYTES % (AUTO) 10.2 % (20.5-51.1); MEAN CORPUSCULAR HEMOGLOBIN 26 pg (27-31); MEAN CORPUSCULAR HGB CONC 33 g/dL (33-37); MEAN CORPUSCULAR VOLUME 78.5 fL (80-94); MONOCYTES # (AUTO) 0.5 K/uL (0.8-1.0); NEUTROPHILS # (AUTO) 5.5 K/uL (1.8-7.7); NEUTROPHILS % (AUTO) 76.3 % (42.2-75.2); PLATELET COUNT (AUTO) 272 K/uL (140-450); RED BLOOD CELL COUNT(AUTO) 3.16 MIL/uL (4.20-6.10); RED CELL DISTRIBUTION WIDTH 20.2 % (11.6-13.7); WHITE BLOOD COUNT (AUTO) 7.3 K/uL (4.8-10.8)
[2023-02-08 15:40] LABS: ALBUMIN 1.8 g/dL (3.4-5.0); ANION GAP 12.4 (8-16); CALCIUM 7.3 mg/dL (8.5-10.1); CARBON DIOXIDE 20.5 mmol/L (21-32); CREATININE 1.5 mg/dL (0.6-1.3); POTASSIUM 4.9 mmol/L (3.5-5.1); TOTAL BILIRUBIN 0.8 mg/dL (0.0-1.0); TOTAL PROTEIN, SERUM 6.3 g/dL (6.4-8.2)
[2023-02-08] MEDS ORDERED: ALBUMIN HUMAN 25% 50 ML IV ONE (18:05)
[2023-02-08] MEDS ORDERED: traMADol 50 MG TAB PO ONE (18:15)
== END 2023-02-08 19:10 | disposition home or self-care (01) ==
LOC: MED 14:03
DX: R18.8 Other ascites (principal); Z88.6 Allergy status to analgesic agent; Z79.899 Other long term (current) drug therapy
CPT/HCPCS: 36415; 49083; 80053; 85025; 96365; 99285; P9046; 99284

== ENCOUNTER 2023-02-10 13:19 | Emergency (ER) | payer MEDICAID ==
[~2023-02-10] VITALS: Ht 152.4 cm; Wt 64.4 kg
[2023-02-10 13:50] VITALS: BP 102/68; PULSE 90; RESP 18; TEMP 98; O2SAT 99
== END 2023-02-10 16:00 | disposition left against medical advice (07) ==
LOC: MED 13:19
DX: R11.10 Vomiting, unspecified (principal); Z53.21 Procedure and treatment not carried out due to patient leaving prior to being seen by health care provider
CPT/HCPCS: 99281

== ENCOUNTER 2023-02-11 11:17 | Emergency (ER) | payer MEDICAID ==
[~2023-02-11] VITALS: Ht 160 cm; Wt 64.0 kg
[2023-02-11 11:27] VITALS: BP 119/67; PULSE 100; RESP 18; TEMP 97.1; O2SAT 100
[2023-02-11] MEDS ORDERED: ONDANSETRON 4 MG ODT PO ONE (11:30)
[2023-02-11] MEDS ORDERED: ONDANSETRON 4 MG/2 ML VIAL IVP ONE (11:40)
[2023-02-11 11:58] LABS: BASOPHILS # (AUTO) 0.2 K/uL (0.00-0.22); BASOPHILS % (AUTO) 1.9 % (0.0-2.0); EOSINOPHILS # (AUTO) 0.3 K/uL (0-0.4); EOSINOPHILS % (AUTO) 3.3 % (0.0-4.0); HEMATOCRIT 26.9 % (36-52); HEMOGLOBIN 8.9 g/dL (12.0-18.0); MEAN CORPUSCULAR HEMOGLOBIN 26 pg (27-31); MEAN CORPUSCULAR HGB CONC 33 g/dL (33-37); MEAN CORPUSCULAR VOLUME 78.3 fL (80-94); MONOCYTES # (AUTO) 0.5 K/uL (0.8-1.0); MONOCYTES % (AUTO) 5.8 % (1.7-9.3); NEUTROPHILS # (AUTO) 6.5 K/uL (1.8-7.7); PLATELET COUNT (AUTO) 332 K/uL (140-450); RED BLOOD CELL COUNT(AUTO) 3.44 MIL/uL (4.20-6.10); RED CELL DISTRIBUTION WIDTH 19.7 % (11.6-13.7); WHITE BLOOD COUNT (AUTO) 8.4 K/uL (4.8-10.8)
[2023-02-11 12:00] LABS: APPEARANCE,URINE CLEAR (CLEAR); BLOOD, URINE NEGATIVE (NEGATIVE); COLOR,URINE ORANGE (YELLOW); PH,URINE 5.5 (5.0-9.0); PROTEIN,URINE NEGATIVE (NEGATIVE); UGLUCOSE NEGATIVE (NEGATIVE)
[2023-02-11 12:01] LABS: BILIRUBIN,URINE NEGATIVE (NEGATIVE); LEUKOCYTE ESTERASE ,URINE NEGATIVE (NEGATIVE); NITRITE, URINE NEGATIVE (NEGATIVE); UROBILINOGEN,URINE 0.2 EU/dL (0.2 - 1)
[2023-02-11 12:16] LABS: LACTIC ACID 1.2 mmol/L (0.4-2.0)
[2023-02-11 12:24] LABS: AMPHETAMINE, URINE NEGATIVE ng/ml (NEG <=1000); BARBITURATE, URINE NEGATIVE ng/ml (NEG <=200); BENZODIAZEPINE, URINE NEGATIVE ng/mL (NEG <=200); CANNABINOID, URINE NEGATIVE ng/mL (NEG <=50); COCAINE, URINE NEGATIVE ng/mL (NEG <=300); OPIATE, URINE NEGATIVE ng/mL (NEG <=2000); PHENCYCLIDINE SCREEN,URINE NEGATIVE ng/mL (NEG <=25)
[2023-02-11 12:33] LABS: INR 1.09 (0.8-1.2); PARTIAL THROMBOPLASTIN TIME 28.1 secs (22-35.6); PROTHROMBIN TIME 11.4 secs (10.8-13.4)
[2023-02-11 12:34] LABS: ALANINE AMINOTRANSFERASE 35 U/L (12-78); ALKALINE PHOSPHATASE 373 U/L (50-136); ANION GAP 14.1 (8-16); ASPARTATE AMINOTRANSFERASE 54 U/L (15-37); CALCIUM 7.6 mg/dL (8.5-10.1); CARBON DIOXIDE 18.8 mmol/L (21-32); CHLORIDE 95 mmol/L (98-107); CREATININE 1.6 mg/dL (0.6-1.3); GFR ARICAN-AMERICAN 59 mL/min (>90); GFR NON ARICAN-AMERICAN 48 mL/min (>90); GLUCOSE 98 mg/dL (74-106); LIPASE 371 U/L (73-393); POTASSIUM 5.9 mmol/L (3.5-5.1); SODIUM SERUM 122 mmol/L (136-145); TOTAL BILIRUBIN 0.7 mg/dL (0.0-1.0); TOTAL PROTEIN, SERUM 6.5 g/dL (6.4-8.2); UREA NITROGEN, BLOOD 37 mg/dL (7-18)
[2023-02-11 12:35] LABS: ALCOHOL, BLOOD < 3 mg/dL (<10)
[2023-02-11] MEDS ORDERED: ALBUTEROL 0.083% 2.5 MG/3 ML NEBU INH ONE (13:55)
[2023-02-11] MEDS ORDERED: SODIUM ZIRCONIUM CYCLOSILICATE 10 GM POWD.PACK PO ONE (13:55)
[2023-02-11] MEDS ORDERED: CALCIUM GLUCONATE 10% 1,000 MG in NACL 0.9% 50 ML IV ONE (13:55)
[2023-02-11 13:59] VITALS: PULSE 78; RESP 16; O2SAT 100
[2023-02-11] MEDS ORDERED: CALCIUM GLUC 1 GM/50 mL NS BAG 50 ML IV ONE ×2 (14:02→20:50)
[2023-02-11 14:58] VITALS: BP 131/68; PULSE 76; RESP 18; TEMP 98; O2SAT 100
[2023-02-11 20:39] LABS: ALBUMIN 1.7 g/dL (3.4-5.0); ANION GAP 13.2 (8-16); CALCIUM 7.7 mg/dL (8.5-10.1); CREATININE 1.5 mg/dL (0.6-1.3); TOTAL BILIRUBIN 0.7 mg/dL (0.0-1.0); TOTAL PROTEIN, SERUM 5.8 g/dL (6.4-8.2)
[2023-02-11 20:43] LABS: POTASSIUM 6.2 mmol/L (3.5-5.1)
[2023-02-11] MEDS ORDERED: FUROSEMIDE 40 MG/4 ML VIAL IVP ONE (20:50)
[2023-02-11] MEDS ORDERED: INSULIN REGULAR, HUMAN 100 UNIT/ML VIAL IV ONE (20:50)
[2023-02-11] MEDS ORDERED: DEXTROSE 50% 50 ML SYR IVP ONE (20:50)
== END 2023-02-11 21:47 | disposition short-term general hospital (02) ==
LOC: MED 11:17
DX: E87.1 Hypo-osmolality and hyponatremia (principal); Z20.822 Contact with and (suspected) exposure to COVID-19; E87.5 Hyperkalemia; K70.30 Alcoholic cirrhosis of liver without ascites; N18.9 Chronic kidney disease, unspecified; Z88.5 Allergy status to narcotic agent; Z79.899 Other long term (current) drug therapy
CPT/HCPCS: 36415; 74176; 80053; 80305; 81003; 82140; 82948; 83605; 83690; 85025; 85610; 85730; 87040; 87086; 87426; 93005; 94640; 96365; 96375; 99285; G0482; J0610; J1815; J1940; J2405; J7613

== ENCOUNTER 2023-02-18 17:43 | Inpatient (IN) | payer MEDICAID ==
[~2023-02-18] VITALS: Ht 162.6 cm; Wt 68.0 kg
[2023-02-18 17:50] VITALS: BP 123/77; PULSE 105; RESP 20; TEMP 98; O2SAT 100
[2023-02-18 19:18] LABS: BASOPHILS # (AUTO) 0.1 K/uL (0.00-0.22); BASOPHILS % (AUTO) 1.3 % (0.0-2.0); EOSINOPHILS # (AUTO) 0.2 K/uL (0-0.4); EOSINOPHILS % (AUTO) 4.9 % (0.0-4.0); LYMPHOCYTES # (AUTO) 0.7 K/uL (2.0-11.5); LYMPHOCYTES % (AUTO) 14.4 % (20.5-51.1); MEAN CORPUSCULAR HEMOGLOBIN 26 pg (27-31); MEAN CORPUSCULAR HGB CONC 33 g/dL (33-37); MEAN CORPUSCULAR VOLUME 78.1 fL (80-94); MONOCYTES # (AUTO) 0.5 K/uL (0.8-1.0); MONOCYTES % (AUTO) 9.4 % (1.7-9.3); NEUTROPHILS # (AUTO) 3.5 K/uL (1.8-7.7); PLATELET COUNT (AUTO) 241 K/uL (140-450); RED CELL DISTRIBUTION WIDTH 18.9 % (11.6-13.7)
[2023-02-18 19:38] LABS: ANION GAP 13.7 (8-16); CARBON DIOXIDE 20.6 mmol/L (21-32); CREATININE 1.4 mg/dL (0.6-1.3); HEMATOCRIT 19.5 % (36-52); HEMOGLOBIN 6.4 g/dL (12.0-18.0); POTASSIUM 5.3 mmol/L (3.5-5.1)
[2023-02-18] MEDS ORDERED: ALBUMIN HUMAN 25% 50 ML IV ONE (20:20)
[2023-02-18 20:39] LABS: INR 1.11 (0.8-1.2); PARTIAL THROMBOPLASTIN TIME 26.3 secs (22-35.6); PROTHROMBIN TIME 11.6 secs (10.8-13.4)
[2023-02-18] MEDS ORDERED: DOCUSATE SODIUM 100 MG GELCAP PO PRN (22:20)
[2023-02-18] MEDS ORDERED: ONDANSETRON 4 MG/2 ML VIAL IM/IVP PRN (22:20)
[2023-02-18] MEDS ORDERED: guaiFENesin DM 200/20 MG-10 ML 10 ML UDC PO PRN (22:20)
[2023-02-18] MEDS ORDERED: ACETAMINOPHEN 325 MG TAB PO PRN (22:20)
[2023-02-18] MEDS ORDERED: ZOLPIDEM 5 MG TAB PO PRN (22:20)
[2023-02-18] MEDS ORDERED: HYDROcodone/APAP 7.5/325 MG 1 TAB PO PRN (22:20)
[2023-02-18] MEDS ORDERED: NACL 0.9% 1,000 ML IV SCH (22:20)
[2023-02-18] MEDS ORDERED: POTASSIUM CHLORIDE 10 MEQ TABER PO PRN (22:20)
[2023-02-18 22:45] VITALS: BP 119/68; PULSE 90; PULSE 91; RESP 16; TEMP 97.9; O2SAT 100
[2023-02-19 03:03] LABS: BASOPHILS % (AUTO) 0.9 % (0.0-2.0); EOSINOPHILS # (AUTO) 0.3 K/uL (0-0.4); EOSINOPHILS % (AUTO) 5.7 % (0.0-4.0); HEMATOCRIT 22.6 % (36-52); HEMOGLOBIN 7.5 g/dL (12.0-18.0); LYMPHOCYTES # (AUTO) 0.9 K/uL (2.0-11.5); LYMPHOCYTES % (AUTO) 19.5 % (20.5-51.1); MEAN CORPUSCULAR HEMOGLOBIN 27 pg (27-31); MEAN CORPUSCULAR HGB CONC 33 g/dL (33-37); MEAN CORPUSCULAR VOLUME 80.7 fL (80-94); MONOCYTES # (AUTO) 0.5 K/uL (0.8-1.0); MONOCYTES % (AUTO) 10.7 % (1.7-9.3); NEUTROPHILS % (AUTO) 63.2 % (42.2-75.2); PLATELET COUNT (AUTO) 180 K/uL (140-450); RED CELL DISTRIBUTION WIDTH 19.1 % (11.6-13.7); WHITE BLOOD COUNT (AUTO) 4.8 K/uL (4.8-10.8)
[2023-02-19 03:27] LABS: ALBUMIN 1.6 g/dL (3.4-5.0); ANION GAP 11.8 (8-16); CARBON DIOXIDE 21.3 mmol/L (21-32); CREATININE 1.2 mg/dL (0.6-1.3); POTASSIUM 5.1 mmol/L (3.5-5.1); TOTAL BILIRUBIN 2.5 mg/dL (0.0-1.0); TOTAL PROTEIN, SERUM 5.1 g/dL (6.4-8.2)
[2023-02-19 04:00] VITALS: BP 97/60; PULSE 76; PULSE 78; RESP 16; TEMP 97; O2SAT 100
[2023-02-19 08:00] VITALS: BP 96/58; PULSE 87; PULSE 94; RESP 18; TEMP 97.4; O2SAT 100
[2023-02-19] MEDS ORDERED: PANTOPRAZOLE 40 MG TABEC PO SCH (09:00)
[2023-02-19 12:00] VITALS: BP 105/62; PULSE 83; PULSE 90; RESP 18; TEMP 97.7; O2SAT 100
[2023-02-19] MEDS ORDERED: ALBUMIN HUMAN 25% 50 ML IV SCH (13:06)
[2023-02-19 17:37] VITALS: BP 101/60; PULSE 86; PULSE 89; RESP 20; TEMP 98.1; O2SAT 100
[2023-02-19 17:54] VITALS: BP 101/60; PULSE 86; RESP 20; TEMP 98.1
[2023-02-20] MEDS ORDERED: PANTOPRAZOLE 40 MG INJ VIAL IVP SCH (09:00)
== END 2023-02-19 19:15 | disposition home or self-care (01) | DRG 280 ==
LOC: MED 17:43 → MTU 22:19
PROVIDERS: ADMIT Student in an Organized Health Care Education/Training Program; ATTEND Student in an Organized Health Care Education/Training Program
PROC: 30233N1 Transfusion of Nonautologous Red Blood Cells into Peripheral Vein, Percutaneous Approach (ICD-10-PCS; principal; 2023-02-18)
PROC: 0W9G3ZZ Drainage of Peritoneal Cavity, Percutaneous Approach (ICD-10-PCS; 2023-02-18)
DX: K70.31 Alcoholic cirrhosis of liver with ascites (principal); E44.0 Moderate protein-calorie malnutrition; I11.0 Hypertensive heart disease with heart failure; I95.9 Hypotension, unspecified; I50.9 Heart failure, unspecified; E87.1 Hypo-osmolality and hyponatremia; D64.9 Anemia, unspecified; E87.5 Hyperkalemia; E87.70 Fluid overload, unspecified; Z88.1 Allergy status to other antibiotic agents; Z79.899 Other long term (current) drug therapy; Z68.25 Body mass index [BMI] 25.0-25.9, adult
CPT/HCPCS: 36415; 36430; 80048; 80053; 85025; 85610; 85730; 86886; 86900; 86901; 86920; 87081; 99285; P9016; P9046

== ENCOUNTER 2023-03-02 16:25 | Emergency (ER) | payer MEDICAID ==
[~2023-03-02] VITALS: Ht 167.6 cm; Wt 81.6 kg
[2023-03-02 16:46] VITALS: BP 125/78; PULSE 100; RESP 16; O2SAT 100
[2023-03-02] MEDS ORDERED: MORPHINE SULFATE 4 MG/ML SYR IM ONE ×2 (16:50→18:50)
[2023-03-02] MEDS ORDERED: MORPHINE SULFATE 4 MG/ML SYR ONE (16:50)
[2023-03-02 20:40] VITALS: BP 106/64; PULSE 96; RESP 16; TEMP 97.2; O2SAT 100
== END 2023-03-02 20:39 | disposition home or self-care (01) ==
LOC: MED 16:25
DX: R18.8 Other ascites (principal); R10.84 Generalized abdominal pain; Z88.6 Allergy status to analgesic agent
CPT/HCPCS: 49083; 96372; 99285; J2270; 99284

== ENCOUNTER 2023-03-11 09:37 | Emergency (ER) | payer MEDICAID ==
[~2023-03-11] VITALS: Ht 157.5 cm; Wt 72.6 kg
[2023-03-11 10:03] VITALS: BP 119/76; PULSE 102; RESP 15; TEMP 98.6; O2SAT 100
[2023-03-11] MEDS: ALBUMIN HUMAN 25% 50 ML IV ONE (10:59)
[2023-03-11] MEDS: MORPHINE SULFATE 4 MG/ML SYR IVP ONE (11:00)
[2023-03-11 16:15] VITALS: BP 115/69; PULSE 89; RESP 17; TEMP 98.6; O2SAT 100
== END 2023-03-11 16:15 | disposition home or self-care (01) ==
LOC: MED 09:37
DX: R18.8 Other ascites (principal); Z88.6 Allergy status to analgesic agent
CPT/HCPCS: 49083; 96361; 96374; 99285; J2270; P9046; 99284

== ENCOUNTER 2023-03-16 08:20 | Emergency (ER) | payer MEDICAID ==
[~2023-03-16] VITALS: Ht 162.6 cm; Wt 72.6 kg
[2023-03-16 08:33] VITALS: BP 124/79; PULSE 99; RESP 18; TEMP 97.9; O2SAT 100
[2023-03-16] MEDS ORDERED: LIDOCAINE 1% 500 MG/ 50 ML VIAL INJ ONE (08:45)
[2023-03-16 08:54] LABS: BASOPHILS # (AUTO) 0.1 K/uL (0.00-0.22); BASOPHILS % (AUTO) 1.3 % (0.0-2.0); EOSINOPHILS # (AUTO) 0.4 K/uL (0-0.4); EOSINOPHILS % (AUTO) 6.9 % (0.0-4.0); HEMATOCRIT 23.3 % (36-52); HEMOGLOBIN 7.4 g/dL (12.0-18.0); LYMPHOCYTES # (AUTO) 0.8 K/uL (2.0-11.5); MEAN CORPUSCULAR HEMOGLOBIN 25 pg (27-31); MEAN CORPUSCULAR HGB CONC 32 g/dL (33-37); MEAN CORPUSCULAR VOLUME 79.4 fL (80-94); MONOCYTES # (AUTO) 0.4 K/uL (0.8-1.0); MONOCYTES % (AUTO) 7.6 % (1.7-9.3); NEUTROPHILS # (AUTO) 3.7 K/uL (1.8-7.7); NEUTROPHILS % (AUTO) 69.2 % (42.2-75.2); PLATELET COUNT (AUTO) 226 K/uL (140-450); RED BLOOD CELL COUNT(AUTO) 2.94 MIL/uL (4.20-6.10); RED CELL DISTRIBUTION WIDTH 18.3 % (11.6-13.7); WHITE BLOOD COUNT (AUTO) 5.3 K/uL (4.8-10.8)
[2023-03-16] MEDS ORDERED: LIDOCAINE MPF 1% 5 ML ONE (08:57)
[2023-03-16 09:12] LABS: INR 1.14 (0.8-1.2); PARTIAL THROMBOPLASTIN TIME 26.5 secs (22-35.6); PROTHROMBIN TIME 11.9 secs (10.8-13.4)
[2023-03-16 09:13] LABS: ALBUMIN 1.7 g/dL (3.4-5.0); ANION GAP 10.9 (8-16); CALCIUM 7.9 mg/dL (8.5-10.1); CARBON DIOXIDE 21.8 mmol/L (21-32); CREATININE 1.7 mg/dL (0.6-1.3); TOTAL BILIRUBIN 0.7 mg/dL (0.0-1.0); TOTAL PROTEIN, SERUM 5.8 g/dL (6.4-8.2)
[2023-03-16 09:17] LABS: POTASSIUM 5.7 mmol/L (3.5-5.1)
[2023-03-16] MEDS ORDERED: MORPHINE SULFATE 4 MG/ML SYR IVP ONE (10:55)
[2023-03-16] MEDS ORDERED: ALBUMIN HUMAN 25% 50 ML IV ONE (11:20)
[2023-03-16] MEDS ORDERED: SODIUM ZIRCONIUM CYCLOSILICATE 10 GM POWD.PACK PO ONE (11:35)
[2023-03-16] MEDS ORDERED: SODI10PO PO (13:05)
[2023-03-16 14:18] VITALS: BP 110/62; PULSE 78; RESP 11; TEMP 97.8; O2SAT 100
[2023-03-27] MEDS ORDERED: PANT40VI IV (23:54)
[2023-03-27] MEDS ORDERED: FURO-570 PO (23:54)
== END 2023-03-16 14:12 | disposition home or self-care (01) ==
LOC: MED 08:20
DX: R18.8 Other ascites (principal); E87.5 Hyperkalemia; N28.9 Disorder of kidney and ureter, unspecified; Z88.6 Allergy status to analgesic agent; Z79.899 Other long term (current) drug therapy
CPT/HCPCS: 36415; 49083; 71045; 80053; 83880; 85025; 85610; 85730; 96365; 96375; 99285; J2001; J2270; P9046

== ENCOUNTER 2023-03-20 15:30 | Emergency (ER) | payer MEDICAID ==
[~2023-03-20] VITALS: Ht 162.6 cm; Wt 64.9 kg
[~2023-03-20 15:30] MED LIST changes: -BUME1TAB92 PO; -CIPR500T4 PO; -FURO-570 PO; -FURO-572 PO; -HYDR-5191 PO; -LACT-58 PO; -PANT40EC PO; +SODI10PO PO
[2023-03-20 16:17] VITALS: BP 100/58; PULSE 99; RESP 21; TEMP 98; O2SAT 98
[2023-03-20 17:00] VITALS: O2SAT 98
[2023-03-20] MEDS ORDERED: ONDANSETRON 4 MG/2 ML VIAL IVP ONE (17:10)
[2023-03-20 17:47] LABS: BASOPHILS # (AUTO) 0.1 K/uL (0.00-0.22); BASOPHILS % (AUTO) 0.8 % (0.0-2.0); EOSINOPHILS # (AUTO) 0.1 K/uL (0-0.4); EOSINOPHILS % (AUTO) 1.6 % (0.0-4.0); HEMATOCRIT 24.4 % (36-52); HEMOGLOBIN 7.8 g/dL (12.0-18.0); LYMPHOCYTES # (AUTO) 0.4 K/uL (2.0-11.5); LYMPHOCYTES % (AUTO) 6.2 % (20.5-51.1); MEAN CORPUSCULAR HEMOGLOBIN 25 pg (27-31); MEAN CORPUSCULAR HGB CONC 32 g/dL (33-37); MEAN CORPUSCULAR VOLUME 77.5 fL (80-94); MONOCYTES # (AUTO) 0.7 K/uL (0.8-1.0); MONOCYTES % (AUTO) 10.2 % (1.7-9.3); NEUTROPHILS # (AUTO) 5.4 K/uL (1.8-7.7); NEUTROPHILS % (AUTO) 81.2 % (42.2-75.2); PLATELET COUNT (AUTO) 226 K/uL (140-450); RED BLOOD CELL COUNT(AUTO) 3.15 MIL/uL (4.20-6.10); WHITE BLOOD COUNT (AUTO) 6.7 K/uL (4.8-10.8)
[2023-03-20 18:06] LABS: ALBUMIN 1.8 g/dL (3.4-5.0); ANION GAP 12.3 (8-16); CARBON DIOXIDE 20.4 mmol/L (21-32); CREATININE 1.8 mg/dL (0.6-1.3); POTASSIUM 5.7 mmol/L (3.5-5.1); TOTAL BILIRUBIN 0.8 mg/dL (0.0-1.0); TOTAL PROTEIN, SERUM 5.6 g/dL (6.4-8.2)
[2023-03-20 18:08] LABS: CREATINE KINASE, TOTAL 72 U/L (39-308)
[2023-03-20 18:35] LABS: LACTIC ACID 3.5 mmol/L (0.4-2.0)
[2023-03-20] MEDS ORDERED: SODIUM ZIRCONIUM CYCLOSILICATE 10 GM POWD.PACK PO ONE (18:50)
[2023-03-20] MEDS ORDERED: INSULIN REGULAR, HUMAN 100 UNIT/ML VIAL IV ONE (18:50)
[2023-03-20] MEDS ORDERED: DEXTROSE 50% 50 ML SYR IVP ONE ×3 (18:50→21:05)
[2023-03-20] MEDS ORDERED: MORPHINE SULFATE 4 MG/ML SYR IVP ONE (18:50)
[2023-03-20] MEDS ORDERED: CALCIUM GLUC 1 GM/50 mL NS BAG 50 ML IV ONE (18:50)
[2023-03-20] MEDS ORDERED: SODIUM BICARBONATE 8.4% PFS 50 MEQ/50 ML SYR IVP ONE (18:50)
[2023-03-20 19:38] VITALS: O2SAT 100
[2023-03-20] MEDS ORDERED: cefTRIAXone 1,000 MG VIAL ONE (21:01)
[2023-03-20 21:25] LABS: FLU A ANTIGEN negative (NEGATIVE); FLU B ANTIGEN NEGATIVE (NEGATIVE)
[2023-03-20 21:37] VITALS: O2SAT 100
[2023-03-21] VITALS (7 sets, daily range): BP systolic 124; BP diastolic 71; PULSE 88; RESP 13; TEMP 98; O2SAT 97–100
[2023-03-27] MEDS ORDERED: FURO-570 PO (23:54)
[2023-03-27] MEDS ORDERED: PANT40VI IV (23:54)
== END 2023-03-21 13:58 | disposition left against medical advice (07) ==
LOC: MED 15:30
DX: E87.5 Hyperkalemia (principal); Z20.822 Contact with and (suspected) exposure to COVID-19; R18.8 Other ascites; M79.10 Myalgia, unspecified site; R11.2 Nausea with vomiting, unspecified; D53.9 Nutritional anemia, unspecified; K74.60 Unspecified cirrhosis of liver; N18.9 Chronic kidney disease, unspecified; Z79.899 Other long term (current) drug therapy
CPT/HCPCS: 36415; 71045; 80053; 82550; 83605; 83880; 84484; 85025; 87040; 87426; 87804; 93005; 96365; 96375; 96376; 99291; J0610; J0696; J1815; J2270; J2405; Q0092

== ENCOUNTER 2023-03-23 08:58 | Emergency (ER) | payer MEDICAID ==
[~2023-03-23] VITALS: Ht 162.6 cm; Wt 70.3 kg
[2023-03-23 09:05] VITALS: BP 133/75; PULSE 113; RESP 20; TEMP 97.1; O2SAT 100
[2023-03-23 09:23] VITALS: TEMP 97.1
[2023-03-23 09:23] LABS: BASOPHILS # (AUTO) 0.1 K/uL (0.00-0.22); EOSINOPHILS # (AUTO) 0.2 K/uL (0-0.4); EOSINOPHILS % (AUTO) 3.8 % (0.0-4.0); HEMATOCRIT 23.4 % (36-52); HEMOGLOBIN 7.5 g/dL (12.0-18.0); LYMPHOCYTES # (AUTO) 0.7 K/uL (2.0-11.5); LYMPHOCYTES % (AUTO) 11.8 % (20.5-51.1); MEAN CORPUSCULAR HEMOGLOBIN 25 pg (27-31); MEAN CORPUSCULAR HGB CONC 32 g/dL (33-37); MEAN CORPUSCULAR VOLUME 76.6 fL (80-94); MONOCYTES # (AUTO) 0.5 K/uL (0.8-1.0); MONOCYTES % (AUTO) 7.6 % (1.7-9.3); NEUTROPHILS # (AUTO) 4.8 K/uL (1.8-7.7); NEUTROPHILS % (AUTO) 75.8 % (42.2-75.2); PLATELET COUNT (AUTO) 235 K/uL (140-450); RED BLOOD CELL COUNT(AUTO) 3.06 MIL/uL (4.20-6.10); RED CELL DISTRIBUTION WIDTH 17.2 % (11.6-13.7); WHITE BLOOD COUNT (AUTO) 6.3 K/uL (4.8-10.8)
[2023-03-23] MEDS ORDERED: MORPHINE SULFATE 4 MG/ML SYR IVP ONE (09:35)
[2023-03-23 09:37] LABS: ALBUMIN 1.7 g/dL (3.4-5.0); ANION GAP 14.4 (8-16); CALCIUM 7.7 mg/dL (8.5-10.1); CARBON DIOXIDE 20.8 mmol/L (21-32); CREATININE 1.5 mg/dL (0.6-1.3); POTASSIUM 5.2 mmol/L (3.5-5.1); TOTAL BILIRUBIN 0.5 mg/dL (0.0-1.0)
[2023-03-23 14:40] VITALS: BP 100/73; PULSE 100; RESP 16; O2SAT 98
== END 2023-03-23 14:40 | disposition home or self-care (01) ==
LOC: MED 08:58
DX: R18.8 Other ascites (principal); N18.9 Chronic kidney disease, unspecified; Z79.899 Other long term (current) drug therapy
CPT/HCPCS: 36415; 49083; 80053; 85025; 96374; 99285; J2270

== ENCOUNTER 2023-04-03 11:02 | Emergency (ER) | payer MEDICAID ==
[~2023-04-03] VITALS: Ht 162.6 cm; Wt 74.8 kg
[~2023-04-03 11:02] MED LIST changes: +FURO-570 PO; -SODI10PO PO
[2023-04-03 11:21] VITALS: BP 145/71; PULSE 89; RESP 18; TEMP 96.8; O2SAT 98
[2023-04-03 12:45] LABS: BASOPHILS % (AUTO) 0.8 % (0.0-2.0); EOSINOPHILS # (AUTO) 0.1 K/uL (0-0.4); EOSINOPHILS % (AUTO) 2.2 % (0.0-4.0); HEMATOCRIT 25.6 % (36-52); HEMOGLOBIN 8.3 g/dL (12.0-18.0); LYMPHOCYTES # (AUTO) 0.6 K/uL (2.0-11.5); LYMPHOCYTES % (AUTO) 9.9 % (20.5-51.1); MEAN CORPUSCULAR HEMOGLOBIN 26 pg (27-31); MEAN CORPUSCULAR HGB CONC 32 g/dL (33-37); MEAN CORPUSCULAR VOLUME 79.3 fL (80-94); MONOCYTES # (AUTO) 0.5 K/uL (0.8-1.0); MONOCYTES % (AUTO) 8.3 % (1.7-9.3); NEUTROPHILS # (AUTO) 4.8 K/uL (1.8-7.7); NEUTROPHILS % (AUTO) 78.8 % (42.2-75.2); PLATELET COUNT (AUTO) 204 K/uL (140-450); RED BLOOD CELL COUNT(AUTO) 3.23 MIL/uL (4.20-6.10); RED CELL DISTRIBUTION WIDTH 19.8 % (11.6-13.7); WHITE BLOOD COUNT (AUTO) 6.1 K/uL (4.8-10.8)
[2023-04-03 12:48] VITALS: TEMP 96.8
[2023-04-03 13:28] LABS: ALBUMIN 1.5 g/dL (3.4-5.0); ANION GAP 12.3 (8-16); CALCIUM 7.2 mg/dL (8.5-10.1); CREATININE 1.3 mg/dL (0.6-1.3); POTASSIUM 4.3 mmol/L (3.5-5.1); TOTAL BILIRUBIN 0.6 mg/dL (0.0-1.0); TOTAL PROTEIN, SERUM 5.7 g/dL (6.4-8.2)
[2023-04-03 13:53] LABS: INR 1.16 (0.8-1.2); PARTIAL THROMBOPLASTIN TIME 26.9 secs (22-35.6); PROTHROMBIN TIME 12.1 secs (10.8-13.4)
[2023-04-03] MEDS ORDERED: MORPHINE SULFATE 4 MG/ML SYR IVP ONE (15:00)
[2023-04-03] MEDS ORDERED: ALBUMIN HUMAN 25% 50 ML IV ONE (15:00)
[2023-04-03 18:04] VITALS: BP 118/67; PULSE 79; RESP 17; O2SAT 98
== END 2023-04-03 18:04 | disposition home or self-care (01) ==
LOC: MED 11:02
DX: R18.8 Other ascites (principal); I25.10 Atherosclerotic heart disease of native coronary artery without angina pectoris; N18.9 Chronic kidney disease, unspecified; Z88.5 Allergy status to narcotic agent; Z79.899 Other long term (current) drug therapy
CPT/HCPCS: 36415; 49083; 80053; 85025; 85610; 85730; 96365; 96375; 99285; J2270; J7030; P9046

== ENCOUNTER 2023-04-07 09:56 | Emergency (ER) | payer MEDICAID ==
[~2023-04-07] VITALS: Ht 162.6 cm; Wt 71.7 kg
[2023-04-07 10:02] VITALS: BP 122/74; PULSE 102; RESP 20; TEMP 98; O2SAT 100
[2023-04-07 10:57] LABS: BASOPHILS % (AUTO) 0.5 % (0.0-2.0); EOSINOPHILS # (AUTO) 0.1 K/uL (0-0.4); EOSINOPHILS % (AUTO) 2.1 % (0.0-4.0); HEMATOCRIT 26.9 % (36-52); HEMOGLOBIN 8.5 g/dL (12.0-18.0); LYMPHOCYTES # (AUTO) 0.4 K/uL (2.0-11.5); LYMPHOCYTES % (AUTO) 7.8 % (20.5-51.1); MEAN CORPUSCULAR HEMOGLOBIN 25 pg (27-31); MEAN CORPUSCULAR HGB CONC 32 g/dL (33-37); MEAN CORPUSCULAR VOLUME 79.5 fL (80-94); MONOCYTES # (AUTO) 0.4 K/uL (0.8-1.0); MONOCYTES % (AUTO) 7.1 % (1.7-9.3); NEUTROPHILS # (AUTO) 4.8 K/uL (1.8-7.7); NEUTROPHILS % (AUTO) 82.5 % (42.2-75.2); PLATELET COUNT (AUTO) 168 K/uL (140-450); RED BLOOD CELL COUNT(AUTO) 3.38 MIL/uL (4.20-6.10); RED CELL DISTRIBUTION WIDTH 20.3 % (11.6-13.7); WHITE BLOOD COUNT (AUTO) 5.8 K/uL (4.8-10.8)
[2023-04-07 11:16] LABS: INR 1.14 (0.8-1.2); PARTIAL THROMBOPLASTIN TIME 27.5 secs (22-35.6); PROTHROMBIN TIME 11.9 secs (10.8-13.4)
[2023-04-07 11:30] LABS: ALANINE AMINOTRANSFERASE 23 U/L (12-78); ALBUMIN 1.6 g/dL (3.4-5.0); ALKALINE PHOSPHATASE 275 U/L (50-136); ANION GAP 11.9 (8-16); ASPARTATE AMINOTRANSFERASE 40 U/L (15-37); CALCIUM 7.6 mg/dL (8.5-10.1); CARBON DIOXIDE 20.9 mmol/L (21-32); CHLORIDE 101 mmol/L (98-107); CREATININE 1.4 mg/dL (0.6-1.3); GFR ARICAN-AMERICAN 68 mL/min (>90); GFR NON ARICAN-AMERICAN 57 mL/min (>90); GLUCOSE 124 mg/dL (74-106); LIPASE 112 U/L (16-77); POTASSIUM 4.8 mmol/L (3.5-5.1); SODIUM SERUM 129 mmol/L (136-145); TOTAL BILIRUBIN 0.7 mg/dL (0.0-1.0); TOTAL PROTEIN, SERUM 5.7 g/dL (6.4-8.2); UREA NITROGEN, BLOOD 34 mg/dL (7-18)
[2023-04-07] MEDS ORDERED: MORPHINE SULFATE 4 MG/ML SYR IVP ONE (11:55)
[2023-04-07] MEDS ORDERED: ALBUMIN HUMAN 5 % 250 ML IV ONE (11:55)
[2023-04-07 14:08] LABS: GLUCOSE,BODY FLUID 108 mg/dL
[2023-04-07 14:10] LABS: PROTEIN, BODY FLUID 3.1 g/dL
[2023-04-07 16:14] VITALS: BP 122/74; PULSE 102; RESP 20; TEMP 98; O2SAT 100
[2023-04-07 21:22] LABS: APPEARANCE,UNSPUN,BODY FLUID CLOUDY (CLEAR); SPECIMENTYPE,BODY FLUID PERITONEAL
[2023-04-07 21:23] LABS: COLOR,BODY FLUID YELLOW (LT YELLOW)
[2023-04-07 21:24] LABS: RBC, BODY FLUID 2572 /cu. mm.
[2023-04-07 21:25] LABS: TOTAL VOLUME,BODY FLUID 9 mL
[2023-04-07 21:26] LABS: WBC, BODY FLUID 78 /cu. mm.
== END 2023-04-07 16:15 | disposition home or self-care (01) ==
LOC: MED 09:56
DX: K70.31 Alcoholic cirrhosis of liver with ascites (principal); E87.1 Hypo-osmolality and hyponatremia
CPT/HCPCS: 36415; 49083; 80053; 82945; 83690; 84157; 84484; 85025; 85610; 85730; 87205; 89051; 93005; 96365; 96375; 99285; J2270; P9041

== ENCOUNTER 2023-04-12 09:09 | Inpatient (IN) | payer MEDICAID ==
[~2023-04-12] VITALS: Ht 162.6 cm; Wt 68.0 kg
[2023-04-12 09:12] VITALS: BP 123/78; PULSE 96; RESP 18; TEMP 97.7; O2SAT 100
[2023-04-12 09:43] VITALS: O2SAT 100
[2023-04-12 09:56] LABS: BASOPHILS % (AUTO) 0.6 % (0.0-2.0); EOSINOPHILS # (AUTO) 0.2 K/uL (0-0.4); EOSINOPHILS % (AUTO) 4.1 % (0.0-4.0); HEMATOCRIT 23.2 % (36-52); HEMOGLOBIN 7.5 g/dL (12.0-18.0); LYMPHOCYTES # (AUTO) 0.5 K/uL (2.0-11.5); MEAN CORPUSCULAR HEMOGLOBIN 25 pg (27-31); MEAN CORPUSCULAR HGB CONC 32 g/dL (33-37); MEAN CORPUSCULAR VOLUME 78.7 fL (80-94); MONOCYTES # (AUTO) 0.3 K/uL (0.8-1.0); MONOCYTES % (AUTO) 6.1 % (1.7-9.3); NEUTROPHILS # (AUTO) 4.2 K/uL (1.8-7.7); NEUTROPHILS % (AUTO) 79.2 % (42.2-75.2); PLATELET COUNT (AUTO) 187 K/uL (140-450); RED BLOOD CELL COUNT(AUTO) 2.95 MIL/uL (4.20-6.10); RED CELL DISTRIBUTION WIDTH 21.1 % (11.6-13.7); WHITE BLOOD COUNT (AUTO) 5.2 K/uL (4.8-10.8)
[2023-04-12 10:22] LABS: PROTHROMBIN TIME 11.2 secs (10.8-13.4)
[2023-04-12 10:23] LABS: ALBUMIN 1.8 g/dL (3.4-5.0); ANION GAP 14.1 (8-16); CARBON DIOXIDE 20.7 mmol/L (21-32); CREATININE 1.7 mg/dL (0.6-1.3); INR 1.07 (0.8-1.2); POTASSIUM 5.8 mmol/L (3.5-5.1); TOTAL BILIRUBIN 0.5 mg/dL (0.0-1.0); TOTAL PROTEIN, SERUM 5.9 g/dL (6.4-8.2)
[2023-04-12] MEDS ORDERED: ALBUMIN HUMAN 25% 100 ML IV ONE (12:30)
[2023-04-12] MEDS ORDERED: CALCIUM GLUCONATE 10% 1,000 MG in NACL 0.9% 50 ML IV ONE (12:55)
[2023-04-12] MEDS ORDERED: DEXTROSE 50% 50 ML SYR IVP ONE (13:15)
[2023-04-12] MEDS ORDERED: INSULIN REGULAR, HUMAN 100 UNIT/ML VIAL IVP ONE (13:15)
[2023-04-12] MEDS ORDERED: ONDANSETRON 4 MG/2 ML VIAL IVP ONE (13:30)
[2023-04-12] MEDS ORDERED: MORPHINE SULFATE 4 MG/ML SYR IVP ONE (13:30)
[2023-04-12] MEDS ORDERED: CALCIUM GLUC 1 GM/50 mL NS BAG 50 ML IV ONE (13:57)
[2023-04-12] MEDS ORDERED: ZOLPIDEM 5 MG TAB PO PRN (21:20)
[2023-04-12] MEDS ORDERED: DOCUSATE SODIUM 100 MG GELCAP PO PRN (21:20)
[2023-04-12] MEDS ORDERED: KCL 20 MEQ IN 100 mL PREMIX 200 ML IV PRN (21:20)
[2023-04-12] MEDS ORDERED: guaiFENesin DM 200/20 MG-10 ML 10 ML UDC PO PRN (21:20)
[2023-04-12] MEDS ORDERED: ACETAMINOPHEN 325 MG TAB PO PRN (21:20)
[2023-04-12] MEDS ORDERED: HYDROcodone/APAP 7.5/325 MG 1 TAB PO PRN (21:20)
[2023-04-12] MEDS ORDERED: ONDANSETRON 4 MG/2 ML VIAL IM/IVP PRN (21:20)
[2023-04-12 21:50] VITALS: PULSE 97; RESP 18; O2SAT 98
[2023-04-12 21:53] VITALS: PULSE 103
[2023-04-12] MEDS: NACL 0.9% 1,000 ML IV SCH (23:30)
[2023-04-13] VITALS: BP 107/72; PULSE 102; PULSE 95; RESP 18; TEMP 98.7; O2SAT 97
[2023-04-13 04:00] VITALS: BP 106/60; PULSE 100; PULSE 92; RESP 18; TEMP 98.9; O2SAT 97
[2023-04-13 07:26] LABS: BASOPHILS # (AUTO) 0.1 K/uL (0.00-0.22); BASOPHILS % (AUTO) 1.2 % (0.0-2.0); EOSINOPHILS # (AUTO) 0.3 K/uL (0-0.4); EOSINOPHILS % (AUTO) 5.3 % (0.0-4.0); HEMATOCRIT 22.7 % (36-52); HEMOGLOBIN 7.3 g/dL (12.0-18.0); LYMPHOCYTES # (AUTO) 0.7 K/uL (2.0-11.5); LYMPHOCYTES % (AUTO) 12.3 % (20.5-51.1); MEAN CORPUSCULAR HEMOGLOBIN 25 pg (27-31); MEAN CORPUSCULAR HGB CONC 32 g/dL (33-37); MEAN CORPUSCULAR VOLUME 77.6 fL (80-94); MONOCYTES # (AUTO) 0.5 K/uL (0.8-1.0); MONOCYTES % (AUTO) 8.8 % (1.7-9.3); NEUTROPHILS # (AUTO) 4.1 K/uL (1.8-7.7); NEUTROPHILS % (AUTO) 72.4 % (42.2-75.2); PLATELET COUNT (AUTO) 184 K/uL (140-450); RED BLOOD CELL COUNT(AUTO) 2.93 MIL/uL (4.20-6.10); RED CELL DISTRIBUTION WIDTH 20.2 % (11.6-13.7); WHITE BLOOD COUNT (AUTO) 5.7 K/uL (4.8-10.8)
[2023-04-13 08:00] VITALS: BP 110/58; PULSE 100; PULSE 89; PULSE 94; RESP 18; TEMP 97.8; O2SAT 89; O2SAT 98
[2023-04-13 08:15] LABS: INR 1.08 (0.8-1.2); PROTHROMBIN TIME 11.3 secs (10.8-13.4)
[2023-04-13 08:20] LABS: FREE T4 (FREE THYROXINE) 0.95 ng/dL (0.76-1.46); MAGNESIUM 2.2 mg/dL (1.8-2.4); PHOSPHORUS 4.1 mg/dL (2.5-4.9); THYROID STIMULATING HORMONE 2.55 uIU/mL (0.34-3.74)
[2023-04-13 08:53] LABS: ANION GAP 14.5 (8-16); CALCIUM 7.8 mg/dL (8.5-10.1); CARBON DIOXIDE 20.9 mmol/L (21-32); CREATININE 1.4 mg/dL (0.6-1.3)
[2023-04-13] MEDS: PANTOPRAZOLE 40 MG TABEC PO SCH (08:59)
[2023-04-13 09:03] LABS: POTASSIUM 7.4 mmol/L (3.5-5.1)
[2023-04-13 09:15] LABS: PARTIAL THROMBOPLASTIN TIME 27.6 secs (22-35.6)
[2023-04-13 09:45] LABS: APPEARANCE,URINE CLEAR (CLEAR); BILIRUBIN,URINE NEGATIVE (NEGATIVE); BLOOD, URINE NEGATIVE (NEGATIVE); COLOR,URINE YELLOW (YELLOW); LEUKOCYTE ESTERASE ,URINE NEGATIVE (NEGATIVE); NITRITE, URINE NEGATIVE (NEGATIVE); PROTEIN,URINE NEGATIVE (NEGATIVE); UGLUCOSE NEGATIVE (NEGATIVE); UROBILINOGEN,URINE 0.2 EU/dL (0.2 - 1)
[2023-04-13 12:00] VITALS: BP 110/58; PULSE 98; RESP 18; TEMP 97.5; O2SAT 99
[2023-04-13] MEDS: NACL 0.9% 1,000 ML IV SCH (14:00)
[2023-04-13 16:00] VITALS: BP 119/69; PULSE 99; RESP 18; TEMP 97.2; O2SAT 100
[2023-04-13] MEDS ORDERED: COMMUNICATION ORDER MC STA (16:18)
[2023-04-13] MEDS ORDERED: SODIUM POLYSTYRENE 15 GM/60 ML UDBTL PO SCH (16:30)
[2023-04-13] MEDS ORDERED: CALCIUM GLUCONATE 10% 1000 MG/10 ML VIAL IVP SCH (16:30)
[2023-04-13] MEDS ORDERED: INSULIN REGULAR, HUMAN 100 UNIT/ML VIAL IVP SCH (16:30)
[2023-04-13] MEDS ORDERED: DEXTROSE 50% 50 ML SYR IVP SCH (16:35)
[2023-04-13 20:00] VITALS: BP 112/63; PULSE 103; RESP 20; TEMP 97.6; O2SAT 98
[2023-04-13 21:16] LABS: AMPHETAMINE, URINE NEGATIVE ng/ml (NEG <=1000); BARBITURATE, URINE NEGATIVE ng/ml (NEG <=200); BENZODIAZEPINE, URINE NEGATIVE ng/mL (NEG <=200); CANNABINOID, URINE NEGATIVE ng/mL (NEG <=50); COCAINE, URINE NEGATIVE ng/mL (NEG <=300); PHENCYCLIDINE SCREEN,URINE NEGATIVE ng/mL (NEG <=25)
[2023-04-13 21:17] LABS: OPIATE, URINE POSITIVE ng/mL (NEG <=2000)
[2023-04-13 22:27] LABS: ANION GAP 13.3 (8-16); CARBON DIOXIDE 20.9 mmol/L (21-32); CREATININE 1.3 mg/dL (0.6-1.3); POTASSIUM 5.2 mmol/L (3.5-5.1)
[2023-04-14 04:00] VITALS: BP 92/58; PULSE 102; RESP 18; TEMP 97.1; O2SAT 98
[2023-04-14] MEDS: NACL 0.9% 1,000 ML IV SCH (06:40)
[2023-04-14 07:01] LABS: EOSINOPHILS # (AUTO) 0.3 K/uL (0-0.4); HEMATOCRIT 22.1 % (36-52); HEMOGLOBIN 7.2 g/dL (12.0-18.0); LYMPHOCYTES # (AUTO) 0.7 K/uL (2.0-11.5); LYMPHOCYTES % (AUTO) 16.5 % (20.5-51.1); MEAN CORPUSCULAR HEMOGLOBIN 25 pg (27-31); MEAN CORPUSCULAR HGB CONC 33 g/dL (33-37); MEAN CORPUSCULAR VOLUME 76.8 fL (80-94); MONOCYTES # (AUTO) 0.5 K/uL (0.8-1.0); MONOCYTES % (AUTO) 10.5 % (1.7-9.3); PLATELET COUNT (AUTO) 183 K/uL (140-450); RED BLOOD CELL COUNT(AUTO) 2.89 MIL/uL (4.20-6.10); RED CELL DISTRIBUTION WIDTH 20.7 % (11.6-13.7); WHITE BLOOD COUNT (AUTO) 4.5 K/uL (4.8-10.8)
[2023-04-14 07:09] LABS: ANION GAP 13.7 (8-16); CALCIUM 7.7 mg/dL (8.5-10.1); CARBON DIOXIDE 20.9 mmol/L (21-32); CREATININE 1.2 mg/dL (0.6-1.3); POTASSIUM 4.6 mmol/L (3.5-5.1)
[2023-04-14 08:00] VITALS: BP 110/68; PULSE 96; RESP 18; TEMP 97.5; O2SAT 97
[2023-04-14 09:06] LABS: HEMOGLOBIN A1C 5.2 % (4.8-5.6)
[2023-04-14] MEDS: PANTOPRAZOLE 40 MG TABEC PO SCH (09:19)
[2023-04-14 09:25] VITALS: PULSE 99; RESP 19; O2SAT 99
[2023-04-14 15:06] LABS: T4 (THYROXINE) 5.2 ug/dL (4.5-12.0)
[2023-04-14 16:00] VITALS: BP 114/63; PULSE 98; RESP 18; TEMP 98.4; O2SAT 97
[2023-04-14 19:49] VITALS: BP 114/63; PULSE 98; RESP 18; TEMP 98.4
== END 2023-04-14 20:32 | disposition home or self-care (01) ==
LOC: MED 09:09 → MTU 20:30 → MED 20:30
PROVIDERS: ADMIT Family Medicine; ATTEND Family Medicine
PROC: 0W9G3ZZ Drainage of Peritoneal Cavity, Percutaneous Approach (ICD-10-PCS; principal; 2023-04-12)
DX: K74.60 Unspecified cirrhosis of liver (principal); N17.0 Acute kidney failure with tubular necrosis; E43 Unspecified severe protein-calorie malnutrition; R18.8 Other ascites; K72.10 Chronic hepatic failure without coma; D63.8 Anemia in other chronic diseases classified elsewhere; E87.1 Hypo-osmolality and hyponatremia; E86.0 Dehydration; E87.70 Fluid overload, unspecified; I25.10 Atherosclerotic heart disease of native coronary artery without angina pectoris; I12.9 Hypertensive chronic kidney disease with stage 1 through stage 4 chronic kidney disease, or unspecified chronic kidney disease; Z20.822 Contact with and (suspected) exposure to COVID-19; E87.5 Hyperkalemia; R74.01 Elevation of levels of liver transaminase levels; N18.30 Chronic kidney disease, stage 3 unspecified; Z88.6 Allergy status to analgesic agent; Z79.899 Other long term (current) drug therapy; Z68.25 Body mass index [BMI] 25.0-25.9, adult
CPT/HCPCS: 36415; 71045; 80048; 80053; 80305; 81003; 82150; 82948; 83036; 83690; 83735; 83880; 84100; 84436; 84439; 84443; 84479; 85025; 85610; 85730; 87081; 93005; 96361; 96374; 96375; 99291; J0610; J1815; J2270; J2405; P9046

== ENCOUNTER 2023-04-18 13:09 | Emergency (ER) | payer MEDICAID ==
[~2023-04-18] VITALS: Ht 162.6 cm; Wt 69.5 kg
[2023-04-18 13:14] VITALS: BP 114/68; PULSE 118; RESP 18; TEMP 98; O2SAT 97
[2023-04-18 13:30] VITALS: TEMP 98
[2023-04-18] MEDS ORDERED: MORPHINE SULFATE 4 MG/ML SYR IVP ONE (14:20)
[2023-04-18 18:35] VITALS: BP 121/79; PULSE 86; RESP 16; O2SAT 98
== END 2023-04-18 18:35 | disposition home or self-care (01) ==
LOC: MED 13:09
DX: K70.31 Alcoholic cirrhosis of liver with ascites (principal); Z87.448 Personal history of other diseases of urinary system; Z79.899 Other long term (current) drug therapy; Z88.6 Allergy status to analgesic agent
CPT/HCPCS: 49083; 96374; 99285; J2270

== ENCOUNTER 2023-04-20 17:50 | Inpatient (IN) | payer MEDICAID ==
[~2023-04-20] VITALS: Ht 162.6 cm; Wt 70.3 kg
[2023-04-20 18:20] VITALS: BP 108/61; PULSE 121; RESP 20; TEMP 98.4; O2SAT 100
[2023-04-20 18:39] LABS: BASOPHILS # (AUTO) 0.1 K/uL (0.00-0.22); BASOPHILS % (AUTO) 0.9 % (0.0-2.0); EOSINOPHILS # (AUTO) 0.1 K/uL (0-0.4); EOSINOPHILS % (AUTO) 1.4 % (0.0-4.0); HEMATOCRIT 24.3 % (36-52); HEMOGLOBIN 7.9 g/dL (12.0-18.0); LYMPHOCYTES # (AUTO) 0.5 K/uL (2.0-11.5); LYMPHOCYTES % (AUTO) 5.5 % (20.5-51.1); MEAN CORPUSCULAR HEMOGLOBIN 25 pg (27-31); MEAN CORPUSCULAR HGB CONC 32 g/dL (33-37); MEAN CORPUSCULAR VOLUME 76.8 fL (80-94); MONOCYTES # (AUTO) 1.2 K/uL (0.8-1.0); MONOCYTES % (AUTO) 12.7 % (1.7-9.3); NEUTROPHILS # (AUTO) 7.5 K/uL (1.8-7.7); NEUTROPHILS % (AUTO) 79.5 % (42.2-75.2); PLATELET COUNT (AUTO) 351 K/uL (140-450); RED BLOOD CELL COUNT(AUTO) 3.17 MIL/uL (4.20-6.10); RED CELL DISTRIBUTION WIDTH 19.7 % (11.6-13.7); WHITE BLOOD COUNT (AUTO) 9.4 K/uL (4.8-10.8)
[2023-04-20 19:03] LABS: ALBUMIN 1.8 g/dL (3.4-5.0); ANION GAP 12.6 (8-16); CALCIUM 7.6 mg/dL (8.5-10.1); CARBON DIOXIDE 21.8 mmol/L (21-32); CREATININE 1.7 mg/dL (0.6-1.3); INR 1.16 (0.8-1.2); PARTIAL THROMBOPLASTIN TIME 26.7 secs (22-35.6); POTASSIUM 5.4 mmol/L (3.5-5.1); PROTHROMBIN TIME 12.1 secs (10.8-13.4); TOTAL BILIRUBIN 0.6 mg/dL (0.0-1.0); TOTAL PROTEIN, SERUM 5.8 g/dL (6.4-8.2)
[2023-04-20] MEDS ORDERED: ONDANSETRON 4 MG/2 ML VIAL IVP ONE (19:05)
[2023-04-20] MEDS ORDERED: SODIUM PHOSPHATE 118 ML ENEM RC ONE (19:10)
[2023-04-20] MEDS ORDERED: MORPHINE SULFATE 4 MG/ML SYR IVP ONE (19:10)
[2023-04-20 19:46] LABS: LACTIC ACID 3.2 mmol/L (0.4-2.0)
[2023-04-20] MEDS ORDERED: ALBUMIN HUMAN 25% 100 ML IV ONE (20:35)
[2023-04-20] MEDS ORDERED: DEXTROSE 50% 50 ML SYR IVP ONE (20:35)
[2023-04-20] MEDS ORDERED: SODIUM BICARBONATE 8.4% PFS 50 MEQ/50 ML SYR IVP ONE (20:35)
[2023-04-20] MEDS ORDERED: SODIUM POLYSTYRENE 15 GM/60 ML UDBTL PO ONE (20:35)
[2023-04-20] MEDS ORDERED: INSULIN REGULAR, HUMAN 100 UNIT/ML VIAL IVP ONE (20:35)
[2023-04-20 20:43] LABS: FLU A ANTIGEN negative (NEGATIVE); FLU B ANTIGEN NEGATIVE (NEGATIVE)
[2023-04-20] MEDS ORDERED: cefTRIAXone 1,000 MG VIAL ONE (20:49)
[2023-04-20] MEDS ORDERED: FURO-572 PO (22:29)
[2023-04-21 01:56] LABS: APPEARANCE,URINE CLEAR (CLEAR); BILIRUBIN,URINE 1+ (NEGATIVE); BLOOD, URINE NEGATIVE (NEGATIVE); COLOR,URINE YELLOW (YELLOW); LEUKOCYTE ESTERASE ,URINE NEGATIVE (NEGATIVE); NITRITE, URINE NEGATIVE (NEGATIVE); PH,URINE 5.5 (5.0-9.0); PROTEIN,URINE NEGATIVE (NEGATIVE); UGLUCOSE NEGATIVE (NEGATIVE); UROBILINOGEN,URINE 0.2 EU/dL (0.2 - 1)
[2023-04-21 02:15] LABS: ICTOTEST NEGATIVE (NEGATIVE)
[2023-04-21 02:16] LABS: BACTERIA,URINE OCCASSIONAL /HPF (None Seen); RBC,URINE NONE SEEN /HPF (0-5); SQUAMOUS EPITHELIAL CELL,UR 0-3 (FEW) /LPF (0-3 (FEW)); WBC,URINE 0-5 /HPF (0-5)
[2023-04-21 02:17] LABS: HYALINE CASTS, URINE 30-50 /LPF (None Seen)
[2023-04-21] MEDS: NACL 0.9% 1,000 ML IV SCH ×3 (03:40→23:10)
[2023-04-21] MEDS: LACTULOSE 20 GM/30 ML UDC PO SCH ×2 (11:25→21:32)
[2023-04-21] MEDS ORDERED: FUROSEMIDE 40 MG/4 ML VIAL IVP SCH (11:25)
[2023-04-21] MEDS ORDERED: SPIRONOLACTONE 25 MG TAB PO SCH (11:25)
[2023-04-21] MEDS ORDERED: PROPRANOLOL 20 MG TAB PO SCH (11:25)
[2023-04-21] MEDS ORDERED: ONDANSETRON 4 MG/2 ML VIAL IVP PRN (11:25)
[2023-04-21] MEDS ORDERED: SODIUM ZIRCONIUM CYCLOSILICATE 10 GM POWD.PACK PO ONE (11:25)
[2023-04-21 17:45] VITALS: BP 112/59; PULSE 83; PULSE 92; RESP 18; TEMP 98; O2SAT 83
[2023-04-21 19:30] VITALS: PULSE 80; RESP 18; O2SAT 97
[2023-04-21 20:00] VITALS: BP 97/51; PULSE 71; PULSE 80; RESP 18; TEMP 98.2; O2SAT 97
[2023-04-21] MEDS ORDERED: cefTRIAXone 2,000 MG in DEXTROSE 5% 100 ML IV SCH (21:00)
[2023-04-21] MEDS ORDERED: cefTRIAXone 2,000 MG VIAL ONE (21:21)
[2023-04-22] VITALS: BP 96/53; PULSE 74; PULSE 82; RESP 18; TEMP 98.3; O2SAT 97
[2023-04-22 04:00] VITALS: BP 92/63; PULSE 75; PULSE 79; RESP 18; TEMP 98.1; O2SAT 99
[2023-04-22] MEDS ORDERED: FERROUS SULFATE 300 MG/5 ML UDC GT SCH (09:00)
[2023-04-22 09:07] VITALS: PULSE 78; RESP 20; O2SAT 100
== END 2023-04-22 09:20 | disposition left against medical advice (07) | DRG 425 ==
LOC: MED 17:50 → MMU 21:14 → MTU 04-21 17:32
PROVIDERS: ADMIT Student in an Organized Health Care Education/Training Program; ATTEND Student in an Organized Health Care Education/Training Program
DX: E87.5 Hyperkalemia (principal); N17.0 Acute kidney failure with tubular necrosis; K65.2 Spontaneous bacterial peritonitis; N18.6 End stage renal disease; E87.20 Acidosis, unspecified; K72.10 Chronic hepatic failure without coma; D63.8 Anemia in other chronic diseases classified elsewhere; R18.8 Other ascites; E87.1 Hypo-osmolality and hyponatremia; K74.60 Unspecified cirrhosis of liver; Z20.822 Contact with and (suspected) exposure to COVID-19; K59.00 Constipation, unspecified; Z53.29 Procedure and treatment not carried out because of patient's decision for other reasons; Z88.8 Allergy status to other drugs, medicaments and biological substances; R65.10 Systemic inflammatory response syndrome (SIRS) of non-infectious origin without acute organ dysfunction
CPT/HCPCS: 36415; 71045; 80053; 81001; 82140; 82948; 83605; 83690; 84484; 85025; 85610; 85730; 87040; 87081; 87086; 93005; 96365; 96375; 99285; J0696; J1815; J1940; J2270; J2405; J7060; P9046; Q0092

== ENCOUNTER 2023-04-24 10:01 | Emergency (ER) | payer MEDICAID ==
[~2023-04-24] VITALS: Ht 193 cm; Wt 70.3 kg
[~2023-04-24 10:01] MED LIST changes: +FURO-572 PO
[2023-04-24 10:03] VITALS: BP 109/65; PULSE 95; RESP 18; TEMP 97.7; O2SAT 100
[2023-04-24 11:23] LABS: BASOPHILS # (AUTO) 0.1 K/uL (0.00-0.22); BASOPHILS % (AUTO) 1.1 % (0.0-2.0); EOSINOPHILS # (AUTO) 0.2 K/uL (0-0.4); EOSINOPHILS % (AUTO) 3.4 % (0.0-4.0); HEMATOCRIT 22.2 % (36-52); HEMOGLOBIN 7.2 g/dL (12.0-18.0); LYMPHOCYTES # (AUTO) 0.6 K/uL (2.0-11.5); LYMPHOCYTES % (AUTO) 10.2 % (20.5-51.1); MEAN CORPUSCULAR HEMOGLOBIN 24 pg (27-31); MEAN CORPUSCULAR HGB CONC 32 g/dL (33-37); MEAN CORPUSCULAR VOLUME 75.5 fL (80-94); MONOCYTES # (AUTO) 0.8 K/uL (0.8-1.0); MONOCYTES % (AUTO) 12.8 % (1.7-9.3); NEUTROPHILS # (AUTO) 4.6 K/uL (1.8-7.7); NEUTROPHILS % (AUTO) 72.5 % (42.2-75.2); PLATELET COUNT (AUTO) 223 K/uL (140-450); RED BLOOD CELL COUNT(AUTO) 2.94 MIL/uL (4.20-6.10); RED CELL DISTRIBUTION WIDTH 19.5 % (11.6-13.7); WHITE BLOOD COUNT (AUTO) 6.3 K/uL (4.8-10.8)
[2023-04-24 11:35] LABS: INR 1.17 (0.8-1.2); PARTIAL THROMBOPLASTIN TIME 29.5 secs (22-35.6); PROTHROMBIN TIME 12.2 secs (10.8-13.4)
[2023-04-24 11:38] LABS: ALBUMIN 1.8 g/dL (3.4-5.0); ANION GAP 10.3 (8-16); CALCIUM 7.4 mg/dL (8.5-10.1); CARBON DIOXIDE 23.7 mmol/L (21-32); CREATININE 1.8 mg/dL (0.6-1.3); TOTAL BILIRUBIN 0.6 mg/dL (0.0-1.0); TOTAL PROTEIN, SERUM 5.4 g/dL (6.4-8.2)
[2023-04-24 11:41] LABS: LACTIC ACID 1.7 mmol/L (0.4-2.0)
[2023-04-24 15:08] VITALS: BP 109/65; PULSE 95; RESP 18; TEMP 97.7; O2SAT 100
== END 2023-04-24 15:09 | disposition home or self-care (01) ==
LOC: MED 10:01
DX: K70.31 Alcoholic cirrhosis of liver with ascites (principal); N18.9 Chronic kidney disease, unspecified; D63.1 Anemia in chronic kidney disease; Z79.899 Other long term (current) drug therapy; Z88.6 Allergy status to analgesic agent
CPT/HCPCS: 36415; 49083; 80053; 83605; 83880; 84484; 85025; 85610; 85730; 87040; 93005; 99285

== ENCOUNTER 2023-04-29 09:39 | Emergency (ER) | payer MEDICAID ==
[~2023-04-29] VITALS: Ht 162.6 cm; Wt 70.3 kg
[2023-04-29 09:46] VITALS: BP 125/82; PULSE 112; RESP 16; TEMP 97.7; O2SAT 100
[2023-04-29 11:11] VITALS: BP 116/78; PULSE 97; RESP 16; TEMP 98.1
[2023-04-29 13:11] VITALS: O2SAT 100
== END 2023-04-29 15:20 | disposition home or self-care (01) ==
LOC: MED 09:39
DX: R18.8 Other ascites (principal); Z87.448 Personal history of other diseases of urinary system; Z79.899 Other long term (current) drug therapy; Z88.6 Allergy status to analgesic agent
CPT/HCPCS: 49083; 93005; 99285

== ENCOUNTER 2023-05-04 09:49 | Emergency (ER) | payer MEDICAID ==
[~2023-05-04] VITALS: Ht 162.6 cm; Wt 70.3 kg
[2023-05-04 10:01] VITALS: BP 115/63; PULSE 108; RESP 16; TEMP 98.5; O2SAT 100
[2023-05-04] MEDS ORDERED: MORPHINE SULFATE 4 MG/ML SYR IM ONE (10:20)
[2023-05-04] MEDS ORDERED: ONDANSETRON 4 MG ODT ONE (10:30)
[2023-05-04] MEDS ORDERED: ONDANSETRON 4 MG ODT PO ONE ×2 (10:30)
[2023-05-04 13:12] VITALS: BP 108/58; PULSE 100; RESP 11; TEMP 98.5; O2SAT 100
== END 2023-05-04 13:12 | disposition home or self-care (01) ==
LOC: MED 09:49
DX: R18.8 Other ascites (principal); N18.9 Chronic kidney disease, unspecified; Z88.5 Allergy status to narcotic agent; Z79.899 Other long term (current) drug therapy
CPT/HCPCS: 49083; 96372; 99285; J2270; Q0162

== ENCOUNTER 2023-05-07 14:28 | Emergency (ER) | payer MEDICAID ==
[~2023-05-07] VITALS: Ht 167.6 cm; Wt 76.2 kg
[2023-05-07 14:56] VITALS: BP 91/56; PULSE 91; RESP 17; TEMP 97.4; O2SAT 98
[2023-05-07] MEDS ORDERED: ONDANSETRON 4 MG ODT PO ONE (15:35)
[2023-05-07] MEDS ORDERED: MORPHINE SULFATE 4 MG/ML SYR IM ONE (15:35)
[2023-05-07] MEDS ORDERED: LACT-103 PO (15:51)
[2023-05-07] MEDS ORDERED: MAGN296S70 PO (15:51)
[2023-05-07] MEDS ORDERED: ONDA8TAB87 PO (15:51)
[2023-05-07 15:57] VITALS: BP 91/56; PULSE 91; RESP 17; TEMP 36.33624; O2SAT 98
== END 2023-05-07 15:57 | disposition home or self-care (01) ==
LOC: MED 14:28
DX: K59.00 Constipation, unspecified (principal); R11.2 Nausea with vomiting, unspecified; Z87.448 Personal history of other diseases of urinary system; Z79.899 Other long term (current) drug therapy; Z88.6 Allergy status to analgesic agent
CPT/HCPCS: 96372; 99283; J2270; Q0162

== ENCOUNTER 2023-05-12 11:45 | Emergency (ER) | payer MEDICAID ==
[~2023-05-12] VITALS: Ht 157.5 cm; Wt 70.3 kg
[~2023-05-12 11:45] MED LIST changes: +LACT-103 PO; +MAGN296S70 PO; +ONDA8TAB87 PO
[2023-05-12 12:07] VITALS: BP 105/61; PULSE 80; RESP 18; O2SAT 100
[2023-05-12 12:26] VITALS: O2SAT 100
[2023-05-12] MEDS ORDERED: MORPHINE SULFATE 4 MG/ML SYR IVP ONE (13:25)
[2023-05-12] MEDS ORDERED: ONDANSETRON 4 MG/2 ML VIAL IVP ONE (13:25)
[2023-05-12 13:49] VITALS: BP 105/61; PULSE 80; RESP 18; O2SAT 100
[2023-05-12 14:32] LABS: BASOPHILS # (AUTO) 0.1 K/uL (0.00-0.22); BASOPHILS % (AUTO) 1.5 % (0.0-2.0); EOSINOPHILS # (AUTO) 0.2 K/uL (0-0.4); HEMATOCRIT 20.5 % (36-52); LYMPHOCYTES # (AUTO) 0.7 K/uL (2.0-11.5); LYMPHOCYTES % (AUTO) 13.3 % (20.5-51.1); MEAN CORPUSCULAR HEMOGLOBIN 24 pg (27-31); MEAN CORPUSCULAR HGB CONC 33 g/dL (33-37); MEAN CORPUSCULAR VOLUME 72.7 fL (80-94); MONOCYTES # (AUTO) 0.5 K/uL (0.8-1.0); MONOCYTES % (AUTO) 10.4 % (1.7-9.3); NEUTROPHILS # (AUTO) 3.7 K/uL (1.8-7.7); NEUTROPHILS % (AUTO) 71.8 % (42.2-75.2); PLATELET COUNT (AUTO) 217 K/uL (140-450); RED BLOOD CELL COUNT(AUTO) 2.82 MIL/uL (4.20-6.10); RED CELL DISTRIBUTION WIDTH 18.5 % (11.6-13.7); WHITE BLOOD COUNT (AUTO) 5.1 K/uL (4.8-10.8)
[2023-05-12 14:41] LABS: HEMOGLOBIN 6.7 g/dL (12.0-18.0)
[2023-05-12 14:51] LABS: ALBUMIN 1.8 g/dL (3.4-5.0); CARBON DIOXIDE 25.3 mmol/L (21-32); CREATININE 1.4 mg/dL (0.6-1.3); POTASSIUM 5.3 mmol/L (3.5-5.1); TOTAL BILIRUBIN 0.6 mg/dL (0.0-1.0); TOTAL PROTEIN, SERUM 5.9 g/dL (6.4-8.2)
[2023-05-12 16:23] LABS: INR 1.11 (0.8-1.2); PARTIAL THROMBOPLASTIN TIME 20.5 secs (22-35.6); PROTHROMBIN TIME 11.6 secs (10.8-13.4)
[2023-05-12] MEDS ORDERED: SODIUM ZIRCONIUM CYCLOSILICATE 10 GM POWD.PACK PO ONE (16:35)
[2023-05-12] MEDS ORDERED: SODIUM ZIRCONIUM CYCLOSILICATE 10 GM POWD.PACK ONE (18:55)
== END 2023-05-12 19:30 | disposition home or self-care (01) ==
LOC: MED 11:45
DX: R18.8 Other ascites (principal); K74.60 Unspecified cirrhosis of liver; E87.5 Hyperkalemia; N18.9 Chronic kidney disease, unspecified; Z79.899 Other long term (current) drug therapy
CPT/HCPCS: 36415; 49083; 80053; 83690; 85025; 85610; 85730; 96374; 96375; 99285; J2270; J2405

== ENCOUNTER 2023-05-19 11:18 | Emergency (ER) | payer MEDICAID ==
[~2023-05-19] VITALS: Ht 160 cm; Wt 66.0 kg
[2023-05-19 11:30] VITALS: BP 105/73; PULSE 104; RESP 18; TEMP 97.8; O2SAT 100
[2023-05-19 13:59] LABS: BASOPHILS % (AUTO) 0.7 % (0.0-2.0); EOSINOPHILS % (AUTO) 0.5 % (0.0-4.0); HEMATOCRIT 20.4 % (36-52); LYMPHOCYTES # (AUTO) 0.4 K/uL (2.0-11.5); LYMPHOCYTES % (AUTO) 6.8 % (20.5-51.1); MEAN CORPUSCULAR HEMOGLOBIN 23 pg (27-31); MEAN CORPUSCULAR HGB CONC 32 g/dL (33-37); MEAN CORPUSCULAR VOLUME 71.1 fL (80-94); MONOCYTES # (AUTO) 0.7 K/uL (0.8-1.0); MONOCYTES % (AUTO) 11.1 % (1.7-9.3); NEUTROPHILS # (AUTO) 5.1 K/uL (1.8-7.7); NEUTROPHILS % (AUTO) 80.9 % (42.2-75.2); PLATELET COUNT (AUTO) 212 K/uL (140-450); RED BLOOD CELL COUNT(AUTO) 2.86 MIL/uL (4.20-6.10); WHITE BLOOD COUNT (AUTO) 6.2 K/uL (4.8-10.8)
[2023-05-19 14:07] LABS: HEMOGLOBIN 6.5 g/dL (12.0-18.0)
[2023-05-19 14:15] LABS: ANION GAP 10.7 (8-16); CALCIUM 7.6 mg/dL (8.5-10.1); CARBON DIOXIDE 21.5 mmol/L (21-32); CREATININE 1.5 mg/dL (0.6-1.3); POTASSIUM 5.2 mmol/L (3.5-5.1)
[2023-05-19 14:59] LABS: INR 1.08 (0.8-1.2); PARTIAL THROMBOPLASTIN TIME 26.1 secs (22-35.6); PROTHROMBIN TIME 11.3 secs (10.8-13.4)
[2023-05-19] MEDS ORDERED: MORPHINE SULFATE 4 MG/ML SYR IVP ONE (16:45)
[2023-05-19 19:14] VITALS: BP 112/71; PULSE 84; RESP 12; TEMP 98; O2SAT 99
== END 2023-05-19 19:14 | disposition home or self-care (01) ==
LOC: MED 11:18
DX: R18.8 Other ascites (principal); K72.90 Hepatic failure, unspecified without coma; E87.1 Hypo-osmolality and hyponatremia; D64.9 Anemia, unspecified; N18.9 Chronic kidney disease, unspecified; I25.10 Atherosclerotic heart disease of native coronary artery without angina pectoris; Z88.5 Allergy status to narcotic agent; Z79.899 Other long term (current) drug therapy
CPT/HCPCS: 36415; 36430; 49083; 80048; 85025; 85610; 85730; 86886; 86900; 86901; 86920; 96374; 99291; J2270; P9016

== ENCOUNTER 2023-05-25 12:27 | Emergency (ER) | payer MEDICAID ==
[~2023-05-25] VITALS: Ht 162.6 cm; Wt 70.3 kg
[2023-05-25 13:50] VITALS: BP 116/78; PULSE 95; RESP 20; TEMP 98; O2SAT 100
== END 2023-05-25 15:50 | disposition left against medical advice (07) ==
LOC: MED 12:27
DX: R10.9 Unspecified abdominal pain (principal); Z53.21 Procedure and treatment not carried out due to patient leaving prior to being seen by health care provider
CPT/HCPCS: 99281

== ENCOUNTER 2023-05-26 10:15 | Inpatient (IN) | payer MEDICAID ==
[~2023-05-26] VITALS: Ht 162.6 cm; Wt 70.3 kg
[2023-05-26 10:20] VITALS: BP 129/75; PULSE 100; RESP 20; TEMP 98; O2SAT 100
[2023-05-26 13:00] LABS: BASOPHILS # (AUTO) 0.1 K/uL (0.00-0.22); BASOPHILS % (AUTO) 1.2 % (0.0-2.0); EOSINOPHILS # (AUTO) 0.2 K/uL (0-0.4); EOSINOPHILS % (AUTO) 2.8 % (0.0-4.0); HEMOGLOBIN 7.6 g/dL (12.0-18.0); LYMPHOCYTES # (AUTO) 0.6 K/uL (2.0-11.5); LYMPHOCYTES % (AUTO) 8.3 % (20.5-51.1); MEAN CORPUSCULAR HEMOGLOBIN 24 pg (27-31); MEAN CORPUSCULAR HGB CONC 32 g/dL (33-37); MEAN CORPUSCULAR VOLUME 74.1 fL (80-94); MONOCYTES # (AUTO) 0.6 K/uL (0.8-1.0); MONOCYTES % (AUTO) 9.5 % (1.7-9.3); NEUTROPHILS # (AUTO) 5.2 K/uL (1.8-7.7); NEUTROPHILS % (AUTO) 78.2 % (42.2-75.2); PLATELET COUNT (AUTO) 192 K/uL (140-450); RED BLOOD CELL COUNT(AUTO) 3.23 MIL/uL (4.20-6.10); RED CELL DISTRIBUTION WIDTH 18.3 % (11.6-13.7); WHITE BLOOD COUNT (AUTO) 6.7 K/uL (4.8-10.8)
[2023-05-26 13:26] LABS: INR 1.13 (0.8-1.2); PROTHROMBIN TIME 11.8 secs (10.8-13.4)
[2023-05-26 13:30] LABS: ALBUMIN 1.6 g/dL (3.4-5.0); ANION GAP 13.5 (8-16); CALCIUM 8.2 mg/dL (8.5-10.1); CARBON DIOXIDE 19.6 mmol/L (21-32); CREATININE 1.2 mg/dL (0.6-1.3); TOTAL BILIRUBIN 0.5 mg/dL (0.0-1.0); TOTAL PROTEIN, SERUM 5.7 g/dL (6.4-8.2)
[2023-05-26 13:56] LABS: POTASSIUM 6.1 mmol/L (3.5-5.1)
[2023-05-26] MEDS ORDERED: FUROSEMIDE 40 MG/4 ML VIAL IVP ONE ×2 (14:25→15:37)
[2023-05-26] MEDS ORDERED: CALCIUM CHLORIDE 10% 100 MG/ML SYR IVP ONE ×3 (14:25→16:00)
[2023-05-26] MEDS ORDERED: INSULIN REGULAR, HUMAN 100 UNIT/ML VIAL IVP ONE (14:25)
[2023-05-26] MEDS ORDERED: DEXTROSE 50% 50 ML SYR IVP ONE ×2 (14:25→15:36)
[2023-05-26] MEDS ORDERED: SODIUM BICARBONATE 8.4% PFS 50 MEQ/50 ML SYR IVP ONE ×2 (14:25→15:37)
[2023-05-26 15:19] VITALS: O2SAT 100
[2023-05-26] MEDS ORDERED: CLONIDINE HYDROCHLORIDE 0.1 MG TAB PO PRN (16:10)
[2023-05-26] MEDS ORDERED: NON-FORMULARY ITEM (Lactulose 30 ML) PO PRN (16:10)
[2023-05-26] MEDS ORDERED: MORPHINE SULFATE 4 MG/ML SYR ONE (16:55)
[2023-05-26] MEDS ORDERED: MORPHINE SULFATE 4 MG/ML SYR IVP ONE (16:55)
[2023-05-26 18:15] VITALS: RESP 20; O2SAT 100
[2023-05-26 18:26] VITALS: BP 135/80; PULSE 104; RESP 20; TEMP 98.9; O2SAT 100
[2023-05-26 20:00] VITALS: PULSE 102; RESP 18; O2SAT 99
[2023-05-27 04:00] VITALS: BP 133/79; PULSE 101; RESP 18; TEMP 98; O2SAT 100
[2023-05-27] MEDS ORDERED: ONDANSETRON 4 MG/2 ML VIAL IVP PRN (05:30)
[2023-05-27 06:22] LABS: ANION GAP 13.8 (8-16); CALCIUM 8.3 mg/dL (8.5-10.1); CARBON DIOXIDE 19.8 mmol/L (21-32); CREATININE 1.3 mg/dL (0.6-1.3)
[2023-05-27 06:24] LABS: BASOPHILS # (AUTO) 0.1 K/uL (0.00-0.22); EOSINOPHILS # (AUTO) 0.4 K/uL (0-0.4); EOSINOPHILS % (AUTO) 4.6 % (0.0-4.0); HEMATOCRIT 25.1 % (36-52); HEMOGLOBIN 8.3 g/dL (12.0-18.0); LYMPHOCYTES # (AUTO) 0.8 K/uL (2.0-11.5); LYMPHOCYTES % (AUTO) 10.2 % (20.5-51.1); MEAN CORPUSCULAR HEMOGLOBIN 24 pg (27-31); MEAN CORPUSCULAR HGB CONC 33 g/dL (33-37); MEAN CORPUSCULAR VOLUME 72.9 fL (80-94); MONOCYTES # (AUTO) 0.7 K/uL (0.8-1.0); MONOCYTES % (AUTO) 8.9 % (1.7-9.3); NEUTROPHILS # (AUTO) 5.9 K/uL (1.8-7.7); NEUTROPHILS % (AUTO) 75.3 % (42.2-75.2); PLATELET COUNT (AUTO) 229 K/uL (140-450); RED BLOOD CELL COUNT(AUTO) 3.45 MIL/uL (4.20-6.10); RED CELL DISTRIBUTION WIDTH 18.4 % (11.6-13.7); WHITE BLOOD COUNT (AUTO) 7.9 K/uL (4.8-10.8)
[2023-05-27 06:27] LABS: POTASSIUM 6.6 mmol/L (3.5-5.1)
[2023-05-27] MEDS ORDERED: LACTULOSE 20 GM/30 ML UDC PO ONE (06:31)
[2023-05-27] MEDS ORDERED: SODIUM POLYSTYRENE 15 GM/60 ML UDBTL PO ONE (06:35)
[2023-05-27 08:00] VITALS: BP 119/71; PULSE 93; RESP 18; TEMP 97.7; O2SAT 99
[2023-05-27] MEDS: FUROSEMIDE 20 MG TAB PO SCH (08:40)
[2023-05-27] MEDS ORDERED: ACETAMINOPHEN 325 MG TAB PO PRN (12:10)
[2023-05-27] MEDS: LACTULOSE 20 GM/30 ML UDC PO SCH ×3 (12:19→16:36)
[2023-05-27 12:21] LABS: ANION GAP 11.5 (8-16); CALCIUM 8.4 mg/dL (8.5-10.1); CREATININE 1.3 mg/dL (0.6-1.3); POTASSIUM 5.5 mmol/L (3.5-5.1)
[2023-05-27 16:00] VITALS: BP 121/86; PULSE 99; RESP 18; TEMP 97.5; O2SAT 97
[2023-05-27 20:00] VITALS: BP 122/84; PULSE 101; RESP 18; TEMP 97.8; O2SAT 100
[2023-05-28] VITALS: BP 122/84; PULSE 101; RESP 18; TEMP 97.8; O2SAT 100
[2023-05-28 04:00] VITALS: BP 120/74; PULSE 107; RESP 20; TEMP 98; O2SAT 99
[2023-05-28 06:31] LABS: BASOPHILS # (AUTO) 0.1 K/uL (0.00-0.22); BASOPHILS % (AUTO) 0.7 % (0.0-2.0); EOSINOPHILS # (AUTO) 0.2 K/uL (0-0.4); EOSINOPHILS % (AUTO) 3.2 % (0.0-4.0); HEMATOCRIT 25.5 % (36-52); HEMOGLOBIN 8.3 g/dL (12.0-18.0); LYMPHOCYTES # (AUTO) 0.7 K/uL (2.0-11.5); MEAN CORPUSCULAR HEMOGLOBIN 24 pg (27-31); MEAN CORPUSCULAR HGB CONC 33 g/dL (33-37); MEAN CORPUSCULAR VOLUME 72.9 fL (80-94); MONOCYTES # (AUTO) 0.6 K/uL (0.8-1.0); MONOCYTES % (AUTO) 8.4 % (1.7-9.3); NEUTROPHILS # (AUTO) 5.6 K/uL (1.8-7.7); NEUTROPHILS % (AUTO) 77.7 % (42.2-75.2); PLATELET COUNT (AUTO) 218 K/uL (140-450); RED CELL DISTRIBUTION WIDTH 18.3 % (11.6-13.7); WHITE BLOOD COUNT (AUTO) 7.2 K/uL (4.8-10.8)
[2023-05-28 06:37] LABS: ANION GAP 13.3 (8-16); CARBON DIOXIDE 20.9 mmol/L (21-32); CREATININE 1.3 mg/dL (0.6-1.3); POTASSIUM 5.2 mmol/L (3.5-5.1)
[2023-05-28 08:00] VITALS: BP 141/79; PULSE 102; PULSE 74; PULSE 75; RESP 18; RESP 20; TEMP 97.2; O2SAT 98; O2SAT 99
[2023-05-28] MEDS: FUROSEMIDE 20 MG TAB PO SCH (09:31)
[2023-05-28] MEDS: LACTULOSE 20 GM/30 ML UDC PO SCH ×3 (09:32→17:11)
[2023-05-28 16:00] VITALS: BP 119/71; PULSE 91; PULSE 95; RESP 20; TEMP 97.9; O2SAT 100
[2023-05-28 17:56] VITALS: BP 119/71; PULSE 95; RESP 20; TEMP 97.9
[2023-05-28 18:05] VITALS: BP 119/71; PULSE 95; RESP 20; TEMP 97.9
== END 2023-05-28 18:25 | disposition home or self-care (01) | DRG 280 ==
LOC: MED 10:15 → MTU 16:04
PROVIDERS: ADMIT Internal Medicine; ATTEND Internal Medicine
PROC: 0W9G3ZZ Drainage of Peritoneal Cavity, Percutaneous Approach (ICD-10-PCS; principal; 2023-05-28)
DX: K70.31 Alcoholic cirrhosis of liver with ascites (principal); N17.0 Acute kidney failure with tubular necrosis; E43 Unspecified severe protein-calorie malnutrition; E87.1 Hypo-osmolality and hyponatremia; E83.51 Hypocalcemia; K72.10 Chronic hepatic failure without coma; E87.70 Fluid overload, unspecified; E87.5 Hyperkalemia; Z88.8 Allergy status to other drugs, medicaments and biological substances; Z79.899 Other long term (current) drug therapy
CPT/HCPCS: 36415; 49083; 71045; 76705; 80048; 80053; 82140; 83735; 85025; 85610; 85730; 87081; 93005; 96374; 96375; 99291; J1815; J1940; J2001; J2270; Q0092

== ENCOUNTER 2023-06-02 11:55 | Emergency (ER) | payer MEDICAID ==
[~2023-06-02] VITALS: Ht 162.6 cm; Wt 71.2 kg
[~2023-06-02 11:55] MED LIST changes: -FURO-570 PO; -MAGN296S70 PO; -ONDA8TAB87 PO
[2023-06-02 12:01] VITALS: BP 115/70; PULSE 65; RESP 15; TEMP 99.4; O2SAT 100
[2023-06-02 14:35] VITALS: O2SAT 100
[2023-06-02 15:39] VITALS: BP 95/55; PULSE 86; RESP 16; O2SAT 97
== END 2023-06-02 15:40 | disposition home or self-care (01) ==
LOC: MED 11:55
DX: R18.8 Other ascites (principal); K74.60 Unspecified cirrhosis of liver; Z79.899 Other long term (current) drug therapy
CPT/HCPCS: 49083; 99285

== ENCOUNTER 2023-06-08 09:03 | Emergency (ER) | payer MEDICAID ==
[~2023-06-08] VITALS: Ht 157.5 cm; Wt 68.0 kg
[2023-06-08 09:27] VITALS: BP 114/77; PULSE 90; RESP 18; TEMP 98.7; O2SAT 98
[2023-06-08] MEDS ORDERED: ALBUMIN HUMAN 25% 100 ML IV ONE (10:00)
[2023-06-08] MEDS ORDERED: MORPHINE SULFATE 4 MG/ML SYR IM ONE (11:10)
[2023-06-08 11:29] VITALS: BP 121/48; PULSE 89; RESP 13; TEMP 98; O2SAT 100
[2023-06-08] MEDS ORDERED: ONDANSETRON 4 MG ODT PO ONE (12:10)
[2023-06-08 19:17] LABS: APPEARANCE,SPUN,BODY FLUID CLEAR (CLEAR); APPEARANCE,UNSPUN,BODY FLUID HAZY (CLEAR); COLOR,BODY FLUID PINK (LT YELLOW); RBC, BODY FLUID 10000 /cu. mm.; SPECIMENTYPE,BODY FLUID ASCITES; TOTAL VOLUME,BODY FLUID 1500 mL; WBC, BODY FLUID 0 /cu. mm.
[2023-06-08 19:46] LABS: GLUCOSE,BODY FLUID 109 mg/dL
[2023-06-08 19:47] LABS: PROTEIN, BODY FLUID 0.3 g/dL
== END 2023-06-08 12:05 | disposition left against medical advice (07) ==
LOC: MED 09:03
DX: R18.8 Other ascites (principal); K74.60 Unspecified cirrhosis of liver; I25.10 Atherosclerotic heart disease of native coronary artery without angina pectoris; N18.9 Chronic kidney disease, unspecified; Z88.5 Allergy status to narcotic agent; Z79.899 Other long term (current) drug therapy
CPT/HCPCS: 36415; 49083; 82945; 84157; 87070; 87075; 87205; 89051; 96365; 96366; 96372; 99285; J2270; P9046; Q0162

== ENCOUNTER 2023-06-15 11:12 | Emergency (ER) | payer MEDICAID ==
[~2023-06-15] VITALS: Ht 162.6 cm; Wt 68.0 kg
[2023-06-15 11:28] VITALS: BP 110/63; PULSE 101; RESP 22; TEMP 98.3; O2SAT 100
[2023-06-15 12:29] LABS: BASOPHILS # (AUTO) 0.1 K/uL (0.00-0.22); BASOPHILS % (AUTO) 1.1 % (0.0-2.0); EOSINOPHILS # (AUTO) 0.2 K/uL (0-0.4); EOSINOPHILS % (AUTO) 2.9 % (0.0-4.0); HEMATOCRIT 23.1 % (36-52); HEMOGLOBIN 7.5 g/dL (12.0-18.0); LYMPHOCYTES # (AUTO) 0.6 K/uL (2.0-11.5); LYMPHOCYTES % (AUTO) 8.5 % (20.5-51.1); MEAN CORPUSCULAR HEMOGLOBIN 23 pg (27-31); MEAN CORPUSCULAR HGB CONC 33 g/dL (33-37); MEAN CORPUSCULAR VOLUME 71.9 fL (80-94); MONOCYTES # (AUTO) 0.8 K/uL (0.8-1.0); MONOCYTES % (AUTO) 11.3 % (1.7-9.3); NEUTROPHILS # (AUTO) 5.4 K/uL (1.8-7.7); NEUTROPHILS % (AUTO) 76.2 % (42.2-75.2); PLATELET COUNT (AUTO) 216 K/uL (140-450); RED BLOOD CELL COUNT(AUTO) 3.21 MIL/uL (4.20-6.10); RED CELL DISTRIBUTION WIDTH 18.5 % (11.6-13.7); WHITE BLOOD COUNT (AUTO) 7.1 K/uL (4.8-10.8)
[2023-06-15 12:36] LABS: ANION GAP 11.3 (8-16); CARBON DIOXIDE 23.9 mmol/L (21-32); POTASSIUM 5.2 mmol/L (3.5-5.1)
[2023-06-15 12:45] LABS: CALCIUM 7.7 mg/dL (8.5-10.1); CREATININE 1.5 mg/dL (0.6-1.3)
[2023-06-15 12:48] LABS: ALBUMIN 1.6 g/dL (3.4-5.0); TOTAL PROTEIN, SERUM 6.6 g/dL (6.4-8.2)
[2023-06-15 13:01] LABS: BILIRUBIN,DIRECT 0.3 mg/dL (0.0-0.3); TOTAL BILIRUBIN 0.7 mg/dL (0.0-1.0)
[2023-06-15] MEDS ORDERED: ALBUMIN HUMAN 5 % 250 ML IV ONE (14:40)
[2023-06-15 17:30] VITALS: BP 101/60; PULSE 92; RESP 22; TEMP 98.2; O2SAT 100
== END 2023-06-15 17:30 | disposition home or self-care (01) ==
LOC: MED 11:12
DX: R18.8 Other ascites (principal); K74.60 Unspecified cirrhosis of liver; E87.1 Hypo-osmolality and hyponatremia; E87.5 Hyperkalemia; D64.9 Anemia, unspecified; Z79.899 Other long term (current) drug therapy; Z88.6 Allergy status to analgesic agent
CPT/HCPCS: 36415; 49083; 80048; 80076; 83690; 85025; 96365; 99285; P9041

== ENCOUNTER 2023-06-22 11:12 | Emergency (ER) | payer MEDICAID ==
[~2023-06-22] VITALS: Ht 162.6 cm; Wt 68.0 kg
[~2023-06-22 11:12] MED LIST changes: +FURO-570 PO; +MAGN296S70 PO; +ONDA8TAB87 PO
[2023-06-22 11:35] VITALS: BP 140/86; PULSE 95; RESP 18; TEMP 98.1; O2SAT 100
[2023-06-22] MEDS ORDERED: ALBUMIN HUMAN 25% 100 ML IV ONE (13:35)
[2023-06-22 18:18] VITALS: BP 98/56; PULSE 80; RESP 16; TEMP 97.9; O2SAT 98
== END 2023-06-22 18:15 | disposition home or self-care (01) ==
LOC: MED 11:12
DX: K74.60 Unspecified cirrhosis of liver (principal); R18.8 Other ascites; Z79.899 Other long term (current) drug therapy; Z88.6 Allergy status to analgesic agent
CPT/HCPCS: 49083; 96365; 96366; 99285; P9046

== ENCOUNTER 2023-06-29 11:18 | Emergency (ER) | payer MEDICAID ==
[~2023-06-29] VITALS: Ht 165.1 cm; Wt 70.8 kg
[~2023-06-29 11:18] MED LIST changes: -FURO-570 PO; -MAGN296S70 PO; -ONDA8TAB87 PO
[2023-06-29 11:54] VITALS: BP 107/66; PULSE 108; RESP 20; TEMP 97; O2SAT 98
[2023-06-29] MEDS ORDERED: MORPHINE SULFATE 4 MG/ML SYR IM ONE (13:00)
[2023-06-29 15:58] VITALS: BP 109/67; PULSE 90; RESP 14; TEMP 97; O2SAT 100
[2023-06-29] MEDS ORDERED: FURO-572 PO (15:58)
== END 2023-06-29 16:00 | disposition home or self-care (01) ==
LOC: MED 11:18
DX: R18.8 Other ascites (principal); Z79.899 Other long term (current) drug therapy
CPT/HCPCS: 49083; 96372; 99285; J2270

== ENCOUNTER 2023-07-06 10:56 | Emergency (ER) | payer MEDICAID ==
[~2023-07-06] VITALS: Ht 162.6 cm; Wt 70.3 kg
[2023-07-06 11:07] VITALS: BP 118/80; PULSE 101; RESP 16; TEMP 99.5; O2SAT 99
[2023-07-06] MEDS ORDERED: MORPHINE SULFATE 4 MG/ML SYR IM ONE (11:30)
[2023-07-06 12:25] VITALS: BP 118/80; PULSE 101; RESP 16; TEMP 99.5; O2SAT 99
== END 2023-07-06 14:56 | disposition home or self-care (01) ==
LOC: MED 10:56
DX: R18.8 Other ascites (principal); R14.0 Abdominal distension (gaseous); Z79.899 Other long term (current) drug therapy
CPT/HCPCS: 49083; 96372; 99285; J2270

== ENCOUNTER 2023-07-13 09:08 | Emergency (ER) | payer MEDICAID ==
[~2023-07-13] VITALS: Ht 162.6 cm; Wt 70.3 kg
[2023-07-13 09:13] VITALS: BP 127/79; PULSE 103; RESP 20; TEMP 98.4; O2SAT 100
[2023-07-13 10:15] LABS: BASOPHILS # (AUTO) 0.1 K/uL (0.00-0.22); BASOPHILS % (AUTO) 1.6 % (0.0-2.0); EOSINOPHILS # (AUTO) 0.2 K/uL (0-0.4); HEMATOCRIT 22.7 % (36-52); HEMOGLOBIN 7.3 g/dL (12.0-18.0); LYMPHOCYTES # (AUTO) 0.5 K/uL (2.0-11.5); LYMPHOCYTES % (AUTO) 11.4 % (20.5-51.1); MEAN CORPUSCULAR HEMOGLOBIN 23 pg (27-31); MEAN CORPUSCULAR HGB CONC 32 g/dL (33-37); MEAN CORPUSCULAR VOLUME 69.9 fL (80-94); MONOCYTES # (AUTO) 0.3 K/uL (0.8-1.0); MONOCYTES % (AUTO) 7.5 % (1.7-9.3); NEUTROPHILS # (AUTO) 3.5 K/uL (1.8-7.7); NEUTROPHILS % (AUTO) 75.5 % (42.2-75.2); PLATELET COUNT (AUTO) 219 K/uL (140-450); RED BLOOD CELL COUNT(AUTO) 3.25 MIL/uL (4.20-6.10); RED CELL DISTRIBUTION WIDTH 18.5 % (11.6-13.7); WHITE BLOOD COUNT (AUTO) 4.6 K/uL (4.8-10.8)
[2023-07-13 10:29] LABS: ANION GAP 10.2 (8-16); CALCIUM 8.1 mg/dL (8.5-10.1); CARBON DIOXIDE 25.3 mmol/L (21-32); CREATININE 1.5 mg/dL (0.6-1.3); POTASSIUM 5.5 mmol/L (3.5-5.1)
[2023-07-13 10:34] LABS: INR 1.22 (0.8-1.2); PARTIAL THROMBOPLASTIN TIME 27.9 secs (22-35.6); PROTHROMBIN TIME 12.7 secs (10.8-13.4)
[2023-07-13 10:36] LABS: ALBUMIN 1.5 g/dL (3.4-5.0); BILIRUBIN,DIRECT 0.3 mg/dL (0.0-0.3); TOTAL BILIRUBIN 0.5 mg/dL (0.0-1.0); TOTAL PROTEIN, SERUM 6.8 g/dL (6.4-8.2)
[2023-07-13] MEDS ORDERED: SODIUM ZIRCONIUM CYCLOSILICATE 10 GM POWD.PACK PO ONE (11:15)
[2023-07-13 17:37] VITALS: BP 125/73; PULSE 88; RESP 19; O2SAT 98
== END 2023-07-13 17:38 | disposition home or self-care (01) ==
LOC: MED 09:08
DX: R18.8 Other ascites (principal); K74.60 Unspecified cirrhosis of liver; D64.9 Anemia, unspecified; D72.819 Decreased white blood cell count, unspecified; E87.5 Hyperkalemia; N18.9 Chronic kidney disease, unspecified; Z79.899 Other long term (current) drug therapy
CPT/HCPCS: 36415; 49083; 80048; 80076; 83690; 85025; 85610; 85730; 99285

== ENCOUNTER 2023-07-20 10:29 | Emergency (ER) | payer MEDICAID ==
[~2023-07-20] VITALS: Ht 162.6 cm; Wt 70.3 kg
[2023-07-20 11:15] VITALS: BP 128/72; PULSE 92; RESP 18; TEMP 98; O2SAT 99
[2023-07-20 13:30] VITALS: O2SAT 99
[2023-07-20] MEDS: ALBUMIN HUMAN 25% 100 ML IV ONE (13:37)
[2023-07-20 15:37] VITALS: O2SAT 100
[2023-07-20 18:31] VITALS: BP 108/68; PULSE 80; RESP 18; TEMP 98; O2SAT 100
== END 2023-07-20 18:31 | disposition home or self-care (01) ==
LOC: MED 10:29
DX: R18.8 Other ascites (principal); K74.60 Unspecified cirrhosis of liver; Z79.899 Other long term (current) drug therapy
CPT/HCPCS: 49083; 96365; 99285; P9046

== ENCOUNTER 2023-07-28 09:05 | Emergency (ER) | payer MEDICAID ==
[~2023-07-28] VITALS: Ht 162.6 cm; Wt 70.3 kg
[2023-07-28 09:14] VITALS: BP 120/73; PULSE 98; RESP 18; TEMP 98.7; O2SAT 100
[2023-07-28] MEDS: ALBUMIN HUMAN 25% 100 ML IV ONE (12:13)
[2023-07-28] MEDS ORDERED: FURO-572 PO (13:45)
[2023-07-28 15:26] VITALS: BP 117/68; PULSE 81; RESP 17; TEMP 98.4; O2SAT 100
== END 2023-07-28 15:26 | disposition home or self-care (01) ==
LOC: MED 09:05
DX: R18.8 Other ascites (principal); I50.9 Heart failure, unspecified; Z79.899 Other long term (current) drug therapy; Z88.6 Allergy status to analgesic agent
CPT/HCPCS: 49083; 96365; 99285; J7030; P9046

== ENCOUNTER 2023-08-03 09:58 | Emergency (ER) | payer MEDICAID ==
[~2023-08-03] VITALS: Ht 157.5 cm; Wt 74.8 kg
[2023-08-03 10:08] VITALS: BP 152/90; PULSE 105; RESP 20; O2SAT 99
[2023-08-03] MEDS: MORPHINE SULFATE 4 MG/ML SYR IM ONE (10:54)
[2023-08-03] MEDS: ONDANSETRON 4 MG ODT PO ONE (11:04)
[2023-08-03] MEDS ORDERED: ONDA8TAB87 PO (11:40)
[2023-08-03 16:57] VITALS: BP 123/72; PULSE 83; RESP 16; TEMP 98.2; O2SAT 99
== END 2023-08-03 16:50 | disposition home or self-care (01) ==
LOC: MED 09:58
DX: R18.8 Other ascites (principal); Z79.899 Other long term (current) drug therapy; Z88.6 Allergy status to analgesic agent
CPT/HCPCS: 49083; 96372; 99285; J2270; Q0162

== ENCOUNTER 2023-08-10 09:22 | Emergency (ER) | payer MEDICAID ==
[~2023-08-10] VITALS: Ht 162.6 cm; Wt 70.3 kg
[~2023-08-10 09:22] MED LIST changes: +ONDA8TAB87 PO
[2023-08-10 09:28] VITALS: BP 122/80; PULSE 98; RESP 18; TEMP 98.2; O2SAT 100
[2023-08-10 09:35] VITALS: TEMP 98.3
[2023-08-10] MEDS: MORPHINE SULFATE 4 MG/ML SYR IM ONE (09:59)
[2023-08-10] MEDS: ONDANSETRON 4 MG ODT PO ONE (10:03)
[2023-08-10 13:54] VITALS: BP 120/55; PULSE 89; RESP 13; O2SAT 100
== END 2023-08-10 13:54 | disposition home or self-care (01) ==
LOC: MED 09:22
DX: R18.8 Other ascites (principal); Z88.5 Allergy status to narcotic agent; Z79.899 Other long term (current) drug therapy
CPT/HCPCS: 49083; 96372; 99285; J2270; Q0162

== ENCOUNTER 2023-08-18 11:16 | Emergency (ER) | payer MEDICAID ==
[~2023-08-18] VITALS: Ht 162.6 cm; Wt 70.3 kg
[2023-08-18 11:22] VITALS: BP 118/79; PULSE 105; RESP 18; TEMP 98.4; O2SAT 100
[2023-08-18 12:03] LABS: BASOPHILS # (AUTO) 0.1 K/uL (0.00-0.22); BASOPHILS % (AUTO) 1.2 % (0.0-2.0); EOSINOPHILS # (AUTO) 0.3 K/uL (0-0.4); HEMATOCRIT 23.6 % (36-52); HEMOGLOBIN 7.5 g/dL (12.0-18.0); LYMPHOCYTES # (AUTO) 0.5 K/uL (2.0-11.5); LYMPHOCYTES % (AUTO) 9.2 % (20.5-51.1); MEAN CORPUSCULAR HEMOGLOBIN 22 pg (27-31); MEAN CORPUSCULAR HGB CONC 32 g/dL (33-37); MEAN CORPUSCULAR VOLUME 68.9 fL (80-94); MONOCYTES # (AUTO) 0.6 K/uL (0.8-1.0); MONOCYTES % (AUTO) 10.2 % (1.7-9.3); NEUTROPHILS # (AUTO) 4.2 K/uL (1.8-7.7); NEUTROPHILS % (AUTO) 73.4 % (42.2-75.2); PLATELET COUNT (AUTO) 226 K/uL (140-450); RED BLOOD CELL COUNT(AUTO) 3.43 MIL/uL (4.20-6.10); WHITE BLOOD COUNT (AUTO) 5.7 K/uL (4.8-10.8)
[2023-08-18 12:17] LABS: ANION GAP 11.4 (8-16); CALCIUM 7.7 mg/dL (8.5-10.1); CARBON DIOXIDE 19.9 mmol/L (21-32); CREATININE 1.3 mg/dL (0.6-1.3)
[2023-08-18 12:21] LABS: ALBUMIN 1.6 g/dL (3.4-5.0); BILIRUBIN,DIRECT 0.3 mg/dL (0.0-0.3); POTASSIUM 6.3 mmol/L (3.5-5.1); TOTAL BILIRUBIN 0.5 mg/dL (0.0-1.0); TOTAL PROTEIN, SERUM 6.9 g/dL (6.4-8.2)
[2023-08-18 13:45] VITALS: PULSE 120; PULSE 82; RESP 16; O2SAT 98
[2023-08-18] MEDS: ALBUTEROL 0.083% 2.5 MG/3 ML NEBU INH ONE ×2 (13:45→14:08)
[2023-08-18 14:09] VITALS: PULSE 91; RESP 18; O2SAT 97
[2023-08-18] MEDS ORDERED: CALCIUM GLUC 1 GM/50 mL NS BAG 50 ML IV ONE (14:11)
[2023-08-18] MEDS: DEXTROSE 50% 50 ML SYR IVP ONE (14:21)
[2023-08-18] MEDS: INSULIN REGULAR, HUMAN 100 UNIT/ML VIAL IV ONE (14:25)
[2023-08-18] MEDS: CALCIUM GLUCONATE 10% 1,000 MG in NACL 0.9% 50 ML IV ONE (14:32)
[2023-08-18] MEDS: ALBUMIN HUMAN 5 % 250 ML IV ONE (15:01)
[2023-08-18 17:39] VITALS: BP 118/67; PULSE 100; RESP 12; O2SAT 100
== END 2023-08-18 17:39 | disposition home or self-care (01) ==
LOC: MED 11:16
DX: R18.8 Other ascites (principal); Z79.1 Long term (current) use of non-steroidal anti-inflammatories (NSAID); Z79.899 Other long term (current) drug therapy
CPT/HCPCS: 49083; 80048; 80076; 82948; 83690; 84484; 85025; 93005; 94640; 96365; 96366; 96368; 96375; 99291; J0610; J1815; J7613; P9041

== ENCOUNTER 2023-08-24 10:23 | Emergency (ER) | payer MEDICAID ==
[~2023-08-24] VITALS: Ht 162.6 cm; Wt 70.3 kg
[2023-08-24 10:30] VITALS: BP 121/72; PULSE 98; RESP 19; TEMP 97.7; O2SAT 100
[2023-08-24 10:55] VITALS: O2SAT 100
[2023-08-24] MEDS: MORPHINE SULFATE 4 MG/ML SYR IM ONE (10:55)
[2023-08-24] MEDS ORDERED: SODI10PO PO (11:23)
[2023-08-24 13:07] VITALS: BP 106/68; PULSE 82; RESP 12; TEMP 97.3; O2SAT 100
== END 2023-08-24 14:26 | disposition home or self-care (01) ==
LOC: MED 10:23
DX: R18.8 Other ascites (principal); Z79.899 Other long term (current) drug therapy; Z88.6 Allergy status to analgesic agent
CPT/HCPCS: 49083; 96372; 99285; J2270

== ENCOUNTER 2023-08-29 09:21 | Inpatient (IN) | payer MEDICAID ==
[~2023-08-29] VITALS: Ht 162.6 cm; Wt 68.5 kg
[~2023-08-29 09:21] MED LIST changes: +SODI10PO PO
[2023-08-29 09:50] VITALS: BP 123/79; PULSE 86; RESP 16; TEMP 97.5; O2SAT 99
[2023-08-29 11:47] LABS: BASOPHILS # (AUTO) 0.1 K/uL (0.00-0.22); EOSINOPHILS # (AUTO) 0.5 K/uL (0-0.4); MEAN CORPUSCULAR HGB CONC 32 g/dL (33-37); MONOCYTES # (AUTO) 0.5 K/uL (0.8-1.0); NEUTROPHILS # (AUTO) 4.4 K/uL (1.8-7.7)
[2023-08-29 11:53] LABS: MEAN CORPUSCULAR HEMOGLOBIN 22 pg (27-31)
[2023-08-29 11:55] LABS: HEMATOCRIT 21.9 % (36-52); RED BLOOD CELL COUNT(AUTO) 3.15 MIL/uL (4.20-6.10)
[2023-08-29 11:56] LABS: BASOPHILS % (AUTO) 1.1 % (0.0-2.0); EOSINOPHILS % (AUTO) 7.6 % (0.0-4.0); LYMPHOCYTES # (AUTO) 0.6 K/uL (2.0-11.5); LYMPHOCYTES % (AUTO) 10.4 % (20.5-51.1); NEUTROPHILS % (AUTO) 72.9 % (42.2-75.2); PLATELET COUNT (AUTO) 190 K/uL (140-450)
[2023-08-29 11:58] LABS: MEAN CORPUSCULAR VOLUME 69.6 fL (80-94)
[2023-08-29 12:06] LABS: INR 1.11 (0.8-1.2); PARTIAL THROMBOPLASTIN TIME 28.4 secs (22-35.6); PROTHROMBIN TIME 11.6 secs (10.8-13.4)
[2023-08-29 13:03] LABS: ALBUMIN 1.6 g/dL (3.4-5.0); ANION GAP 12.9 (8-16); CALCIUM 7.8 mg/dL (8.5-10.1); CARBON DIOXIDE 18.7 mmol/L (21-32); CREATININE 1.3 mg/dL (0.6-1.3); POTASSIUM 6.6 mmol/L (3.5-5.1); TOTAL BILIRUBIN 0.6 mg/dL (0.0-1.0); TOTAL PROTEIN, SERUM 5.7 g/dL (6.4-8.2)
[2023-08-29] MEDS: CALCIUM GLUCONATE 10% 1,000 MG in NACL 0.9% 50 ML IV ONE (14:00)
[2023-08-29] MEDS ORDERED: SODIUM BICARBONATE 8.4% 50 MEQ in DEXTROSE 5% 1,000 ML IV SCH (14:15)
[2023-08-29] MEDS: fentaNYL citrate 0.05 MG/ML VIAL IVP ONE (14:20)
[2023-08-29 14:49] LABS: ALBUMIN 1.5 g/dL (3.4-5.0); ANION GAP 9.7 (8-16); CALCIUM 7.8 mg/dL (8.5-10.1); CARBON DIOXIDE 20.9 mmol/L (21-32); CREATININE 1.3 mg/dL (0.6-1.3); TOTAL BILIRUBIN 0.8 mg/dL (0.0-1.0); TOTAL PROTEIN, SERUM 5.6 g/dL (6.4-8.2)
[2023-08-29 14:58] LABS: POTASSIUM 6.6 mmol/L (3.5-5.1)
[2023-08-29] MEDS ORDERED: SODIUM BICARBONATE 8.4% PFS 50 MEQ/50 ML SYR IVP ONE (15:16)
[2023-08-29] MEDS ORDERED: CALCIUM GLUC 1 GM/50 mL NS BAG 50 ML IV ONE (15:16)
[2023-08-29] MEDS: SODIUM BICARBONATE 8.4% PFS 50 MEQ/50 ML SYR IVP ONE (15:22)
[2023-08-29] MEDS: SODIUM ZIRCONIUM CYCLOSILICATE 10 GM POWD.PACK PO ONE (15:26)
[2023-08-29] MEDS ORDERED: FURO20TA8 PO (15:31)
[2023-08-29] MEDS ORDERED: METOCLOPRAMIDE 10 MG/2 ML INJ VIAL IVP PRN (15:45)
[2023-08-29 15:51] LABS: APPEARANCE,URINE CLEAR (CLEAR); BILIRUBIN,URINE NEGATIVE (NEGATIVE); BLOOD, URINE TRACE-I (NEGATIVE); COLOR,URINE YELLOW (YELLOW); LEUKOCYTE ESTERASE ,URINE NEGATIVE (NEGATIVE); NITRITE, URINE NEGATIVE (NEGATIVE); PROTEIN,URINE NEGATIVE (NEGATIVE); UGLUCOSE NEGATIVE (NEGATIVE); UROBILINOGEN,URINE 0.2 EU/dL (0.2 - 1)
[2023-08-29] MEDS: DEXTROSE 50% 50 ML SYR IVP ONE (15:53)
[2023-08-29] MEDS: FUROSEMIDE 40 MG/4 ML VIAL IVP ONE (15:57)
[2023-08-29 16:07] LABS: BACTERIA,URINE FEW /HPF (None Seen); RBC,URINE 0-5 /HPF (0-5); SQUAMOUS EPITHELIAL CELL,UR 0-3 (FEW) /LPF (0-3 (FEW)); WBC,URINE 0-5 /HPF (0-5)
[2023-08-29] MEDS: INSULIN REGULAR, HUMAN 100 UNIT/ML VIAL IVP ONE (16:07)
[2023-08-29 16:22] LABS: FLU A ANTIGEN negative (NEGATIVE); FLU B ANTIGEN NEGATIVE (NEGATIVE)
[2023-08-29] MEDS: DEXTROSE 50% 50 ML SYR IVP PRN (17:32)
[2023-08-29] MEDS: LACTULOSE 20 GM/30 ML UDC PO SCH (17:34)
[2023-08-29 22:08] VITALS: PULSE 74; RESP 17; O2SAT 97
[2023-08-29 22:32] VITALS: BP 119/71; PULSE 74; RESP 19; TEMP 98.2; O2SAT 97
[2023-08-30] VITALS (8 sets, daily range): BP systolic 116–143; BP diastolic 60–90; PULSE 69–102; RESP 18–19; TEMP 97.5–98.8; O2SAT 95–98
[2023-08-30 06:42] LABS: BASOPHILS # (AUTO) 0.1 K/uL (0.00-0.22); BASOPHILS % (AUTO) 0.8 % (0.0-2.0); EOSINOPHILS # (AUTO) 0.5 K/uL (0-0.4); EOSINOPHILS % (AUTO) 6.4 % (0.0-4.0); HEMATOCRIT 24.3 % (36-52); HEMOGLOBIN 7.8 g/dL (12.0-18.0); LYMPHOCYTES # (AUTO) 0.7 K/uL (2.0-11.5); LYMPHOCYTES % (AUTO) 10.3 % (20.5-51.1); MEAN CORPUSCULAR HEMOGLOBIN 22 pg (27-31); MEAN CORPUSCULAR HGB CONC 32 g/dL (33-37); MEAN CORPUSCULAR VOLUME 69.6 fL (80-94); MONOCYTES # (AUTO) 0.6 K/uL (0.8-1.0); MONOCYTES % (AUTO) 9.2 % (1.7-9.3); NEUTROPHILS # (AUTO) 5.2 K/uL (1.8-7.7); NEUTROPHILS % (AUTO) 73.3 % (42.2-75.2); PLATELET COUNT (AUTO) 220 K/uL (140-450); RED CELL DISTRIBUTION WIDTH 20.1 % (11.6-13.7)
[2023-08-30 06:51] LABS: ALBUMIN 1.6 g/dL (3.4-5.0); ANION GAP 12.5 (8-16); CALCIUM 8.1 mg/dL (8.5-10.1); CARBON DIOXIDE 21.3 mmol/L (21-32); CREATININE 1.3 mg/dL (0.6-1.3); POTASSIUM 5.8 mmol/L (3.5-5.1); TOTAL BILIRUBIN 0.6 mg/dL (0.0-1.0); TOTAL PROTEIN, SERUM 6.1 g/dL (6.4-8.2)
[2023-08-30] MEDS: FUROSEMIDE 20 MG TAB PO SCH (09:00)
[2023-08-30] MEDS ORDERED: SODIUM ZIRCONIUM CYCLOSILICATE 10 GM POWD.PACK PO ONE (09:25)
[2023-08-30] MEDS: SODIUM ZIRCONIUM CYCLOSILICATE 10 GM POWD.PACK PO SCH ×2 (09:44→13:25)
[2023-08-30] MEDS: MORPHINE SULFATE 2 MG/ML SYR IVP PRN (10:51)
[2023-08-30] MEDS: ALBUMIN HUMAN 25% 50 ML IV SCH (13:01)
[2023-08-30 14:04] LABS: ANION GAP 12.4 (8-16); CALCIUM 7.8 mg/dL (8.5-10.1); CARBON DIOXIDE 21.8 mmol/L (21-32); CREATININE 1.3 mg/dL (0.6-1.3); POTASSIUM 5.2 mmol/L (3.5-5.1)
[2023-08-30] MEDS: NACL 0.9% 500 ML IV SCH (14:23)
[2023-08-30] MEDS: SODIUM ZIRCONIUM CYCLOSILICATE 10 GM POWD.PACK PO ONE (21:52)
[2023-08-30] MEDS: ACETAMINOPHEN 325 MG TAB PO ONE (23:07)
[2023-08-31] VITALS: BP 107/77; PULSE 92; PULSE 98; RESP 18; TEMP 98; O2SAT 99
[2023-08-31] MEDS: METOCLOPRAMIDE 10 MG/2 ML INJ VIAL IVP PRN (01:23)
[2023-08-31 04:00] VITALS: BP 113/69; PULSE 85; PULSE 88; RESP 20; TEMP 97.5; O2SAT 100
[2023-08-31 06:51] LABS: BASOPHILS % (AUTO) 0.9 % (0.0-2.0); EOSINOPHILS # (AUTO) 0.3 K/uL (0-0.4); EOSINOPHILS % (AUTO) 6.5 % (0.0-4.0); HEMATOCRIT 21.8 % (36-52); LYMPHOCYTES # (AUTO) 0.7 K/uL (2.0-11.5); LYMPHOCYTES % (AUTO) 14.1 % (20.5-51.1); MEAN CORPUSCULAR HEMOGLOBIN 22 pg (27-31); MEAN CORPUSCULAR HGB CONC 32 g/dL (33-37); MEAN CORPUSCULAR VOLUME 69.2 fL (80-94); MONOCYTES # (AUTO) 0.5 K/uL (0.8-1.0); MONOCYTES % (AUTO) 9.9 % (1.7-9.3); NEUTROPHILS # (AUTO) 3.5 K/uL (1.8-7.7); NEUTROPHILS % (AUTO) 68.6 % (42.2-75.2); PLATELET COUNT (AUTO) 192 K/uL (140-450); RED BLOOD CELL COUNT(AUTO) 3.16 MIL/uL (4.20-6.10); RED CELL DISTRIBUTION WIDTH 20.2 % (11.6-13.7); WHITE BLOOD COUNT (AUTO) 5.1 K/uL (4.8-10.8)
[2023-08-31 07:13] LABS: ALBUMIN 2.1 g/dL (3.4-5.0); ANION GAP 10.9 (8-16); CALCIUM 7.8 mg/dL (8.5-10.1); CARBON DIOXIDE 22.7 mmol/L (21-32); CREATININE 1.2 mg/dL (0.6-1.3); POTASSIUM 4.6 mmol/L (3.5-5.1); TOTAL BILIRUBIN 0.7 mg/dL (0.0-1.0); TOTAL PROTEIN, SERUM 5.6 g/dL (6.4-8.2)
[2023-08-31 08:00] VITALS: BP 110/68; PULSE 84; PULSE 87; RESP 18; RESP 19; TEMP 98.2; O2SAT 100; O2SAT 99
[2023-08-31 11:18] VITALS: TEMP 97.8
[2023-08-31 12:00] VITALS: BP 114/64; PULSE 113; PULSE 90; RESP 18; TEMP 98.4; O2SAT 99
[2023-08-31] MEDS: metroNIDAZOLE 500 MG TAB PO SCH (13:01)
[2023-08-31] MEDS ORDERED: ACETAMINOPHEN 325 MG TAB PO PRN (16:00)
[2023-08-31 18:37] VITALS: BP 102/53; PULSE 101; PULSE 103; RESP 18; TEMP 97.4; O2SAT 100
== END 2023-08-31 20:40 | disposition left against medical advice (07) ==
LOC: MED 09:21 → MMU 15:50 → MTU 21:15
PROVIDERS: ADMIT Family Medicine; ATTEND Family Medicine
PROC: 0W9G3ZZ Drainage of Peritoneal Cavity, Percutaneous Approach (ICD-10-PCS; principal; 2023-08-29)
PROC: 0W9G3ZZ Drainage of Peritoneal Cavity, Percutaneous Approach (ICD-10-PCS; 2023-08-30)
DX: K74.60 Unspecified cirrhosis of liver (principal); N17.0 Acute kidney failure with tubular necrosis; G93.40 Encephalopathy, unspecified; E43 Unspecified severe protein-calorie malnutrition; K76.6 Portal hypertension; R18.8 Other ascites; A08.4 Viral intestinal infection, unspecified; E87.5 Hyperkalemia; E87.1 Hypo-osmolality and hyponatremia; R91.8 Other nonspecific abnormal finding of lung field; F10.10 Alcohol abuse, uncomplicated; Y90.9 Presence of alcohol in blood, level not specified; E87.70 Fluid overload, unspecified; Z88.8 Allergy status to other drugs, medicaments and biological substances; Z68.25 Body mass index [BMI] 25.0-25.9, adult
CPT/HCPCS: 36415; 49083; 71045; 76705; 80048; 80053; 81001; 82140; 82948; 83605; 84300; 85025; 85610; 85730; 87040; 87081; 93005; 96365; 96375; 96376; 99291; J0610; J0696; J1815; J1940; J2001; J2270; J2765; J7060; P9046; Q0092

== ENCOUNTER 2023-09-06 08:05 | Inpatient (IN) | payer MEDICAID ==
[~2023-09-06] VITALS: Ht 162.6 cm; Wt 62.1 kg
[~2023-09-06 08:05] MED LIST changes: +FURO20TA8 PO
[2023-09-06 08:11] VITALS: BP 125/77; PULSE 111; RESP 20; TEMP 98.3; O2SAT 99
[2023-09-06 08:42] LABS: BASOPHILS # (AUTO) 0.1 K/uL (0.00-0.22); BASOPHILS % (AUTO) 1.1 % (0.0-2.0); EOSINOPHILS # (AUTO) 0.5 K/uL (0-0.4); EOSINOPHILS % (AUTO) 8.5 % (0.0-4.0); HEMATOCRIT 21.4 % (36-52); LYMPHOCYTES # (AUTO) 0.7 K/uL (2.0-11.5); LYMPHOCYTES % (AUTO) 12.5 % (20.5-51.1); MEAN CORPUSCULAR HEMOGLOBIN 22 pg (27-31); MEAN CORPUSCULAR HGB CONC 32 g/dL (33-37); MONOCYTES # (AUTO) 0.5 K/uL (0.8-1.0); MONOCYTES % (AUTO) 9.5 % (1.7-9.3); NEUTROPHILS # (AUTO) 3.6 K/uL (1.8-7.7); NEUTROPHILS % (AUTO) 68.4 % (42.2-75.2); PLATELET COUNT (AUTO) 222 K/uL (140-450); RED BLOOD CELL COUNT(AUTO) 3.06 MIL/uL (4.20-6.10); WHITE BLOOD COUNT (AUTO) 5.3 K/uL (4.8-10.8)
[2023-09-06 08:45] LABS: HEMOGLOBIN 6.8 g/dL (12.0-18.0)
[2023-09-06 08:59] LABS: ALBUMIN 2.1 g/dL (3.4-5.0); BILIRUBIN,DIRECT 0.3 mg/dL (0.0-0.3); TOTAL BILIRUBIN 0.9 mg/dL (0.0-1.0)
[2023-09-06 09:02] LABS: CALCIUM 7.6 mg/dL (8.5-10.1); CARBON DIOXIDE 22.5 mmol/L (21-32); CREATININE 1.5 mg/dL (0.6-1.3); POTASSIUM 4.5 mmol/L (3.5-5.1)
[2023-09-06] MEDS: MORPHINE SULFATE 4 MG/ML SYR IVP ONE (09:29)
[2023-09-06] MEDS: ONDANSETRON 4 MG/2 ML VIAL IVP ONE (09:46)
[2023-09-06 09:49] LABS: INR 1.16 (0.8-1.2); PARTIAL THROMBOPLASTIN TIME 28.7 secs (22-35.6); PROTHROMBIN TIME 12.1 secs (10.8-13.4)
[2023-09-06] MEDS ORDERED: ALBUMIN HUMAN 25% 100 ML IV ONE (14:27)
[2023-09-06] MEDS: ALBUMIN HUMAN 25% 100 ML IV ONE (14:28)
[2023-09-06 15:00] VITALS: PULSE 89; RESP 14; O2SAT 99
[2023-09-06 16:00] VITALS: BP 114/69; PULSE 89; PULSE 90; RESP 18; TEMP 97.4; O2SAT 100
[2023-09-06] MEDS: FUROSEMIDE 20 MG/2 ML VIAL IVP SCH (16:45)
[2023-09-06 17:19] LABS: HEMATOCRIT 25.3 % (36-52); HEMOGLOBIN 8.3 g/dL (12.0-18.0)
[2023-09-06 20:00] VITALS: BP 107/63; PULSE 91; RESP 18; TEMP 98.4; O2SAT 100
[2023-09-06 20:09] VITALS: PULSE 92
[2023-09-06] MEDS: ZOLPIDEM 5 MG TAB PO SCH (21:08)
[2023-09-07] VITALS (8 sets, daily range): BP systolic 99–124; BP diastolic 47–68; PULSE 95–118; RESP 18–19; TEMP 97.2–98.6; O2SAT 95–99
[2023-09-07 07:07] LABS: ALBUMIN 2.1 g/dL (3.4-5.0); ANION GAP 12.1 (8-16); CALCIUM 7.6 mg/dL (8.5-10.1); CARBON DIOXIDE 22.9 mmol/L (21-32); CREATININE 1.3 mg/dL (0.6-1.3); TOTAL PROTEIN, SERUM 5.1 g/dL (6.4-8.2)
[2023-09-07 07:39] LABS: BASOPHILS # (AUTO) 0.1 K/uL (0.00-0.22); EOSINOPHILS # (AUTO) 0.6 K/uL (0-0.4); EOSINOPHILS % (AUTO) 9.3 % (0.0-4.0); HEMATOCRIT 24.2 % (36-52); HEMOGLOBIN 7.7 g/dL (12.0-18.0); LYMPHOCYTES # (AUTO) 0.7 K/uL (2.0-11.5); LYMPHOCYTES % (AUTO) 11.1 % (20.5-51.1); MEAN CORPUSCULAR HEMOGLOBIN 23 pg (27-31); MEAN CORPUSCULAR HGB CONC 32 g/dL (33-37); MONOCYTES # (AUTO) 0.6 K/uL (0.8-1.0); NEUTROPHILS # (AUTO) 4.4 K/uL (1.8-7.7); NEUTROPHILS % (AUTO) 69.6 % (42.2-75.2); PLATELET COUNT (AUTO) 201 K/uL (140-450); RED BLOOD CELL COUNT(AUTO) 3.36 MIL/uL (4.20-6.10); RED CELL DISTRIBUTION WIDTH 21.9 % (11.6-13.7); WHITE BLOOD COUNT (AUTO) 6.4 K/uL (4.8-10.8)
[2023-09-07] MEDS: PANTOPRAZOLE 40 MG INJ VIAL IVP SCH (10:16)
[2023-09-07] MEDS ORDERED: CLINICAL MONITORING MC PRN (17:05)
[2023-09-07] MEDS: ACETAMINOPHEN 325 MG TAB PO PRN (17:45)
[2023-09-07] MEDS: SODIUM ZIRCONIUM CYCLOSILICATE 10 GM POWD.PACK PO SCH ×2 (17:45→21:22)
[2023-09-07] MEDS ORDERED: ZOLPIDEM 5 MG TAB PO SCH (21:00)
[2023-09-07] MEDS: FUROSEMIDE 40 MG/4 ML VIAL IVP SCH (21:47)
[2023-09-08] VITALS: BP 116/72; PULSE 88; RESP 16; TEMP 98.2; O2SAT 97
[2023-09-08 04:00] VITALS: BP 120/70; PULSE 70; RESP 18; TEMP 97.6; O2SAT 98
[2023-09-08 07:18] LABS: BASOPHILS # (AUTO) 0.1 K/uL (0.00-0.22); EOSINOPHILS # (AUTO) 0.4 K/uL (0-0.4); HEMOGLOBIN 7.2 g/dL (12.0-18.0); LYMPHOCYTES # (AUTO) 0.7 K/uL (2.0-11.5); MEAN CORPUSCULAR HEMOGLOBIN 24 pg (27-31); MONOCYTES # (AUTO) 0.6 K/uL (0.8-1.0); MONOCYTES % (AUTO) 11.4 % (1.7-9.3)
[2023-09-08 07:50] LABS: BASOPHILS % (AUTO) 1.1 % (0.0-2.0); EOSINOPHILS % (AUTO) 8.6 % (0.0-4.0); LYMPHOCYTES % (AUTO) 13.4 % (20.5-51.1); MEAN CORPUSCULAR HGB CONC 33 g/dL (33-37); MEAN CORPUSCULAR VOLUME 71.9 fL (80-94); NEUTROPHILS # (AUTO) 3.3 K/uL (1.8-7.7); NEUTROPHILS % (AUTO) 65.5 % (42.2-75.2); PLATELET COUNT (AUTO) 192 K/uL (140-450); RED BLOOD CELL COUNT(AUTO) 3.06 MIL/uL (4.20-6.10); RED CELL DISTRIBUTION WIDTH 22.1 % (11.6-13.7); WHITE BLOOD COUNT (AUTO) 5.1 K/uL (4.8-10.8)
[2023-09-08 07:52] LABS: ALBUMIN 1.8 g/dL (3.4-5.0); ANION GAP 11.8 (8-16); CALCIUM 7.2 mg/dL (8.5-10.1); CARBON DIOXIDE 22.9 mmol/L (21-32); CREATININE 1.4 mg/dL (0.6-1.3); POTASSIUM 3.7 mmol/L (3.5-5.1); TOTAL BILIRUBIN 0.8 mg/dL (0.0-1.0); TOTAL PROTEIN, SERUM 4.9 g/dL (6.4-8.2)
[2023-09-08 08:00] VITALS: BP 103/62; PULSE 82; PULSE 85; RESP 18; TEMP 97.7; O2SAT 100
[2023-09-08 12:00] VITALS: BP 116/67; PULSE 93; PULSE 99; RESP 18; TEMP 96.9; O2SAT 100
[2023-09-08] MEDS: LACTULOSE 20 GM/30 ML UDC PO SCH (14:34)
[2023-09-08 16:00] VITALS: BP 117/65; PULSE 109; PULSE 95; RESP 18; TEMP 98.1; O2SAT 99
[2023-09-08] MEDS: ONDANSETRON 4 MG/2 ML VIAL IVP PRN (16:00)
[2023-09-08 20:00] VITALS: BP 117/65; PULSE 94; PULSE 95; RESP 18; TEMP 98.1; O2SAT 99
[2023-09-08] MEDS: DOCUSATE SODIUM 100 MG GELCAP PO SCH (23:44)
[2023-09-09] VITALS (7 sets, daily range): BP systolic 99–116; BP diastolic 56–62; PULSE 89–106; RESP 17–18; TEMP 97.5–98.6; O2SAT 95–97
[2023-09-09 07:05] LABS: BASOPHILS # (AUTO) 0.1 K/uL (0.00-0.22); BASOPHILS % (AUTO) 1.2 % (0.0-2.0); EOSINOPHILS # (AUTO) 0.4 K/uL (0-0.4); EOSINOPHILS % (AUTO) 8.3 % (0.0-4.0); HEMATOCRIT 23.3 % (36-52); HEMOGLOBIN 7.7 g/dL (12.0-18.0); LYMPHOCYTES # (AUTO) 0.5 K/uL (2.0-11.5); LYMPHOCYTES % (AUTO) 10.3 % (20.5-51.1); MEAN CORPUSCULAR HEMOGLOBIN 24 pg (27-31); MEAN CORPUSCULAR HGB CONC 33 g/dL (33-37); MEAN CORPUSCULAR VOLUME 71.7 fL (80-94); MONOCYTES # (AUTO) 0.5 K/uL (0.8-1.0); MONOCYTES % (AUTO) 10.2 % (1.7-9.3); NEUTROPHILS # (AUTO) 3.3 K/uL (1.8-7.7); PLATELET COUNT (AUTO) 200 K/uL (140-450); RED BLOOD CELL COUNT(AUTO) 3.25 MIL/uL (4.20-6.10); RED CELL DISTRIBUTION WIDTH 22.3 % (11.6-13.7); WHITE BLOOD COUNT (AUTO) 4.8 K/uL (4.8-10.8)
[2023-09-09 08:03] LABS: ALBUMIN 1.9 g/dL (3.4-5.0); ANION GAP 11.4 (8-16); CALCIUM 7.5 mg/dL (8.5-10.1); CARBON DIOXIDE 24.1 mmol/L (21-32); CREATININE 1.6 mg/dL (0.6-1.3); POTASSIUM 3.5 mmol/L (3.5-5.1); TOTAL BILIRUBIN 0.8 mg/dL (0.0-1.0); TOTAL PROTEIN, SERUM 5.3 g/dL (6.4-8.2)
[2023-09-09] MEDS ORDERED: FURO-572 PO (13:06)
[2023-09-09] MEDS ORDERED: LACT-103 PO (13:06)
== END 2023-09-09 15:10 | disposition home or self-care (01) | DRG 280 ==
LOC: MED 08:05 → MTU 14:08
PROVIDERS: ADMIT Student in an Organized Health Care Education/Training Program; ATTEND Student in an Organized Health Care Education/Training Program
PROC: 30233N1 Transfusion of Nonautologous Red Blood Cells into Peripheral Vein, Percutaneous Approach (ICD-10-PCS; principal; 2023-09-06)
PROC: 0W9G30Z Drainage of Peritoneal Cavity with Drainage Device, Percutaneous Approach (ICD-10-PCS; 2023-09-06)
DX: K70.31 Alcoholic cirrhosis of liver with ascites (principal); N17.0 Acute kidney failure with tubular necrosis; E43 Unspecified severe protein-calorie malnutrition; E87.1 Hypo-osmolality and hyponatremia; D64.9 Anemia, unspecified; Z20.822 Contact with and (suspected) exposure to COVID-19; N18.31 Chronic kidney disease, stage 3a; E87.5 Hyperkalemia; Z79.899 Other long term (current) drug therapy; Z68.23 Body mass index [BMI] 23.0-23.9, adult; E87.70 Fluid overload, unspecified
CPT/HCPCS: 36415; 36430; 49083; 76705; 80048; 80053; 80076; 82140; 83690; 85018; 85025; 85610; 85730; 86886; 86900; 86901; 86920; 87081; 96374; 99285; C9113; J1940; J2270; J2405; P9016; P9046

== ENCOUNTER 2023-09-14 10:22 | Emergency (ER) | payer MEDICAID ==
[~2023-09-14] VITALS: Ht 162.6 cm; Wt 72.7 kg
[~2023-09-14 10:22] MED LIST changes: -FURO20TA8 PO
[2023-09-14 10:32] VITALS: BP 118/74; PULSE 120; RESP 18; TEMP 97.5; O2SAT 98
[2023-09-14] MEDS ORDERED: ONDANSETRON 4 MG TAB ONE (11:44)
[2023-09-14] MEDS: ONDANSETRON 4 MG ODT PO ONE (11:49)
[2023-09-14 14:08] VITALS: BP 120/75; PULSE 90; RESP 18; TEMP 97.8; O2SAT 99
== END 2023-09-14 14:09 | disposition home or self-care (01) ==
LOC: MED 10:22
DX: R18.8 Other ascites (principal); R50.9 Fever, unspecified; Z79.899 Other long term (current) drug therapy; Z88.6 Allergy status to analgesic agent
CPT/HCPCS: 49083; 99285; Q0162; 99282

== ENCOUNTER 2023-09-21 09:19 | Emergency (ER) | payer MEDICAID ==
[~2023-09-21] VITALS: Ht 162.6 cm; Wt 70.3 kg
[2023-09-21 09:59] VITALS: BP 115/82; PULSE 97; RESP 18; TEMP 97.3; O2SAT 99
[2023-09-21 11:00] LABS: BASOPHILS # (AUTO) 0.1 K/uL (0.00-0.22); BASOPHILS % (AUTO) 1.7 % (0.0-2.0); EOSINOPHILS # (AUTO) 0.5 K/uL (0-0.4); EOSINOPHILS % (AUTO) 9.4 % (0.0-4.0); HEMOGLOBIN 8.1 g/dL (12.0-18.0); LYMPHOCYTES # (AUTO) 0.6 K/uL (2.0-11.5); LYMPHOCYTES % (AUTO) 11.9 % (20.5-51.1); MEAN CORPUSCULAR HEMOGLOBIN 24 pg (27-31); MEAN CORPUSCULAR HGB CONC 33 g/dL (33-37); MEAN CORPUSCULAR VOLUME 74.8 fL (80-94); MONOCYTES # (AUTO) 0.5 K/uL (0.8-1.0); NEUTROPHILS # (AUTO) 3.4 K/uL (1.8-7.7); PLATELET COUNT (AUTO) 205 K/uL (140-450); RED BLOOD CELL COUNT(AUTO) 3.34 MIL/uL (4.20-6.10); RED CELL DISTRIBUTION WIDTH 23.6 % (11.6-13.7); WHITE BLOOD COUNT (AUTO) 5.1 K/uL (4.8-10.8)
[2023-09-21 11:16] LABS: INR 1.26 (0.8-1.2); PROTHROMBIN TIME 13.1 secs (10.8-13.4)
[2023-09-21 11:19] LABS: CALCIUM 7.7 mg/dL (8.5-10.1); CARBON DIOXIDE 23.5 mmol/L (21-32); CREATININE 1.4 mg/dL (0.6-1.3); POTASSIUM 5.5 mmol/L (3.5-5.1)
[2023-09-21 11:26] LABS: ALBUMIN 1.7 g/dL (3.4-5.0); BILIRUBIN,DIRECT 0.3 mg/dL (0.0-0.3); TOTAL BILIRUBIN 0.7 mg/dL (0.0-1.0)
[2023-09-21] MEDS: ALBUMIN HUMAN 25% 50 ML IV ONE (12:59)
[2023-09-21] MEDS: ACETAMINOPHEN 325 MG TAB PO ONE (13:23)
[2023-09-21 18:11] VITALS: BP 121/76; PULSE 76; RESP 17; TEMP 97.3; O2SAT 100
== END 2023-09-21 18:15 | disposition home or self-care (01) ==
LOC: MED 09:19
DX: R18.8 Other ascites (principal); Z79.899 Other long term (current) drug therapy
CPT/HCPCS: 36415; 49083; 80048; 80076; 83690; 85025; 85610; 96365; 99285; P9046

== ENCOUNTER 2023-09-25 07:40 | Emergency (ER) | payer MEDICAID ==
[~2023-09-25] VITALS: Ht 162.6 cm; Wt 70.3 kg
[2023-09-25 07:57] VITALS: BP 136/91; PULSE 96; RESP 18; TEMP 98.3; O2SAT 100
[2023-09-25 08:00] VITALS: TEMP 98.3
[2023-09-25] MEDS: ALBUMIN HUMAN 25% 100 ML IV ONE (09:14)
[2023-09-25] MEDS: ONDANSETRON 4 MG ODT PO ONE (09:40)
[2023-09-25] MEDS: MORPHINE SULFATE 4 MG/ML SYR IM ONE (09:45)
[2023-09-25] MEDS ORDERED: FURO-572 PO (14:17)
[2023-09-25] MEDS: ACETAMINOPHEN 325 MG TAB PO ONE (14:26)
[2023-09-25 14:30] VITALS: BP 110/67; PULSE 78; RESP 18; O2SAT 97
== END 2023-09-25 14:30 | disposition home or self-care (01) ==
LOC: MED 07:40
DX: K74.60 Unspecified cirrhosis of liver (principal); R18.8 Other ascites; Z79.899 Other long term (current) drug therapy; Z88.6 Allergy status to analgesic agent
CPT/HCPCS: 49083; 96365; 96366; 96372; 99285; J2270; P9046; Q0162

== ENCOUNTER 2023-10-02 09:25 | Emergency (ER) | payer MEDICAID ==
[~2023-10-02] VITALS: Ht 162.6 cm; Wt 70.8 kg
[~2023-10-02 09:25] MED LIST changes: -LACT-103 PO; +LACT-191 PO
[2023-10-02 09:32] VITALS: BP 128/75; PULSE 101; RESP 19; TEMP 97.8; O2SAT 100
[2023-10-02] MEDS: MORPHINE SULFATE 2 MG/ML SYR IVP ONE (10:57)
[2023-10-02] MEDS: ALBUMIN HUMAN 25% 50 ML IV ONE (11:11)
[2023-10-02 16:22] VITALS: BP 110/68; PULSE 84; RESP 10; TEMP 97.2; O2SAT 100
== END 2023-10-02 16:22 | disposition home or self-care (01) ==
LOC: MED 09:25
DX: R18.8 Other ascites (principal); Z79.899 Other long term (current) drug therapy
CPT/HCPCS: 49083; 96365; 96375; 99285; J2270; P9046

== ENCOUNTER 2023-10-09 09:05 | Emergency (ER) | payer MEDICAID ==
[~2023-10-09] VITALS: Ht 162.6 cm; Wt 66.3 kg
[2023-10-09 09:26] VITALS: BP 127/78; PULSE 93; RESP 19; TEMP 97.8; O2SAT 100
[2023-10-09 11:04] LABS: BASOPHILS # (AUTO) 0.1 K/uL (0.00-0.22); BASOPHILS % (AUTO) 0.7 % (0.0-2.0); EOSINOPHILS # (AUTO) 0.5 K/uL (0-0.4); EOSINOPHILS % (AUTO) 7.9 % (0.0-4.0); HEMATOCRIT 27.1 % (36-52); HEMOGLOBIN 8.9 g/dL (12.0-18.0); LYMPHOCYTES # (AUTO) 0.8 K/uL (2.0-11.5); LYMPHOCYTES % (AUTO) 11.4 % (20.5-51.1); MEAN CORPUSCULAR HEMOGLOBIN 25 pg (27-31); MEAN CORPUSCULAR HGB CONC 33 g/dL (33-37); MEAN CORPUSCULAR VOLUME 75.1 fL (80-94); MONOCYTES # (AUTO) 0.8 K/uL (0.8-1.0); MONOCYTES % (AUTO) 11.2 % (1.7-9.3); NEUTROPHILS # (AUTO) 4.6 K/uL (1.8-7.7); NEUTROPHILS % (AUTO) 68.8 % (42.2-75.2); PLATELET COUNT (AUTO) 181 K/uL (140-450); RED BLOOD CELL COUNT(AUTO) 3.61 MIL/uL (4.20-6.10); RED CELL DISTRIBUTION WIDTH 23.5 % (11.6-13.7); WHITE BLOOD COUNT (AUTO) 6.7 K/uL (4.8-10.8)
[2023-10-09 11:16] LABS: ANION GAP 12.1 (8-16); CALCIUM 7.6 mg/dL (8.5-10.1); CARBON DIOXIDE 22.1 mmol/L (21-32); CREATININE 1.4 mg/dL (0.6-1.3); POTASSIUM 5.2 mmol/L (3.5-5.1)
[2023-10-09 11:22] LABS: ALBUMIN 1.8 g/dL (3.4-5.0); BILIRUBIN,DIRECT 0.3 mg/dL (0.0-0.3); TOTAL BILIRUBIN 0.6 mg/dL (0.0-1.0); TOTAL PROTEIN, SERUM 6.3 g/dL (6.4-8.2)
[2023-10-09 11:33] LABS: APPEARANCE,URINE CLEAR (CLEAR); BILIRUBIN,URINE NEGATIVE (NEGATIVE); BLOOD, URINE TRACE-I (NEGATIVE); COLOR,URINE YELLOW (YELLOW); LEUKOCYTE ESTERASE ,URINE NEGATIVE (NEGATIVE); NITRITE, URINE NEGATIVE (NEGATIVE); PROTEIN,URINE NEGATIVE (NEGATIVE); UGLUCOSE NEGATIVE (NEGATIVE); UROBILINOGEN,URINE 0.2 EU/dL (0.2 - 1)
[2023-10-09 11:58] LABS: BACTERIA,URINE 0-2 /HPF (None Seen); SQUAMOUS EPITHELIAL CELL,UR 0-3 (FEW) /LPF (0-3 (FEW)); WBC,URINE 0-5 /HPF (0-5)
[2023-10-09] MEDS: MORPHINE SULFATE 2 MG/ML SYR IVP ONE (12:52)
[2023-10-09] MEDS ORDERED: ALBUMIN HUMAN 5 % 250 ML IV ONE (13:15)
[2023-10-09] MEDS: ALBUMIN HUMAN 25% 100 ML IV ONE (13:20)
[2023-10-09] MEDS ORDERED: ONDA-188 SL (15:47)
[2023-10-09 15:55] VITALS: BP 113/71; PULSE 69; RESP 14; TEMP 97.8; O2SAT 100
== END 2023-10-09 15:56 | disposition home or self-care (01) ==
LOC: MED 09:05
DX: K74.60 Unspecified cirrhosis of liver (principal); R18.8 Other ascites; Z79.899 Other long term (current) drug therapy; Z88.6 Allergy status to analgesic agent
CPT/HCPCS: 36415; 49083; 80048; 80076; 81001; 83690; 85025; 96365; 96366; 96375; 99285; J2270; J7030; P9046

== ENCOUNTER 2023-10-16 12:14 | Emergency (ER) | payer MEDICAID ==
[~2023-10-16] VITALS: Ht 162.6 cm; Wt 70.3 kg
[~2023-10-16 12:14] MED LIST changes: +ONDA-188 SL
[2023-10-16 12:41] VITALS: BP 116/83; PULSE 84; RESP 18; TEMP 97.2; O2SAT 0
[2023-10-16] MEDS: ALBUMIN HUMAN 25% 100 ML IV ONE (15:41)
[2023-10-16] MEDS: MORPHINE SULFATE 2 MG/ML SYR IVP ONE (15:43)
[2023-10-16 19:27] VITALS: O2SAT 98
[2023-10-16 21:04] VITALS: BP 132/75; PULSE 81; RESP 17; TEMP 98.2; O2SAT 98
== END 2023-10-16 21:04 | disposition home or self-care (01) ==
LOC: MED 12:14
DX: R18.8 Other ascites (principal); N28.9 Disorder of kidney and ureter, unspecified; Z79.899 Other long term (current) drug therapy; Z79.1 Long term (current) use of non-steroidal anti-inflammatories (NSAID)
CPT/HCPCS: 49083; 96365; 96375; 99285; J2270; P9046

== ENCOUNTER 2023-10-24 08:42 | Emergency (ER) | payer MEDICAID ==
[~2023-10-24] VITALS: Ht 162.6 cm; Wt 70.3 kg
[2023-10-24 08:55] VITALS: BP 119/75; PULSE 95; RESP 18; TEMP 98.4; O2SAT 100
[2023-10-24] MEDS: MORPHINE SULFATE 4 MG/ML SYR IM ONE (09:36)
[2023-10-24 10:17] VITALS: TEMP 98
[2023-10-24 11:14] VITALS: BP 121/73; PULSE 86; RESP 19; O2SAT 100
[2023-11-01] MEDS ORDERED: SODI10PO PO (12:06)
== END 2023-10-24 11:14 | disposition home or self-care (01) ==
LOC: MED 08:42
DX: R18.8 Other ascites (principal); R14.0 Abdominal distension (gaseous); Z79.899 Other long term (current) drug therapy; Z79.1 Long term (current) use of non-steroidal anti-inflammatories (NSAID)
CPT/HCPCS: 49083; 96372; 99285; J2270

== ENCOUNTER 2023-11-06 09:07 | Emergency (ER) | payer MEDICAID ==
[~2023-11-06] VITALS: Ht 162.6 cm; Wt 70.3 kg
[~2023-11-06 09:07] MED LIST changes: -ONDA-188 SL
[2023-11-06 09:14] VITALS: BP 134/82; PULSE 113; RESP 18; TEMP 97.1; O2SAT 100
[2023-11-06 09:53] LABS: BASOPHILS # (AUTO) 0.1 K/uL (0.00-0.22); BASOPHILS % (AUTO) 1.1 % (0.0-2.0); EOSINOPHILS # (AUTO) 0.5 K/uL (0-0.4); EOSINOPHILS % (AUTO) 7.4 % (0.0-4.0); HEMATOCRIT 26.4 % (36-52); HEMOGLOBIN 8.5 g/dL (12.0-18.0); LYMPHOCYTES # (AUTO) 0.7 K/uL (2.0-11.5); LYMPHOCYTES % (AUTO) 11.3 % (20.5-51.1); MEAN CORPUSCULAR HEMOGLOBIN 25 pg (27-31); MEAN CORPUSCULAR HGB CONC 32 g/dL (33-37); MEAN CORPUSCULAR VOLUME 78.4 fL (80-94); MONOCYTES # (AUTO) 0.6 K/uL (0.8-1.0); MONOCYTES % (AUTO) 8.9 % (1.7-9.3); NEUTROPHILS # (AUTO) 4.5 K/uL (1.8-7.7); NEUTROPHILS % (AUTO) 71.3 % (42.2-75.2); PLATELET COUNT (AUTO) 224 K/uL (140-450); RED BLOOD CELL COUNT(AUTO) 3.37 MIL/uL (4.20-6.10); RED CELL DISTRIBUTION WIDTH 20.6 % (11.6-13.7); WHITE BLOOD COUNT (AUTO) 6.3 K/uL (4.8-10.8)
[2023-11-06 10:06] LABS: ANION GAP 9.8 (8-16); CALCIUM 8.2 mg/dL (8.5-10.1); CREATININE 1.3 mg/dL (0.6-1.3); POTASSIUM 4.8 mmol/L (3.5-5.1)
[2023-11-06 10:32] LABS: ALBUMIN 1.8 g/dL (3.4-5.0); BILIRUBIN,DIRECT 0.3 mg/dL (0.0-0.3); TOTAL BILIRUBIN 0.6 mg/dL (0.0-1.0); TOTAL PROTEIN, SERUM 6.5 g/dL (6.4-8.2)
[2023-11-06] MEDS: MORPHINE SULFATE 4 MG/ML SYR IVP ONE (12:00)
[2023-11-06 16:05] VITALS: BP 144/95; PULSE 104; RESP 17; TEMP 97.1; O2SAT 100
== END 2023-11-06 17:13 | disposition home or self-care (01) ==
LOC: MED 09:07
DX: R18.8 Other ascites (principal); K74.60 Unspecified cirrhosis of liver; I10 Essential (primary) hypertension; N28.9 Disorder of kidney and ureter, unspecified; Z79.1 Long term (current) use of non-steroidal anti-inflammatories (NSAID); Z79.899 Other long term (current) drug therapy
CPT/HCPCS: 36415; 49083; 80048; 80076; 85025; 96374; 99285; J2270

== ENCOUNTER 2023-11-13 10:27 | Emergency (ER) | payer MEDICAID ==
[~2023-11-13] VITALS: Ht 170.2 cm; Wt 81.6 kg
[2023-11-13 10:42] VITALS: BP 126/78; PULSE 90; RESP 14; TEMP 98.1; O2SAT 99
[2023-11-13 14:05] VITALS: BP 123/62; PULSE 84; RESP 14; TEMP 98; O2SAT 100
== END 2023-11-13 14:05 | disposition home or self-care (01) ==
LOC: MED 10:27
DX: K74.60 Unspecified cirrhosis of liver (principal); R18.8 Other ascites; Z86.79 Personal history of other diseases of the circulatory system; Z79.899 Other long term (current) drug therapy; Z79.1 Long term (current) use of non-steroidal anti-inflammatories (NSAID); Z88.6 Allergy status to analgesic agent
CPT/HCPCS: 49083; 99285

== ENCOUNTER 2023-11-20 09:32 | Emergency (ER) | payer MEDICAID ==
[~2023-11-20] VITALS: Ht 162.6 cm; Wt 70.3 kg
[2023-11-20 09:37] VITALS: BP 145/84; PULSE 103; RESP 18; TEMP 97.8; O2SAT 100
[2023-11-20] MEDS: ONDANSETRON 4 MG/2 ML VIAL IVP ONE (11:39)
[2023-11-20] MEDS: MORPHINE SULFATE 2 MG/ML SYR IVP ONE (11:40)
== END 2023-11-20 13:38 | disposition home or self-care (01) ==
LOC: MED 09:32
DX: R18.8 Other ascites (principal); K74.60 Unspecified cirrhosis of liver; Z86.79 Personal history of other diseases of the circulatory system; Z79.1 Long term (current) use of non-steroidal anti-inflammatories (NSAID); Z79.899 Other long term (current) drug therapy; Z88.6 Allergy status to analgesic agent
CPT/HCPCS: 49083; 96374; 96375; 99285; J2270; J2405

== ENCOUNTER 2023-11-24 09:08 | Emergency (ER) | payer MEDICAID ==
[~2023-11-24] VITALS: Ht 162.6 cm; Wt 70.3 kg
[2023-11-24 09:28] VITALS: BP 120/77; PULSE 101; RESP 18; TEMP 98.3; O2SAT 100
[2023-11-24] MEDS: MORPHINE SULFATE 2 MG/ML SYR IVP PRN (10:10)
[2023-11-24] MEDS: ALBUMIN HUMAN 25% 50 ML IV ONE (10:19)
[2023-11-24 13:30] VITALS: BP 113/65; PULSE 85; RESP 16; TEMP 98.1; O2SAT 100
== END 2023-11-24 13:30 | disposition home or self-care (01) ==
LOC: MED 09:08
DX: R18.8 Other ascites (principal); K74.60 Unspecified cirrhosis of liver; N28.9 Disorder of kidney and ureter, unspecified; I25.10 Atherosclerotic heart disease of native coronary artery without angina pectoris; Z79.899 Other long term (current) drug therapy; Z79.1 Long term (current) use of non-steroidal anti-inflammatories (NSAID)
CPT/HCPCS: 49083; 96365; 96375; 99285; J2270; P9046

== ENCOUNTER 2023-11-30 09:34 | Emergency (ER) | payer MEDICAID ==
[~2023-11-30] VITALS: Ht 162.6 cm; Wt 70.8 kg
[2023-11-30 09:53] VITALS: BP 154/73; PULSE 90; RESP 16; TEMP 97.5; O2SAT 100
[2023-11-30] MEDS: MORPHINE SULFATE 4 MG/ML SYR IM ONE (10:41)
[2023-11-30] MEDS: ALBUMIN HUMAN 25% 100 ML IV ONE (10:48)
[2023-11-30 13:20] VITALS: BP 112/68; PULSE 82; RESP 18; TEMP 97.7; O2SAT 99
== END 2023-11-30 13:20 | disposition home or self-care (01) ==
LOC: MED 09:34
DX: R18.8 Other ascites (principal); K74.60 Unspecified cirrhosis of liver; Z87.448 Personal history of other diseases of urinary system; Z79.899 Other long term (current) drug therapy; Z88.6 Allergy status to analgesic agent
CPT/HCPCS: 49083; 96365; 96366; 96372; 99285; J2270; P9046

== ENCOUNTER 2023-12-05 08:30 | Emergency (ER) | payer MEDICAID ==
[~2023-12-05] VITALS: Ht 162.6 cm; Wt 71.7 kg
[2023-12-05 08:48] VITALS: BP 129/90; PULSE 94; RESP 17; TEMP 97.9; O2SAT 100
[2023-12-05] MEDS: ALBUMIN HUMAN 25% 100 ML IV ONE (13:25)
[2023-12-05] MEDS: MORPHINE SULFATE 2 MG/ML SYR IVP ONE (13:27)
[2023-12-05 15:45] VITALS: BP 117/70; PULSE 80; RESP 15; TEMP 98; O2SAT 99
== END 2023-12-05 15:45 | disposition home or self-care (01) ==
LOC: MED 08:30
DX: R18.8 Other ascites (principal); Z86.79 Personal history of other diseases of the circulatory system; Z79.1 Long term (current) use of non-steroidal anti-inflammatories (NSAID)
CPT/HCPCS: 49083; 96365; 96366; 96375; 99285; J2270; P9046

== ENCOUNTER 2023-12-15 08:54 | Emergency (ER) | payer MEDICAID ==
[~2023-12-15] VITALS: Ht 162.6 cm; Wt 69.9 kg
[2023-12-15 09:01] VITALS: BP 131/87; PULSE 96; RESP 16; TEMP 97.9; O2SAT 100
[2023-12-15] MEDS: MORPHINE SULFATE 4 MG/ML SYR IVP ONE (09:44)
[2023-12-15] MEDS: ALBUMIN HUMAN 25% 100 ML IV ONE (09:45)
[2023-12-15 11:03] VITALS: O2SAT 99
[2023-12-15 12:28] VITALS: BP 126/79; PULSE 84; RESP 15; TEMP 97.9; O2SAT 99
== END 2023-12-15 12:31 | disposition home or self-care (01) ==
LOC: MED 08:54
DX: R18.8 Other ascites (principal); Z87.448 Personal history of other diseases of urinary system; Z79.899 Other long term (current) drug therapy; Z88.6 Allergy status to analgesic agent
CPT/HCPCS: 49083; 96365; 96366; 96375; 99285; J2270; P9046

== ENCOUNTER 2023-12-21 06:25 | Emergency (ER) | payer MEDICAID ==
[~2023-12-21] VITALS: Ht 162.6 cm; Wt 72.6 kg
[2023-12-21 06:29] VITALS: BP 131/68; PULSE 95; RESP 16; TEMP 97.7; O2SAT 100
[2023-12-21] MEDS: ONDANSETRON 4 MG/2 ML VIAL IVP ONE (06:48)
[2023-12-21] MEDS: MORPHINE SULFATE 4 MG/ML SYR IVP ONE (06:49)
[2023-12-21] MEDS: ALBUMIN HUMAN 25% 100 ML IV ONE (06:58)
[2023-12-21 10:30] VITALS: BP 111/70; PULSE 89; RESP 16; TEMP 98.1; O2SAT 97
== END 2023-12-21 10:30 | disposition home or self-care (01) ==
LOC: MED 06:25
DX: R18.8 Other ascites (principal); K74.60 Unspecified cirrhosis of liver; Z87.448 Personal history of other diseases of urinary system; Z79.899 Other long term (current) drug therapy; Z88.6 Allergy status to analgesic agent
CPT/HCPCS: 49083; 96365; 96366; 96375; 99285; J2270; J2405; P9046

== ENCOUNTER 2023-12-28 09:09 | Emergency (ER) | payer MEDICAID ==
[~2023-12-28] VITALS: Ht 162.6 cm; Wt 72.6 kg
[2023-12-28 09:13] VITALS: BP 116/70; PULSE 95; RESP 18; TEMP 97.9; O2SAT 97
[2023-12-28] MEDS: ALBUMIN HUMAN 25% 100 ML IV ONE (09:52)
[2023-12-28 13:47] VITALS: BP 115/64; PULSE 82; RESP 11; TEMP 98; O2SAT 100
== END 2023-12-28 13:47 | disposition home or self-care (01) ==
LOC: MED 09:09
DX: R18.8 Other ascites (principal); Z87.448 Personal history of other diseases of urinary system; Z79.899 Other long term (current) drug therapy; Z88.6 Allergy status to analgesic agent
CPT/HCPCS: 49083; 96365; 96366; 99285; P9046

== ENCOUNTER 2024-01-04 09:41 | Emergency (ER) | payer MEDICAID ==
[~2024-01-04] VITALS: Ht 162.6 cm; Wt 69.4 kg
[2024-01-04 09:47] VITALS: BP 122/77; PULSE 91; RESP 18; TEMP 97.2; O2SAT 98
[2024-01-04] MEDS: MORPHINE SULFATE 4 MG/ML SYR IM ONE (10:25)
[2024-01-04] MEDS: ALBUMIN HUMAN 25% 100 ML IV ONE (10:25)
[2024-01-04] MEDS: MORPHINE SULFATE 4 MG/ML SYR IVP ONE (11:22)
[2024-01-04 12:12] VITALS: O2SAT 98
[2024-01-04 13:12] VITALS: BP 102/65; PULSE 86; RESP 14; TEMP 97.2; O2SAT 100
== END 2024-01-04 14:14 | disposition home or self-care (01) ==
LOC: MED 09:41
DX: R18.8 Other ascites (principal); Z87.448 Personal history of other diseases of urinary system; Z79.899 Other long term (current) drug therapy; Z88.6 Allergy status to analgesic agent
CPT/HCPCS: 49083; 96365; 96366; 96375; 99285; J2270; P9046

== ENCOUNTER 2024-01-11 09:18 | Emergency (ER) | payer MEDICAID ==
[~2024-01-11] VITALS: Ht 149.9 cm; Wt 72.6 kg
[2024-01-11 09:23] VITALS: BP 121/75; PULSE 104; RESP 18; TEMP 97.5; O2SAT 98
[2024-01-11] MEDS: ONDANSETRON 4 MG/2 ML VIAL IVP ONE (09:49)
[2024-01-11] MEDS: ALBUMIN HUMAN 25% 100 ML IV ONE (09:50)
[2024-01-11] MEDS: MORPHINE SULFATE 4 MG/ML SYR IVP ONE (09:50)
[2024-01-11 12:20] VITALS: BP 114/65; PULSE 88; RESP 18; TEMP 97.5; O2SAT 98
== END 2024-01-11 12:33 | disposition home or self-care (01) ==
LOC: MED 09:18
DX: R18.8 Other ascites (principal); Z86.79 Personal history of other diseases of the circulatory system; Z79.1 Long term (current) use of non-steroidal anti-inflammatories (NSAID); Z79.899 Other long term (current) drug therapy
CPT/HCPCS: 49083; 96365; 96366; 96375; 99285; J2270; J2405; P9046

== ENCOUNTER 2024-01-18 10:06 | Emergency (ER) | payer MEDICAID ==
[~2024-01-18] VITALS: Ht 162.6 cm; Wt 72.6 kg
[2024-01-18 10:40] VITALS: BP 119/73; PULSE 97; RESP 19; TEMP 96.6; O2SAT 100
[2024-01-18 11:11] VITALS: O2SAT 100
[2024-01-18] MEDS: MORPHINE SULFATE 4 MG/ML SYR IVP ONE (12:03)
[2024-01-18] MEDS: ALBUMIN HUMAN 25% 100 ML IV ONE (12:07)
[2024-01-18 12:39] VITALS: TEMP 98.2
[2024-01-18 13:18] VITALS: O2SAT 100
[2024-01-18 13:56] VITALS: BP 110/66; PULSE 83; RESP 14; O2SAT 99
== END 2024-01-18 14:33 | disposition home or self-care (01) ==
LOC: MED 10:06
DX: R18.8 Other ascites (principal); Z86.79 Personal history of other diseases of the circulatory system; Z79.1 Long term (current) use of non-steroidal anti-inflammatories (NSAID); Z79.899 Other long term (current) drug therapy; Z88.6 Allergy status to analgesic agent
CPT/HCPCS: 49083; 96365; 96375; 99285; J2270; P9046

== ENCOUNTER 2024-01-25 08:38 | Emergency (ER) | payer MEDICAID ==
[~2024-01-25] VITALS: Ht 160 cm; Wt 71.8 kg
[2024-01-25 08:52] VITALS: BP 115/66; PULSE 100; RESP 16; TEMP 98.3; O2SAT 98
[2024-01-25] MEDS: MORPHINE SULFATE 4 MG/ML SYR IM ONE (09:25)
[2024-01-25] MEDS ORDERED: SODI10PO PO (12:40)
[2024-01-25 13:54] VITALS: BP 118/62; PULSE 82; RESP 16; TEMP 98.3; O2SAT 100
== END 2024-01-25 13:54 | disposition home or self-care (01) ==
LOC: MED 08:38
DX: R18.8 Other ascites (principal); Z87.448 Personal history of other diseases of urinary system; Z79.899 Other long term (current) drug therapy; Z88.6 Allergy status to analgesic agent
CPT/HCPCS: 49083; 96372; 99285; J2270

== ENCOUNTER 2024-02-01 09:16 | Emergency (ER) | payer MEDICAID ==
[~2024-02-01] VITALS: Ht 162.6 cm; Wt 69.9 kg
[2024-02-01 09:27] VITALS: BP 111/74; PULSE 87; RESP 17; TEMP 97.8; O2SAT 100
[2024-02-01 09:45] VITALS: O2SAT 100
[2024-02-01] MEDS: ONDANSETRON 4 MG/2 ML VIAL IVP ONE (10:19)
[2024-02-01] MEDS: MORPHINE SULFATE 2 MG/ML SYR IVP ONE (10:44)
[2024-02-01] MEDS: ALBUMIN HUMAN 25% 100 ML IV ONE (10:45)
[2024-02-01 11:46] VITALS: O2SAT 99
[2024-02-01 15:09] VITALS: BP 110/61; PULSE 78; RESP 15; TEMP 98
[2024-02-01 15:10] VITALS: O2SAT 99
== END 2024-02-01 15:39 | disposition home or self-care (01) ==
LOC: MED 09:16
DX: R18.8 Other ascites (principal); Z86.79 Personal history of other diseases of the circulatory system; Z79.899 Other long term (current) drug therapy
CPT/HCPCS: 49083; 96365; 96375; 99285; J2270; J2405; P9046; J7030

== ENCOUNTER 2024-02-08 08:52 | Emergency (ER) | payer MEDICAID ==
[~2024-02-08] VITALS: Ht 162.6 cm; Wt 71.4 kg
[2024-02-08 09:00] VITALS: BP 136/87; PULSE 92; RESP 18; TEMP 98.1; O2SAT 100
--- NOTE | 2024-02-08 09:05 | NUR ---
to bed 5.
[2024-02-08 09:20] VITALS: O2SAT 99
--- NOTE | 2024-02-08 09:21 | NUR ---
Patient being evaluated by physician at bedside.
[2024-02-08] MEDS: ALBUMIN HUMAN 25% 100 ML IV ONE (09:31)
[2024-02-08] MEDS: MORPHINE SULFATE 4 MG/ML SYR IVP ONE (09:32)
[2024-02-08] MEDS: ONDANSETRON 4 MG/2 ML VIAL IVP ONE (09:32)
--- NOTE | 2024-02-08 09:42 | NUR ---
53 y/o male c/o abdominal distention requesting paracentesis. Patient comes in frequently for paracentesis. Patient is alert, reports pain to abdomen. Patient's abdomen is distended. Patient reports no other complaints at this time. Call light is within reach. Medical History: Liver Cirrhosis, Ascites ALLERGY: IBUPROFEN
--- NOTE | 2024-02-08 11:54 | NUR ---
IV removed, catheter intact and site benign. Applied folded 4x4 gauze and tape to stop bleeding.
[2024-02-08 12:41] VITALS: BP 112/68; PULSE 86; RESP 14; O2SAT 100
--- NOTE | 2024-02-08 12:41 | NUR ---
Patient discharged with v/s stable. Written and verbal after care instructions given. Patient verbalized understanding. Ambulatory with steady gait. All questions addressed prior to discharge. Advised to follow up with PMD.
--- NOTE | 2024-02-08 12:50 | NUR ---
Chart checked and completed. The patient's care was reviewed and supervised by ELIJAH BROOKS RN.
== END 2024-02-08 12:41 | disposition home or self-care (01) ==
LOC: MED 08:52
DX: R18.8 Other ascites (principal); K74.60 Unspecified cirrhosis of liver; Z87.448 Personal history of other diseases of urinary system; Z79.899 Other long term (current) drug therapy; Z88.6 Allergy status to analgesic agent
CPT/HCPCS: 49083; 96365; 96375; 99285; J2270; J2405; P9046

== ENCOUNTER 2024-02-15 09:24 | Emergency (ER) | payer MEDICAID ==
[~2024-02-15] VITALS: Ht 162.6 cm; Wt 71.2 kg
[2024-02-15 09:28] VITALS: BP 109/66; PULSE 102; RESP 20; TEMP 98.9; O2SAT 99
[2024-02-15 09:40] VITALS: O2SAT 99
[2024-02-15] MEDS: ALBUMIN HUMAN 25% 100 ML IV ONE (10:37)
[2024-02-15] MEDS ORDERED: ONDANSETRON 4 MG/2 ML VIAL ONE (10:40)
[2024-02-15] MEDS ORDERED: ONDANSETRON 4 MG/2 ML VIAL IVP STA (10:46)
[2024-02-15] MEDS: ONDANSETRON 4 MG/2 ML VIAL IVP ONE (11:01)
[2024-02-15] MEDS: MORPHINE SULFATE 2 MG/ML SYR IVP ONE (11:02)
[2024-02-15 11:48] VITALS: TEMP 98.9
[2024-02-15 12:39] VITALS: BP 113/66; PULSE 87; RESP 20; O2SAT 99
== END 2024-02-15 12:40 | disposition home or self-care (01) ==
LOC: MED 09:24
DX: R18.8 Other ascites (principal); Z87.448 Personal history of other diseases of urinary system; Z79.899 Other long term (current) drug therapy; Z88.6 Allergy status to analgesic agent
CPT/HCPCS: 49083; 96365; 96366; 96375; 99285; J2270; J2405; P9046

== ENCOUNTER 2024-02-22 08:38 | Emergency (ER) | payer MEDICAID ==
[~2024-02-22] VITALS: Ht 152.4 cm; Wt 73.3 kg
[2024-02-22 08:45] VITALS: BP 135/100; PULSE 92; RESP 15; TEMP 97.8; O2SAT 100
[2024-02-22] MEDS: ONDANSETRON 4 MG ODT PO ONE (09:08)
[2024-02-22] MEDS: MORPHINE SULFATE 4 MG/ML SYR IM ONE (09:09)
[2024-02-22 13:00] VITALS: BP 103/60; PULSE 83; RESP 20; O2SAT 100
== END 2024-02-22 13:43 | disposition home or self-care (01) ==
LOC: MED 08:38
DX: R18.8 Other ascites (principal); Z87.448 Personal history of other diseases of urinary system; Z79.899 Other long term (current) drug therapy; Z88.6 Allergy status to analgesic agent
CPT/HCPCS: 49083; 96372; 99285; J2270; Q0162

== ENCOUNTER 2024-02-29 08:48 | Emergency (ER) | payer MEDICAID ==
[~2024-02-29] VITALS: Ht 152.4 cm; Wt 72.1 kg
[2024-02-29 08:53] VITALS: BP 120/74; PULSE 91; RESP 16; TEMP 97.6; O2SAT 100
[2024-02-29] MEDS: ALBUMIN HUMAN 25% 50 ML IV ONE (09:19)
[2024-02-29] MEDS: ONDANSETRON 4 MG/2 ML VIAL IVP ONE (09:20)
[2024-02-29] MEDS: MORPHINE SULFATE 2 MG/ML SYR IVP ONE (09:26)
[2024-02-29 11:09] VITALS: BP 127/76; PULSE 84; RESP 20; TEMP 97.6; O2SAT 100
== END 2024-02-29 11:09 | disposition home or self-care (01) ==
LOC: MED 08:48
DX: R18.8 Other ascites (principal); Z79.899 Other long term (current) drug therapy
CPT/HCPCS: 49083; 96365; 96375; 99285; J2270; J2405; P9046

== ENCOUNTER 2024-03-07 09:11 | Emergency (ER) | payer MEDICAID ==
[~2024-03-07] VITALS: Ht 162.6 cm; Wt 72.6 kg
[2024-03-07 09:16] VITALS: BP 110/74; PULSE 99; RESP 16; TEMP 98.3; O2SAT 99
[2024-03-07] MEDS: ONDANSETRON 4 MG/2 ML VIAL IVP ONE (09:36)
[2024-03-07] MEDS: ALBUMIN HUMAN 25% 100 ML IV ONE (09:37)
[2024-03-07] MEDS: MORPHINE SULFATE 2 MG/ML SYR IVP ONE (09:41)
[2024-03-07 09:43] VITALS: BP 118/62; PULSE 93; RESP 20; O2SAT 99
[2024-03-07] MEDS: ACETAMINOPHEN 325 MG TAB PO ONE (11:44)
== END 2024-03-07 12:01 | disposition home or self-care (01) ==
LOC: MED 09:11
DX: R18.8 Other ascites (principal); Z87.448 Personal history of other diseases of urinary system; Z79.899 Other long term (current) drug therapy; Z88.6 Allergy status to analgesic agent
CPT/HCPCS: 49083; 96365; 96375; 99285; J2270; J2405; P9046

== ENCOUNTER 2024-03-14 08:56 | Emergency (ER) | payer MEDICAID ==
[~2024-03-14] VITALS: Ht 162.6 cm; Wt 73.0 kg
[2024-03-14 09:03] VITALS: BP 134/77; PULSE 85; RESP 16; TEMP 97.6; O2SAT 99
[2024-03-14] MEDS ORDERED: FURO-572 PO (09:25)
[2024-03-14] MEDS: MORPHINE SULFATE 4 MG/ML SYR IM ONE (09:35)
[2024-03-14 12:07] VITALS: BP 118/70; PULSE 89; RESP 13; TEMP 98; O2SAT 99
== END 2024-03-14 12:07 | disposition home or self-care (01) ==
LOC: MED 08:56
DX: R18.8 Other ascites (principal); R03.0 Elevated blood-pressure reading, without diagnosis of hypertension; Z87.448 Personal history of other diseases of urinary system; Z79.899 Other long term (current) drug therapy; Z88.6 Allergy status to analgesic agent
CPT/HCPCS: 49083; 96374; 99285; J2270

== ENCOUNTER 2024-03-21 08:56 | Emergency (ER) | payer MEDICAID ==
[~2024-03-21] VITALS: Ht 162.6 cm; Wt 74.2 kg
[2024-03-21 09:14] VITALS: BP 135/82; PULSE 86; RESP 16; TEMP 98; O2SAT 99
[2024-03-21] MEDS: MORPHINE SULFATE 2 MG/ML SYR IVP ONE (09:56)
[2024-03-21] MEDS: ONDANSETRON 4 MG/2 ML VIAL IVP ONE (09:56)
[2024-03-21] MEDS: ALBUMIN HUMAN 25% 100 ML IV ONE (09:57)
[2024-03-21 12:35] VITALS: O2SAT 100
[2024-03-21 12:37] VITALS: BP 120/73; PULSE 83; RESP 13; TEMP 98; O2SAT 100
== END 2024-03-21 13:40 | disposition home or self-care (01) ==
LOC: MED 08:56
DX: R18.8 Other ascites (principal); Z87.448 Personal history of other diseases of urinary system; Z79.899 Other long term (current) drug therapy; Z88.6 Allergy status to analgesic agent
CPT/HCPCS: 49083; 96365; 96366; 96375; 99285; J2270; J2405; J7030; P9046

== ENCOUNTER 2024-03-28 08:33 | Emergency (ER) | payer MEDICAID ==
[~2024-03-28] VITALS: Ht 152.4 cm; Wt 72.6 kg
[2024-03-28 08:40] VITALS: BP 131/86; PULSE 80; RESP 22; TEMP 97.6; O2SAT 100
[2024-03-28] MEDS: ONDANSETRON 4 MG/2 ML VIAL IVP ONE (09:36)
[2024-03-28] MEDS: MORPHINE SULFATE 4 MG/ML SYR IVP ONE (09:38)
[2024-03-28] MEDS: ALBUMIN HUMAN 25% 50 ML IV ONE (09:41)
[2024-03-28 11:57] VITALS: BP 122/77; PULSE 83; RESP 10; TEMP 97.8; O2SAT 100
== END 2024-03-28 11:57 | disposition home or self-care (01) ==
LOC: MED 08:33
DX: R18.8 Other ascites (principal); Z87.448 Personal history of other diseases of urinary system; Z79.899 Other long term (current) drug therapy; Z88.6 Allergy status to analgesic agent
CPT/HCPCS: 49083; 96365; 96375; 99285; J2270; J2405; P9046

== ENCOUNTER 2024-04-04 09:35 | Emergency (ER) | payer MEDICAID ==
[~2024-04-04] VITALS: Ht 154.9 cm; Wt 71.7 kg
[2024-04-04 10:02] VITALS: BP 133/81; PULSE 93; RESP 20; TEMP 98.8; O2SAT 99
[2024-04-04 10:34] VITALS: O2SAT 99
[2024-04-04 15:41] VITALS: BP 119/82; PULSE 90; RESP 16; TEMP 98.7; O2SAT 100
== END 2024-04-04 17:41 | disposition home or self-care (01) ==
LOC: MED 09:35
DX: R18.8 Other ascites (principal); Z87.448 Personal history of other diseases of urinary system; Z79.899 Other long term (current) drug therapy; Z88.6 Allergy status to analgesic agent
CPT/HCPCS: 49083; 99285